=== PATIENT | male | born 1970 | race Caucasian/White ===

== ENCOUNTER 2018-07-25 13:01 | Inpatient (IN) | payer MEDICAID ==
[~2018-07-25] VITALS: Ht 176.5 cm; Wt 93.8 kg
[2018-07-25 15:40] VITALS: BP 120/83
--- NOTE | 2018-07-25 16:20 | Physical Therapy Evaluation ---
PT Evaluation-General Medical Diagnosis Admission Date Jul 25, 2018 at 15:30 Medical Diagnosis: lumbar radiculopathy Onset Date: Jul 18, 2018 Therapy Diagnosis Therapy Diagnosis: impaired mobility, strength, endurance Referral Physician: Diomedes Reason for Referral: Evaluation/Treatment Medical History Additional Medical History chronic back pain Reviewed History: Yes Social History Home: Single Level Current Living Status: Spouse Entry Into Home: Stairs With Railing PT Steps Into Home: 4 Prior/Core FIM Prior Level of Function Functional [place] Measure 0=Not Assessed/NA 4=Minimal Assistance 1=Total Assistance 5=Supervision or Setup 2=Maximal Assistance 6=Modified [place] 3=Moderate Assistance 7=Complete IndependenceIRFPAI Quality Coding Scale 6 Independent with activity with or without an assistive device 5 Patient requires set up or clean up by helper. Patient completes activity by themselves 4 Supervision or touching assist (CGA). [place] provide cues , steadying assist 3 The helper provides less than half the effort to complete the activity 2 The helper provides more than half the effort to complete the activity 1 Dependent. The helper does all the effort to complete an activity 7 Patient refused to complete or attempt activity 9 The patient did not perform the activity before the current illness or injury 88 Not attempted due to Medical conditions or safety concerns Bed Mobility: 7 Transfers (B,C,W/C) (FIM): 7 Gait: 7 PT Evaluation-Current Subjective Patient sitting EOB pre tx, agrees to PT, has 7/10 pain in his low back and right leg. Pt/Family Goals "to be able to use his right leg" Objective Patient Orientation: Person, Place, Situation ROM/Strength ROM Lower Extremities WNL Strenght Lower Extremities right lower extremity (hip flexion 1/5, knee flexion 1/5, knee extension 2/5, dorsiflexion 1/5), left lower extremity (hip flexion 4/5, knee flexion 4/5, knee extension 4/5, dorsiflexion 4/5) Neuromuscular (Tone, Coordination, Reflexes) NT Sensory Vision: Functional Hearing: Functional Sensation Right Lower Extremit: Impaired Sensation Left Lower Extremity: Intact Sensation Lower Extremities Patient has numbness on the medial right calf and foot and bottom of foot. Transfers Functional [place] Measure 0=Not Assessed/NA 4=Minimal Assistance 1=Total Assistance 5=Supervision or Setup 2=Maximal Assistance 6=Modified [place] 3=Moderate Assistance 7=Complete IndependenceIRFPAI Quality Coding Scale 6 Independent with activity with or without an assistive device 5 Patient requires set up or clean up by helper. Patient completes activity by themselves 4 Supervision or touching assist (CGA). [place] provide cues , steadying assist 3 The helper provides less than half the effort to complete the activity 2 The helper provides more than half the effort to complete the activity 1 Dependent. The helper does all the effort to complete an activity 7 Patient refused to complete or attempt activity 9 The patient did not perform the activity before the current illness or injury 88 Not attempted due to Medical conditions or safety concerns Transfers (B, C, W/C) (FIM): 5 Scootin Rollin Roll Left to Right (QC): 4 Supine to/from Sit: 5 Sit to/from Stand: 5 Sit to Lying (QC): 4 Lying to Sitting/Side of Bed(Q: 4 Sit to Stand (QC): 4 Chair/Dqr-cq-Cbfvw Xfer(QC): 4 Car Transfer (QC): 4 Patient performed bed mobility with SBA, supine <-> sit with SBA, sit <-> stand with SBA, transfers with SBA, car transfer with SBA. Patient needs cues for hand placement and positioning. Patient has difficulty moving right leg getting into and out of bed but he can do it with his hands, without assist. Gait Does the Patient Walk?: Yes Mode of Locomotion: Walk Anticipated Mode of Locomotion: Walk Gait (FIM): 2 Walk 10 feet (QC): 4 Walk 50 ft with 2 Turns(QC): 4 Walking 10ft/uneven surface-QC: 4 Distance: 50' Gait Level of Assist: 5 Gait Persons Needed: 1 Gait Assistive Device: FWW Comments/Gait Description Patient can ambulate 50' with a rolling walker with SBA (including 50' with at least 2 turns of 90 degrees and 10' over an uneven surface). Patient ambulates with a stiff right leg, advances it while dorsiflexing his right ankle, which contradicts his strength measurements. He bears a lot of weight through his arms on walker when ambulating. Wheelchair Training Does the Pt Use a Wheelchair?: No Stairs Stairs (FIM): 1 #of Steps: 1 Level of Assist: 4 1 Step (curb) (QC): 4 Assistive Device: Walker Patient can go up and down 1 step using a rolling walker with CGA. Cues for foot placement and safety. Balance Sitting Static: Normal Sitting Dynamic: Normal Standing Static: Good Standing Dynamic: Good Assessment/Needs Patient has impaired mobility, strength, endurance. He states he fell and hurt his back and right leg. From the pain he describes it almost sounds like he may have and SI dysfunction. Rehab Potential: Fair PT Short Term Goals Short Term Goals Time Frame: Aug 01, 2018 Transfers (B,C,W/C) (FIM): 5 Gait (FIM): 5 Gait Distance Comment: 200' Gait Level of Assist: 5 Gait Assistive Device: FWW PT Chcf Goals Choir Director Goals PT Ch[facility] Goals Time Frame: Aug 15, 2018 Transfers (B,C,W/C) (FIM): 6 Sit to Lying (QC): 6 Lying-Sitting on Side/Bed(QC): 6 Sit to Stand (QC): 6 Rollin Roll Left to Right (QC): 6 Chair/Icy-rg-Siyqd Xfer(QC): 6 Car Transfer (QC): 6 Gait (FIM): 6 Distance: 300' Walk 10 feet (QC): 6 Walk 10ft-Uneven Surface(QC): 6 Walk 50ft with 2 Turns (QC): 6 Walk 150 ft (QC): 6 Gait Level of Assist: 6 Gait Assistive Device: FWW Stairs (FIM): 6 # of Steps: 12 1 Step (curb) (QC): 6 4 Steps (QC): 6 12 Steps (QC): 6 Stairs Level Of Assist: 6 PT Plan Problem List Problem List: Activity Tolerance, Functional Strength, Safety, Balance, Gait, Transfer, Bed Mobility Treatment/Plan Treatment Plan: Continue Plan of Care Treatment Plan: Bed Mobility, Education, Functional Activity [place], Functional Strength, Group Therapy, Gait, Safety, Therapeutic Exercise, Transfers Treatment Duration: Aug 15, 2018 Frequency: At least 5 of 7 days/Wk (IRF) Estimated Hrs Per Day: 1.5 hours per day Patient and/or Family Agrees t: Yes Safety Risks/Education Patient Education: Gait Training, Transfer Techniques, Steps, Correct Positioning, Safety Issues Teaching Recipient: Patient Teaching Methods: Demonstration, Discussion Response to Teaching: Reinforcement Needed Discharge Recommendations Plan Patient will perform bed mobility and transfer training, balance and endurance training, functional strengthening, stair training, gait training, and education to improve functional mobility and independence at home. Therapy D/C Recommendations: Home w/ Family Support Time/GCodes Time In: 1530 Time Out: 1550 Total Billed Treatment Time: 20 Total Billed Treatment 1 visit EDY Richey' DIMITRIS CONTRERAS PT Jul 25, 2018 16:20
--- NOTE | 2018-07-25 16:44 | Occupational Therapy Eval ---
OT Evaluation-General/PLF Medical Diagnosis Admission Date Jul 25, 2018 at 15:30 Medical Diagnosis: Radiculopathy Onset Date: Jul 18, 2018 Therapy Diagnosis Therapy Diagnosis: Weakness Height/Weight Height (Feet): 5 Height (Inches): 9.50 Weight (Pounds): 200 Weight (Ounces): 8.0 Precautions Precautions/Isolations: Fall Prevention, Standard Precautions Weight Bear Status Weight Bearing Restriction: Weight Bearing/Tolerated Referral Physician: Diomedes Referral Reason: Activity Tolerance, Self Care, Evaluation/Treatment, Strengthening/ROM Medical History Additional Medical History Pt. states that he has been having pain in his back for 6 months. States that he has numbness in the bottom of his right foot. Reviewed History: Yes Social History Home: Single Level Current Living Status: Spouse Entry Into Home: Stairs With Railing Steps Into Home: 4 ADL-Prior Level of Function Functional [place] Measure 0=Not Assessed/NA 4=Minimal Assistance 1=Total Assistance 5=Supervision or Setup 2=Maximal Assistance 6=Modified [place] 3=Moderate Assistance 7=Complete [place] ADL PLOF Comments Pt. is independent with daily tasks. Self Care Self Care: (Code the patient's need for assistance with bathing, dressing, using the toilet, or eating prior to the current illness, exacerbation, or injury.) Functional Cognition Functional Cognition: (Code the patient's need for assistance with planning regular tasks, such as shopping or remembering to take medicaiton prior to the current illness, exacerbation, or injury.) DME/Equipment: Shower OT Current Status Subjective No pain reported at this time. Appearance Pt. is alert and oriented. Mental Status/Objective Patient Orientation: Person, Place, Time, Situation Current Upper Extremity ROM WFL ADL-Treatment Functional [place] Measure 0=Not Assessed/NA 4=Minimal Assistance 1=Total Assistance 5=Supervision or Setup 2=Maximal Assistance 6=Modified [place] 3=Moderate Assistance 7=Complete IndependenceIRFPAI Quality Coding Scale 6 Independent with activity with or without an assistive device 5 Patient requires set up or clean up by helper. Patient completes activity by themselves 4 Supervision or touching assist (CGA). [place] provide cues , steadying assist 3 The helper provides less than half the effort to complete the activity 2 The helper provides more than half the effort to complete the activity 1 Dependent. The helper does all the effort to complete an activity 7 Patient refused to complete or attempt activity 9 The patient did not perform the activity before the current illness or injury 88 Not attempted due to Medical conditions or safety concerns Transfers (B, C, W/C) (FIM): 5 (SBA sit-stand with walker.) Other Treatments OT eval initiated with pt. Initiated transfer training and discussion regarding home set up and previous level of independence. Education OT Patient Education: Correct positioning, Modified ADL techniques, Progress toward Goal/Update tx plan, Purpose of tx/functional activities, Reviewed precautions, Rehab process, Transfer techniques Teaching Recipient: Patient Teaching Methods: Demonstration, Discussion Response to Teaching: Verbalize Understanding, Return Demonstration OT Short Term Goals Short Term Goals 1=Demonstrate adherence to instructed precautions during ADL tasks. 2=Patient will verbalize/demonstrate understanding of assistive devices/ modifications for ADL. 3=Patient will improve strength/tolerance for activity to enable patient to perform ADL's. OT Mcfp Goals Sales Program Manager Goals Time Frame: Aug 08, 2018 Eating (FIM): 6 Eating (QC): 6 Groomin Oral Hygiene (QC): 6 Bathing(FIM): 6 Shower/Bathe Self (QC): 6 Upper Body Dressing(FIM): 6 Upper Body Dressing (QC): 6 Lower Body Dressing(FIM): 6 Lower Body Dressing (QC): 6 On/Off Footwear (QC): 6 Toileting(FIM): 6 Toileting Hygiene (QC): 6 Transfers (B,C,W/C) (FIM): 6 Toilet/Commode Transfer(FIM): 6 Toilet/Commode Transfer (QC): 6 Shower Transfer(FIM): 6 Additional Goals: 1-Demonstrate ADL Tasks, 2-Verbalize Understanding, 3- ImproveStrength/[place] 1=Demonstrate adherence to instructed precautions during ADL tasks. 2=Patient will verbalize/demonstrate understanding of assistive devices/ modifications for ADL. 3=Patient will improve strength/tolerance for activity to enable patient to perform ADL's. OT Education/Plan Problem List/Assessment Assessment: Decreased Activ Tolerance, Impaired I ADL's, Impaired Self-Care Skills Discharge Recommendations Plan/Recommendations: Continue POC Therapy D/C Recommendations: Home w/ Family Support Comment Equipment needs to be decided at later time. Treatment Plan/Plan of Care Treatment,Training & Education: Yes Patient would benefit from OT for education, treatment and training to promote independence in ADL's, mobility, safety and/or upper extremity function for ADL' s. Plan of Care: ADL Retraining, Functional Mobility, Group Exercise/Act as Ind Treatment Duration: Aug 08, 2018 Frequency: At least 5 of 7 days/Wk (IRF) Estimated Hrs Per Day: 1.5 hours per day Agreement: Yes Rehab Potential: Good Time/GCodes Start Time: 15:55 Stop Time: 16:15 Total Time Billed (hr/min): 20 Billed Treatment Time 1, IMELDA ORANTES OT Jul 25, 2018 16:44
--- OUTSIDE RECORDS SUMMARY | 2018-07-25 16:48 | XMS REPORT ---
Author Author STAN JACKSON [facility] Address [address] [place] [address] Care Team Providers Care Fire Extinguisher Charger Name Role Phone STAN JACKSON Unavailable PROBLEMS Type Condition ICD9-CM Code [id number] Code Onset Dates Condition Status SNOMED Code Problem Positive urine drug screen R82.5 Active 924256370 Problem Acute bilateral low back pain with right-sided sciatica M54.41 Active 625757499 Problem Elevated blood pressure reading R03.0 Active 31738007 ALLERGIES Unknown Allergies SOCIAL HISTORY No smoking Hx information available PLAN OF CARE VITAL SIGNS MEDICATIONS Unknown Medications RESULTS No Results PROCEDURES No Known procedures IMMUNIZATIONS No Known Immunizations
--- OUTSIDE RECORDS SUMMARY | 2018-07-25 16:48 | XMS REPORT ---
Author Author STAN JACKSON Organization [facility] Address [address] [place] [address] Care Team Providers Care Stock Preparation Operator Name Role Phone STAN JACKSON Unavailable PROBLEMS Type Condition ICD9-CM Code [id number] Code Onset Dates Condition Status SNOMED Code Problem Acute bilateral low back pain with right-sided sciatica M54.41 Active 092610920 Problem Positive urine drug screen R82.5 Active 822315662 Problem Elevated blood pressure reading R03.0 Active 57359096 ALLERGIES Substance Reaction Event Type Date Status N.K.D.A. Unknown Non Drug Allergy Aug, Unknown SOCIAL HISTORY No smoking Hx information available PLAN OF CARE Activity Details Follow Up TBD Reason: VITAL SIGNS Height 70.2 in 2016-09-14 Weight 204.3 lbs 2016-09-14 Temperature 98.2 degrees Fahrenheit 2016-09-14 Heart Rate 96 bpm 2016-09-14 Respiratory Rate 18 2016-09-14 BMI 29.14 kg/m2 2016-09-14 Blood pressure systolic 142 mmHg 2016-09-14 Blood pressure diastolic 98 mmHg 2016-09-14 MEDICATIONS Unknown Medications RESULTS Name Result Date Reference Range URINE DRUG SCREEN (IN HOUSE) 2016-09-14 Lot # [id number] Exp date 05/2017 Control positive COCAINE neg AMPH neg MTD neg THC pos OPIATE neg BENZO pos PCP neg BAR neg OXY neg MAMP pos TCA BUP MDMA UA LONG DIP (IN HOUSE) 2016-09-14 Lot # [id number] Exp date 03/2017 Clarity clear Color yellow Odor none GLU negative BIN 1+ KET Trace SG > 1.030 BLO negative pH 6.0 Protein negative URO 1.0 E.U./dL NIT neg AGUSTINA neg Lot # Exp date PROCEDURES Procedure Date Ordered Related Diagnosis Body Site DRUG SCREEN NON TLC DEVICES Sep 14, 2016 Office Visit, New Pt., Level 3 Sep 14, 2016 URINALYSIS, AUTO, W/O SCOPE Sep 14, 2016 IMMUNIZATIONS No Known Immunizations
--- NOTE | 2018-07-25 17:55 | PM&R Post Admission Assessment ---
Post Admission Physician Asses Date seen by provider: Jul 25, 2018 Time seen by provider: 17:25 The preadmission screen agrees with the post admission assessment that the patient is a good candidate for inpatient rehabilitation. The patient will have a comprehensive program of inpatient rehabilitation with a goal of maximizing level of functional independence prior to discharge home with family. The patient will have PT/OT ninety minutes per day, each discipline, five days a week for 2 weeks for gait, strengthening, conditioning, balance, ADLs, any patient/family/caregiver training as necessary. Speech therapy to do cognitive assessment and treat as indicated. Rehabilitation nursing to assist with bowel, bladder, skin, wound care, medication administration, pain management. Legal Administrative Secretary to assist with discharge planning, community reentry. SCD's and lovenox subcut for DVT prophylaxis. He appears to be well motivated to participate in three hours of therapy a day. He should be able to tolerate three hours of therapy a day from a medical standpoint. He should benefit from the three hours of therapy a day. He has a reasonable discharge plan, reasonable discharge rehabilitation goals and a supportive family. He has various comorbidities that need to be closely monitored with medications and treatments adjusted on a daily basis as needed. These include: chronic back and radicular pain rt leg [facility] code 04.130 Etiologic DX Acute lumbar radiculopathy Barriers to discharge for this patient who had been independent prior to this are for him to be modified independent to supervision for ADLs and mobility skills prior to discharge home with family, so as to lessen the burden of the caregivers. Risks for this patient include: 1. Fall 2. Fracture 3. DVT 4. Pulmonary embolism 5. Wound infection 6. Skin breakdown 7. Contractures 8. Poorly controlled pain 9. Urinary retention 10. UTI 11. Respiratory infection 12. Aspiration Estimated Length of Stay: 14 days Prognosis: Rehab prognosis appears good for goal of discharge home with family modified independent to supervision for ADLs and mobility skills. Date Identified: Jul 25, 2018 Time Identified: 17:30 Action Plan to Resolve CSMI: Transfer meds reviewed Lovenox subcut added for dvt prophylaxis General: Alert, Oriented X3, Cooperative, No Acute Distress, Other (c/o rt leg weakness and pain) HEENT: Atraumatic, PERRLA, EOMI, Mucous Memb Moist/[address] [place] Neck: Supple, No JVD Lungs: Clear to Auscultation Heart: Regular Rate Abdomen: Normal Bowel Sounds, Soft, No Tenderness Extremities: No Edema Skin: No Rashes, No Breakdown, No Significant Lesion Neuro: Other (and weakness RLE 1to 2/5 on the left 4/5) Psych/Mental Status: Mental Status NL JEOVANY COUGHLIN MD Jul 25, 2018 17:54
[2018-07-25] MEDS: ACETAMINOPHEN 500 MG TAB (TYLENOL) PO SCH (17:59)
[2018-07-25] MEDS: ENOXAPARIN 40 MG/0.4 ML (LOVENOX) SYR SC SCH (18:31)
--- NOTE | 2018-07-25 19:15 | HISTORY AND PHYSICAL ---
DATE OF SERVICE: 07/25/2018 CHIEF COMPLAINT: Painful right leg with weakness and difficulty to walk. HISTORY OF PRESENT ILLNESS: The patient is a 48-year-old male who is unemployed from a [employer] and lives with his spouse in [place], [place] who has had chronic back pain, but has an exacerbation when he twisted his leg. He was seen at [facility] by neurology and their assessment was lumbar radiculopathy acute associated with gait abnormality and foraminal stenosis due to intervertebral disk disease with associated right leg weakness. There is also history of apparent polysubstance abuse and the patient is currently only on Tylenol, Flexeril, Celebrex and gabapentin. Currently, he is min assist for gait and transfers. He is independent for eating, set up for upper body dressing, min to mod assist for lower body dressing. He is reported to be continent of bowel and bladder. He is complaining of intermittent pain and numbness in the right leg with associated weakness. The patient was seen by neurosurgery as well. He had been independent prior to this. PAST MEDICAL HISTORY: Chronic back pain. He reports having seen a pain doctor in the past for an injection, hypothyroidism, tobaccoism. PAST SURGICAL HISTORY: Knee and shoulder arthroscopies. ALLERGIES: No known medication allergies. FAMILY HISTORY: Noncontributory. SOCIAL HISTORY: Lives in a [place] home with his spouse and children. MRI of the pelvis revealed L4-L5 vertebral body contusion from trauma apparently, disk herniation and foraminal stenosis, significant lumbar spine degenerative disk disease and disk bulging with some neural foraminal stenosis. REVIEW OF SYSTEMS: Pain, weakness, numbness in the right leg. MEDICATIONS: Tylenol Extra Strength 1000 mg p.o. q.8 hours, Celebrex 200 mg p.o. b.i.d., Flexeril 10 mg p.o. q.8 hours p.r.n. muscle spasm, gabapentin 300 mg p.o. t.i.d. PHYSICAL EXAMINATION: GENERAL: Significant for a male appearing stated age, lying in bed, no acute distress. VITAL SIGNS: He is afebrile, pulse is 82, respirations 20, blood pressure 120/83, O2 sat 100% on room air. HEENT: Vision, speech, hearing grossly intact. No oral lesion is noted. NECK: Supple without mass. HEART: Regular rhythm. CHEST: Clear. ABDOMEN: Soft, nontender, bowel sounds present. EXTREMITIES: No lower leg edema, no calf tenderness. MUSCULOSKELETAL: The patient has functional passive range of motion in all 4 extremities. NEUROLOGIC: Sensation is impaired to touch with some numbness reported in the medial right calf and foot and bottom of foot; strength on the left is 4/5, on the right varies between 2-/5 to 2+/5. Cognition is grossly intact. IMPRESSION: 1. Ambulatory dysfunction secondary to foraminal stenosis due to intervertebral disk disease with associated right leg weakness, pain and lumbar radiculopathy. 2. History of polysubstance abuse. 3. Tobaccoism PLAN: The patient will have a comprehensive program of inpatient rehabilitation with goal of maximizing level of functional independence prior to discharge home with spouse. The patient will have PT, OT 90 minutes per day for gait strengthening, conditioning, ADLs, any modalities as needed 5 days a week for 2 weeks, 90 minutes per day each discipline. With the above goals in mind, rehabilitation nursing assist with bowel, bladder, skin care, medication administration, pain management and licensed social worker for discharge planning, community reentry. Avoid controlled substances as much as possible and use Medrol Dosepak and or Lidoderm patch as needed. Social work to assist with discharge planning, community reentry. Speech therapy to do cognitive assessment and treat as indicated. Please see post-admission physician evaluation, which is a separate document for details of bladder care. Routine admission labs.Lovenox for DVT Prophylaxis. ESTIMATED LENGTH OF STAY: 14 days. PROGNOSIS: Rehab prognosis appears good for goal of discharging home with spouse, modified independent to supervision for ADLs and mobility skills with improved strength and endurance and decreased pain. DIET: Regular. CODE STATUS: Full code. Job ID: [id number] DocumentID: [id number] Dictated Date: 07/25/2018 18:39:36 Tower Air Traffic Control Specialist Date: 07/25/2018 19:14:39 Dictated By: JEOVANY COUGHLIN MD [facility]
[2018-07-25] MEDS: GABAPENTIN 300 MG (NEURONTIN) CAP PO SCH (20:24)
[2018-07-25] MEDS: CYCLOBENZAPRINE 10 MG (FLEXERIL) TAB PO PRN (20:24)
[2018-07-25] MEDS ORDERED: CELECOXIB 100 MG (CeleBREX) CAP PO SCH (21:00)
[2018-07-25] MEDS ORDERED: KETOROLAC 30 MG/ML VIAL IVP PRN (21:30)
[2018-07-26] MEDS: ACETAMINOPHEN 500 MG TAB (TYLENOL) PO SCH (01:11)
[2018-07-26 05:27] VITALS: BP 115/74
[2018-07-26 06:57] LABS: BASOPHILS # (AUTO) 0.1 10^3/uL (0.0-0.1); BASOPHILS % (AUTO) 1 % (0-10); EOSINOPHILS # (AUTO) 0.5 10^3/uL (0.0-0.3); EOSINOPHILS % (AUTO) 4 % (0-10); HEMATOCRIT 41 % (40-54); HEMOGLOBIN 13.8 G/DL (13.3-17.7); LYMPHOCYTES # (AUTO) 1.5 X 10^3 (1.0-4.0); LYMPHOCYTES % (AUTO) 14 % (12-44); MEAN CORPUSCULAR HEMOGLOBIN 28 PG (25-34); MEAN CORPUSCULAR HGB CONC 34 G/DL (32-36); MEAN CORPUSCULAR VOLUME 84 FL (80-99); MEAN PLATELET VOLUME 10.4 FL (7.4-10.4); MONOCYTES # (AUTO) 1.1 X 10^3 (0.0-1.0); MONOCYTES % (AUTO) 10 % (0-12); NEUTROPHILS # (AUTO) 7.7 X 10^3 (1.8-7.8); NEUTROPHILS % (AUTO) 71 % (42-75); PLATELET COUNT 269 10^3/uL (130-400); RED BLOOD COUNT 4.91 10^6/uL (4.35-5.85); RED CELL DISTRIBUTION WIDTH 14.2 % (10.0-14.5); WHITE BLOOD COUNT 10.8 10^3/uL (4.3-11.0)
[2018-07-26 07:18] LABS: ALANINE AMINOTRANSFERASE 76 U/L (0-55); ALBUMIN 3.7 GM/DL (3.2-4.5); ALKALINE PHOSPHATASE 124 U/L (40-136); BILIRUBIN,TOTAL 0.4 MG/DL (0.1-1.0); BUN/CREATININE RATIO 18; CALCIUM 9.4 MG/DL (8.5-10.1); CARBON DIOXIDE 27 MMOL/L (21-32); CHLORIDE 105 MMOL/L (98-107); CREATININE SERUM 0.78 MG/DL (0.60-1.30); GFR ESTIMATED > 60; GLUCOSE 88 MG/DL (70-105); POTASSIUM 4.2 MMOL/L (3.6-5.0); SODIUM 140 MMOL/L (135-145); TOTAL PROTEIN 6.8 GM/DL (6.4-8.2)
--- NOTE | 2018-07-26 08:11 | Consultation ---
History of Present Illness History of Present Illness Patient Consulted On(lorin/time) 07/26/18 08:06 Time Seen by Provider: 08:06 History of Present Illness Patient age 48 lives with spouse in [facility]. Patient has chronic back pain. Patient twisted his leg and hurt his back again. Patient has history of smoking. Hypothyroid. Surgeries left knee and left shoulder. Family history bone cancer mother and father. Patient has elevated liver tests and on Tylenol and Celebrex to put on hold Allergies and Home Medications Allergies Coded Allergies: No Known Drug Allergies (Unverified , 07/25/18) Patient Home Medication List Home Medication List Reviewed: Yes Past Nsqnlmw-Gvyblv-Auzbvj Hx Patient Social History Alcohol Use: Occasionally Uses Alcohol Beverage of Choice: Beer Recreational Drug Use: No Smoking Status: Current Everyday Smoker Type Used: Cigarettes Recent Foreign Travel: No Contact w/Someone Who Travel: No Recent Infectious Disease Expo: No Immunizations Up To Date Date of Influenza Vaccine: Jul 25, 2018 Seasonal Allergies Seasonal Allergies: No Past Medical History Respiratory: No Currently Using CPAP: No Currently Using BIPAP: No Neurological: No Genitourinary: No Gastrointestinal: No Musculoskeletal: Yes Degenerate Disk Disease, Arthritis, Back Injury Endocrine: Yes Cancer: No Psychosocial: Yes Depression Integumentary: No Review of Systems-General Constitutional: no symptoms reported EENTM: no symptoms reported Respiratory: no symptoms reported Cardiovascular: no symptoms reported Gastrointestinal: no symptoms reported Genitourinary: no symptoms reported Physical Exam-General Problems Physical Exam Vital Signs Vital Signs - First Documented 07/25/18 15:40 Temp 96.5 Pulse 82 Resp 20 B/P (MAP) 120/83 (95) Pulse Ox 100 O2 Delivery Room Air Capillary Refill : General Appearance: WD/WN, no apparent distress Eyes: Bilateral Eye Normal Inspection HEENT: normal ENT inspection Neck: non-tender, full range of motion Respiratory: chest non-tender, normal breath sounds, no respiratory distress, no accessory muscle use Cardiovascular: regular rate, rhythm, no murmur Gastrointestinal: non tender, soft Assessment/Plan Assessment/Plan Admission Diagnosis/Plan Lumbar radiculopathy. Elevated liver tests. Hypothyroid. Tobaccoism Admission Status: Inpatient Order (span 2 midnights) Reason for Inpatient Admission: Back pain. Clinical Quality Measures DVT/VTE Risk/Contraindication: Risk Factor Score Per Nursin RFS Level Per Nursing on Admit: 2=Moderate CRISTHIAN DEL TORO DO Jul 26, 2018 08:11
[2018-07-26] MEDS: CYCLOBENZAPRINE 10 MG (FLEXERIL) TAB PO PRN ×2 (08:23→20:19)
[2018-07-26] MEDS: GABAPENTIN 300 MG (NEURONTIN) CAP PO SCH ×3 (08:23→20:19)
[2018-07-26 08:28] LABS: BAND NEUTROPHILS 4 %; BASOPHILS % (MANUAL) 0 %; EOSINOPHILS % (MANUAL) 5 %; LYMPHOCYTES % (MANUAL) 16 %; MONOCYTES % (MANUAL) 5 %; MYELOCYTES % 6 %; NEUTROPHILS % (MANUAL) 64 %; RBC MORPH NORMAL
--- NOTE | 2018-07-26 08:56 | Physical Therapy Daily Note ---
PT Daily Note-Current Subjective Patient in bed pre tx, agrees to PT, has pain of 8/10 in back. Nurse got patient pain meds during treatment. Patient dressed upper with independence. Appearance Patient BTB post tx with nurse call, phone, tray, all needs met. Mental Status Patient Orientation: Normal For Age Transfers Functional [place] Measure 0=Not Assessed/NA 4=Minimal Assistance 1=Total Assistance 5=Supervision or Setup 2=Maximal Assistance 6=Modified [place] 3=Moderate Assistance 7=Complete IndependenceIRFPAI Quality Coding Scale 6 Independent with activity with or without an assistive device 5 Patient requires set up or clean up by helper. Patient completes activity by themselves 4 Supervision or touching assist (CGA). [place] provide cues , steadying assist 3 The helper provides less than half the effort to complete the activity 2 The helper provides more than half the effort to complete the activity 1 Dependent. The helper does all the effort to complete an activity 7 Patient refused to complete or attempt activity 9 The patient did not perform the activity before the current illness or injury 88 Not attempted due to Medical conditions or safety concerns Transfers (B, C, W/C) (FIM): 6 Scootin Rollin Supine to/from Sit: 6 Sit to/from Stand: 5 Bed to/from Chair: 5 Occasional cues for hand placement and safety during transfers. Gait Training Gait (FIM): 5 Distance: 150'x2 Gait Level of Assist: 5 Gait Persons Needed: 1 Gait Assistive Device: FWW Antalgic ambulation with stiff right leg but patient dorsiflexes foot and has a heel strike. Exercises Seated Therapy Exercises: Ankle pumps, Long arc quads Seated Reps: 15 Standing: Hip Abduction, Heel/toe raises, Marching, Mini squats Standing Reps: 20 NuStep Minutes: 15 NuStep Workload: 5 Treatments bed mobility and transfers, ambulation, functional strengthening Assessment Current Status: Fair Progress Improve overall mobility. Patient was able to perform a LAQ on the right side. PT Short Term Goals Short Term Goals Time Frame: Aug 01, 2018 Transfers (B,C,W/C) (FIM): 5 Gait (FIM): 5 Gait Distance Comment: 200' Gait Level of Assist: 5 Gait Assistive Device: FWW PT Vascular Radiologist Goals Vascular Radiologist Goals PT Chcf Goals Time Frame: Aug 15, 2018 Transfers (B,C,W/C) (FIM): 6 Sit to Lying (QC): 6 Lying-Sitting on Side/Bed(QC): 6 Sit to Stand (QC): 6 Rollin Roll Left to Right (QC): 6 Chair/Avm-sh-Bkgid Xfer(QC): 6 Car Transfer (QC): 6 Gait (FIM): 6 Distance: 300' Walk 10 feet (QC): 6 Walk 10ft-Uneven Surface(QC): 6 Walk 50ft with 2 Turns (QC): 6 Walk 150 ft (QC): 6 Gait Level of Assist: 6 Gait Assistive Device: FWW Stairs (FIM): 6 # of Steps: 12 1 Step (curb) (QC): 6 4 Steps (QC): 6 12 Steps (QC): 6 Stairs Level Of Assist: 6 PT Plan Problem List Problem List: Activity Tolerance, Functional Strength, Safety, Balance, Gait, Transfer Treatment/Plan Treatment Plan: Continue Plan of Care Treatment Plan: Bed Mobility, Education, Functional Activity Wilfrido, Functional Strength, Group Therapy, Gait, Safety, Therapeutic Exercise, Transfers Treatment Duration: Aug 15, 2018 Frequency: At least 5 of 7 days/Wk (IRF) Estimated Hrs Per Day: 1.5 hours per day Patient and/or Family Agrees t: Yes Safety Risks/Education Patient Education: Gait Training, Transfer Techniques, Correct Positioning, Safety Issues Teaching Recipient: Patient Teaching Methods: Demonstration, Discussion Response to Teaching: Reinforcement Needed Time/GCodes Time In: 0800 Time Out: 0900 Total Billed Treatment Time: 60 Total Billed Treatment 1 visit EX 30' GT 20' FA 10' DIMITRIS CONTRERAS PT Jul 26, 2018 08:56
[2018-07-26] MEDS: DICLOFENAC 1% GEL 100 GM (VOLTAREN) TUBE TOP PRN (09:50)
--- NOTE | 2018-07-26 10:43 | PM & R (SOAP) Progress Note ---
Subjective This was a face to face visit with the patient. Date Seen by Provider: Jul 26, 2018 Time Seen by Provider: 09:30 Subjective/Events-last exam Patient was seen in his room this AM reports a restless sleep .Point to point tenderness over the Rt SI joint area as location of pain Lies on left side.Patient SBA for transfers.RN contacted me last night re request for increased pain med Toradol IM and Tramadol ordered-trying to avoid controlled substances Offered Medrol dosepak bu patient unclear if steroids have helped in past Date Identified: Jul 26, 2018 Time Identified: 09:30 Medication Intervention: Pain management as per above Review of Systems Musculoskeletal: back pain, leg pain Objective Physician Exam Last Set of Vital Signs Vital Signs Date Time Temp Pulse Resp B/P (MAP) Pulse Ox O2 Delivery O2 Flow Rate FiO2 07/26/18 05:27 96.8 75 20 115/74 (88) 96 Room Air Capillary Refill : I&O Intake and Output 07/26/18 00:00 Intake Total 300 ml Output Total 0 ml Balance 300 ml Intake Oral 300 ml Output Urine Total 0 ml Daily Weight Change Yes, 14-23 lbs General: Alert, Oriented X3, Cooperative, No Acute Distress, Other (c/o rt leg weakness and pain) HEENT: Atraumatic, PERRLA, EOMI, Mucous Memb Moist/[place] Neck: Supple, No JVD Lungs: Clear to Auscultation Heart: Regular Rate Abdomen: Normal Bowel Sounds, Soft, No Tenderness Extremities: No Edema Skin: No Rashes, No Breakdown, No Significant Lesion Neuro: Other (and weakness RLE 1to 2/5 on the left 4/5) Psych/Mental Status: Mental Status NL Results Lab Data Laboratory Tests 07/26/18 06:40: White Blood Count 10.8, Red Blood Count 4.91, Hemoglobin 13.8, Hematocrit 41, Mean Corpuscular Volume 84, Mean Corpuscular Hemoglobin 28, Mean Corpuscular Hemoglobin Concent 34, Red Cell Distribution Width 14.2, Platelet Count 269, Mean Platelet Volume 10.4, Neutrophils (%) (Auto) 71, Lymphocytes (%) (Auto) 14 , Monocytes (%) (Auto) 10, Eosinophils (%) (Auto) 4, Basophils (%) (Auto) 1, Neutrophils # (Auto) 7.7, Lymphocytes # (Auto) 1.5, Monocytes # (Auto) 1.1H, Eosinophils # (Auto) 0.5H, Basophils # (Auto) 0.1, Neutrophils % (Manual) 64, Lymphocytes % (Manual) 16, Monocytes % (Manual) 5, Eosinophils % (Manual) 5, Basophils % (Manual) 0, Myelocytes % 6, Band Neutrophils 4, Blood Morphology Comment NORMAL, Sodium Level 140, Potassium Level 4.2, Chloride Level 105, Carbon Dioxide Level 27, Anion Gap 8, Blood Urea Nitrogen 14, Creatinine 0.78, Estimat Glomerular Filtration Rate > 60, BUN/Creatinine Ratio 18, Glucose Level 88, Calcium Level 9.4, Corrected Calcium 9.6, Total Bilirubin 0.4, Aspartate Amino Transf (AST/SGOT) 39H, Alanine Aminotransferase (ALT/SGPT) 76H, Alkaline Phosphatase 124, Total Protein 6.8, Albumin 3.7 Assessment/Plan Assessment and Plan 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
--- NOTE | 2018-07-26 10:50 | Occupational Ther Daily Note ---
OT Current Status-Daily Note Subjective Pt. states that he did not sleep well last night. Appearance Pt. in bed. Agrees to work with therapy. Mental Status/Objective Patient Orientation: Person, Place, Time, Situation Functional Daniel Measure 0=Not Assessed/NA 4=Minimal Assistance 1=Total Assistance 5=Supervision or Setup 2=Maximal Assistance 6=Modified Daniel 3=Moderate Assistance 7=Complete Daniel ADL-Treatment Functional Daniel Measure 0=Not Assessed/NA 4=Minimal Assistance 1=Total Assistance 5=Supervision or Setup 2=Maximal Assistance 6=Modified Daniel 3=Moderate Assistance 7=Complete IndependenceIRFPAI Quality Coding Scale 6 Independent with activity with or without an assistive device 5 Patient requires set up or clean up by helper. Patient completes activity by themselves 4 Supervision or touching assist (CGA). [place] provide cues , steadying assist 3 The helper provides less than half the effort to complete the activity 2 The helper provides more than half the effort to complete the activity 1 Dependent. The helper does all the effort to complete an activity 7 Patient refused to complete or attempt activity 9 The patient did not perform the activity before the current illness or injury 88 Not attempted due to Medical conditions or safety concerns Grooming (FIM): 5 (SBA to stand and brush teeth and hair at sink. Utilized walker.) Oral Hygiene (QC): 4 Bathing (FIM): 5 (Pt. requires SBA in shower. Somewhat impulsive at times. Requires cues for safety.) Shower/Bathe Self (QC): 4 Upper Body (FIM): 5 Upper Body Dressing (QC): 4 Lower Body Dressing (FIM): 4 (Pt. is able to doff pants in stance. Requires cues to sit due to safety concerns. Pt. able to doff socks while sitting. Able to don pants with SBA and left sock with SBA. Required min assistance to don right sock as pt. was educated in back safety.) Lower Body Dressing (QC): 4 On/Off Footwear (QC): 4 Toileting (FIM): 5 (SBA for all kisha care.) Toileting Hygiene (QC): 4 Transfers (B, C, W/C) (FIM): 4 (CGA to ambulate with walker as pt. states that he does not feel steady, and that he does not feel the bottom of his right foot. ) Toilet/Commode Transfer (FIM): 5 Toilet Transfer (QC): 4 Shower Transfer(FIM): 5 Other Treatment Pt. was educated regarding back safety and back precautions due to back pain. Pt. verbalizes understanding. Pt. shown and issued adaptive equipment but unable to practice yet. Pt. verbalizes that it has been difficult to live with this pain. Pt. has three children at home that are under three years old. Pt. states that he would like to be more independent and to be able to take care of his children. Pt. back in bed at end of treatment. Education OT Patient Education: Correct positioning, Modified ADL techniques, Progress toward Goal/Update tx plan, Purpose of tx/functional activities, Reviewed precautions, Rehab process, Transfer techniques, Use of adapted equipment Teaching Recipient: Patient Teaching Methods: Demonstration, Discussion Response to Teaching: Verbalize Understanding, Return Demonstration OT Short Term Goals Short Term Goals Transfers (B,C,W/C) (FIM): 5 1=Demonstrate adherence to instructed precautions during ADL tasks. 2=Patient will verbalize/demonstrate understanding of assistive devices/ modifications for ADL. 3=Patient will improve strength/tolerance for activity to enable patient to perform ADL's. OT Assisted Goals Rn Practitioner Goals Time Frame: Aug 08, 2018 Eating (FIM): 6 Eating (QC): 6 Groomin Oral Hygiene (QC): 6 Bathing(FIM): 6 Shower/Bathe Self (QC): 6 Upper Body Dressing(FIM): 6 Upper Body Dressing (QC): 6 Lower Body Dressing(FIM): 6 Lower Body Dressing (QC): 6 On/Off Footwear (QC): 6 Toileting(FIM): 6 Toileting Hygiene (QC): 6 Transfers (B,C,W/C) (FIM): 6 Toilet/Commode Transfer(FIM): 6 Toilet/Commode Transfer (QC): 6 Shower Transfer(FIM): 6 Additional Goals: 1-Demonstrate ADL Tasks, 2-Verbalize Understanding, 3- ImproveStrength/Wilfrido 1=Demonstrate adherence to instructed precautions during ADL tasks. 2=Patient will verbalize/demonstrate understanding of assistive devices/ modifications for ADL. 3=Patient will improve strength/tolerance for activity to enable patient to perform ADL's. OT Education/Plan Problem List/Assessment Assessment: Decreased Activ Tolerance, Decreased Safety Aware, Decreased UE Strength, Impaired Funct Balance, Impaired I ADL's, Impaired Self-Care Skills Discharge Recommendations Plan/Recommendations: Continue POC Therapy D/C Recommendations: Home w/ Family Support Equpiment Recommendations-D/C: Hip Kit Treatment Plan/Plan of Care Treatment,Training & Education: Yes Patient would benefit from OT for education, treatment and training to promote independence in ADL's, mobility, safety and/or upper extremity function for ADL' s. Plan of Care: ADL Retraining, Functional Mobility, Group Exercise/Act as Ind Treatment Duration: Aug 08, 2018 Frequency: At least 5 of 7 days/Wk (IRF) Estimated Hrs Per Day: 1.5 hours per day Agreement: Yes Rehab Potential: Good Time/GCodes Start Time: 09:30 Stop Time: 10:35 Total Time Billed (hr/min): 65 Billed Treatment Time 1, ADL x 4 IMELDA FLORES OT Jul 26, 2018 10:50
[2018-07-26] MEDS: KETOROLAC 30 MG/ML VIAL IM PRN ×2 (13:06→20:23)
--- NOTE | 2018-07-26 15:38 | ST Cognitive Linguistic Eval ---
Speech Evaluation-General Medical Diagnosis lumbar radiculopathy Onset Date: Jul 18, 2018 Therapy Diagnosis Therapy Diagnosis: Cognition Precautions Precautions/Isolations: Fall Prevention, Standard Precautions Referral Referring Physician: Dr. Hercules Reason for Referral: Evaluation/Treatment Medical History Reviewed History: Yes Social History Current Living Status: Spouse Speech PLF-Current Status Prior Level of Function Independent Subjective Pt in bed. Pleasant and cooperative. Pain Numeric Pain Scale: 8 Location: Right Location Body Site: Cheek Pain Description: Stabbing Language Eval: Auditory Comprehends Simple Yes/No Ques: Functional Follows Complex Directions: Functional Follows General Conversations: Functional Language Eval: Verbal Language Completes Spontaneous Greeting: Functional Produces Auto, Serial Info: Functional Word Finding: Functional Requests Basic Needs: Functional States Basic Personal Info: Functional Expresses Complex Ideas: Functional Language Evaluation: Reading NT Cognitive Patient Orientation oriented x 3 Objective Cognitive Domain Attention: WNL Memory: WNL Problem Solving: Functional Objective Results [facility] Cogntive/Communication Assessment was administered to assess cognitive -linguistic functioning. Results are as follows: Memory - 3 word recall was 3/3 correct for immediate, delayed and remote delay. Sequencing/organization - Pt was 4/4 correct Problem Solving - Simple was 4/4 correct; Abstract was 2/2 correct and Comparisons was 5/5 correct. Speech/language WNL Oral Motor/Speech Production WNL Impression Pt demonstrates functional cognitive-linguistic skills. No skilled ST indicated. Communication/Social Cognition Comprehension: 7 Expression: 7 Social Interaction: 7 Problem Solvin Memory: 7 Speech Patient Assess Expression of Ideas/Wants: Expression (4) Understanding Verbal Content: Understands (4) Brief Interview-Mental Status: Yes Repetition of Three Words: Three (3) Temporal Orientation: Year: Correct (3) Temporal Orientation: Month: Accurate within 5 days(2) Temporal Orientation: Day: Correct (1) Recall : Wear to say "Sock": Yes, no cue required (2) Recall : Color: Yes, no cue required (2) Recall : Bed: Yes, no cue required (2) Speech Short Term Goals Short Term Goals Short Term Goals no goals established as pt does not require skilled ST Speech Long-Term Goals Long-Term Goals No goals established as pt does not require skilled ST Speech-Plan Patient/Family Goals Patient/Family Goals: to return home. Treatment Plan Speech Therapy Treatment Plan: Discontinue ST pt does not require skilled ST Frequency: Modified Program (IRF) (0) Estimated Hrs Per Day: Other (0) Rehab Potential: Good Pt/Family Agrees to Plan: Yes Safety Risks/Education Teaching Recipient: Patient Teaching Methods: Discussion Response to Teaching: Verbalize Understanding Time Speech Therapy Time In: 14:55 Speech Therapy Time Out: 15:15 Total Billed Time: 20 Billed Treatment Time 1, WILDA LAMBERT Jul 26, 2018 15:38
--- NOTE | 2018-07-26 15:40 | Therapy Group Daily Note ---
Therapy Daily Group Note Patient Education Topic Other List Below (Transfer Training) Exercises LE Seated Exercise, UE Exercise Other/Notes Pt ambulated to PT/OT Group using FWW. Group consists of Introduction (Name, Where you are from & [place] Ingredient), Socialize, UE/ LE EX, Education and Demonstration of proper Transfer Techniques. Pt actively participated in group by appropriately listening to peer during discussion, performing Exercises and listening and giving feedback during transfer training. Pt returns to room at end of Group to rest. Start Time: 13:00 Stop Time: 14:15 Total Billed Treatment Time: 75 Total Billed Treatment 1, GRP BERNADETTE FAN PIN TICKET MACHINE OPERATOR Jul 26, 2018 15:40
--- NOTE | 2018-07-26 16:06 | Individualized Plan of Care ---
Individualized Plan of Care Rehab Nursing IPOC Order Admission Date Jul 25, 2018 at 15:30 Current Orders Orders Sequential Compression Device 08,20 (07/25/18 16:38) Dvt/Vte Risk - Notifiy Physici 08 (07/25/18 16:38) Admission Order(Inpt,Obs,Sdc) (07/25/18 17:38) Vital Signs: Routine (Order) 08,16,00 (07/25/18 17:38) Sequential Compression Device 08,20 (07/25/18 17:38) Chef & Owner-Inpt Rehab Con (07/25/18 17:38) Rehab Nursing Orders-Ipoc (07/25/18 17:38) Physical Therapy Rehab Orders (07/25/18 17:38) Occupational Therapy Rehab Ord (07/25/18 17:38) Speech Therapy Rehab Orders (07/25/18 17:38) Turn And Reposition Q2HR (07/25/18 17:38) Intake & Output 06,14,22 (07/25/18 17:38) Precautions (Aru) (07/25/18 17:38) Weekly Weight (Lbs) WEEK (07/25/18 17:38) Code/Resuscitation (07/25/18 17:38) Initiate Admission Nursing Pro .admission (07/25/18 17:38) Cbc With Automated Diff (07/26/18 06:00) Comprehensive Metabolic Panel (07/26/18 06:00) Consult Physician (07/25/18 17:42) General/Regular (07/25/18 Dinner) Acetaminophen Tablet (Tylenol Tablet) (07/25/18 17:45) Celecoxib Capsule (Celebrex Capsule) (07/25/18 21:00) Cyclobenzaprine Tablet (Flexeril Tablet) (07/25/18 17:45) Gabapentin Capsule/Tablet (Neurontin Cap (07/25/18 21:00) Enoxaparin Injection (Lovenox Injection) (07/25/18 18:00) Tramadol Tablet (Ultram Tablet) (07/25/18 21:30) Ketorolac Injection (Toradol Injection) (07/25/18 21:30) Manual Differential (07/26/18 06:40) Ketorolac Injection (Toradol Injection) (07/26/18 09:30) Diclofenac 1% Gel (Voltaren 1% Gel) (07/26/18 08:30) Patient Visit (07/25/18 ) Pt Eval Moderate Complexity (07/25/18 ) Patient Visit (07/26/18 ) Exercise Therap, Ea 15 Min (07/26/18 ) Gait Training, Ea 15 Min (07/26/18 ) Functional Activities, Ea 15 (07/26/18 ) Patient Visit (07/26/18 ) Therapeutic, Group (07/26/18 ) Rehab Nursing Orders: Disease Management & Educaiton, DVT Prophylaxis, Fall Prevention, Fluid/Electrolyte/Nutrition Mgmt, Infection Prevention, Medication Management & Education, Management of Risks & Complications, Management of Skin Intergrity, Nutrition Management, Pain Management, Patient/Family Support PT IPOC Problem List: Activity Tolerance, Functional Strength, Safety, Balance, Gait, Transfer Treatment Plan: Continue Plan of Care Bed Mobility, Education, Functional Activity Wilfrido, Functional Strength, Group Therapy, Gait, Safety, Therapeutic Exercise, Transfers Treatment Duration: Aug 15, 2018 Frequency: At least 5 of 7 days/Wk (IRF) Estimated Hrs Per Day: 1.5 hours per day OT IPOC Problems: Decreased Activ Tolerance, Decreased Safety Aware, Decreased UE Strength, Impaired Funct Balance, Impaired I ADL's, Impaired Self-Care Skills OT Treatment, Training and Edu: Yes Plan of Care: ADL Retraining, Functional Mobility, Group Exercise/Act as Ind Treatment Duration: Aug 08, 2018 Frequency: At least 5 of 7 days/Wk (IRF) Estimated Hrs Per Day: 1.[address] IPOC Speech Therapy Treatment Plan: Discontinue ST Treatment Duration: Jul 26, 2018 Frequency: Modified Program (IRF) Estimated Hrs Per Day: Other Chef & Owner/Case Mgmt Chef & Owner/Case Managemen: Discharge Planning, Patient/Family Counseling Dietitian/Test Engine Evaluator Dietitian/Test Engine Evaluator to monitor nutritional status and make changes and/or recommendations as needed and work with speech pathology on dietary upgrades as the occur. Physician IPOC Medical Issues being managed closely and that require the 24 hour availability of a physician: pain management Hx of polysubstance abuse [facility] code 04.130 etiologic DX acute lumbar radiculopathy Medical Issues: DVT Prophylaxis, Falls Precautions, Pain Management Brief Synthesis of Preadmission Screen, Post-Admission Evaluation, and Therapy Evaluations:48 yo male who is unemployed from [place] who twisted ankle with resulting acute exacerbation of chronic Back pain.Evaluated at OSH by Neuro who recommended conservative care.lives with spouse in [place] Medical Prognosis: good Anticipated Length of Stay: 18 Modified Independent for adls and mobility skills with decreased pain Anticipated d/c Destination: Home with spouse JEOVANY COUGHLIN MD Jul 26, 2018 16:06
[2018-07-26] MEDS: ENOXAPARIN 40 MG/0.4 ML (LOVENOX) SYR SC SCH (17:43)
[2018-07-26 18:35] VITALS: BP 116/71
[2018-07-27 06:32] VITALS: BP 119/81
--- NOTE | 2018-07-27 07:55 | Progress Note (SOAP) ---
Subjective Time Seen by a Provider: 07:54 Subjective/Events-last exam Patient still having low back pain. Patient had the flu shot 3 days ago Objective Exam Vital Signs Date Time Temp Pulse Resp B/P (MAP) Pulse Ox O2 Delivery O2 Flow Rate FiO2 07/27/18 06:32 97.4 73 18 119/81 (94) 98 Room Air 07/26/18 18:35 97.2 78 20 116/71 (86) 99 Room Air 07/26/18 08:22 Room Air I & O 07/27/18 07:00 Intake Total 2644 ml Output Total 3750 ml Balance -1106 ml Capillary Refill : General Appearance: No Apparent Distress, WD/WN HEENT: Normal ENT Inspection Neck: Full Range of Motion Respiratory: Lungs Clear, No Accessory Muscle Use, No Respiratory Distress Assessment/Plan Assessment/Plan Assess & Plan/Chief Complaint Lumbar radiculopathy. Elevated liver tests. Hypothyroid. Tobaccoism. . 07/27/18. Lumbar radiculopathy. Elevated liver tests. Hypothyroid. Tobaccoism. Patient having low back pain today Clinical Quality Measures DVT/VTE Risk/Contraindication: Risk Factor Score Per Nursin RFS Level Per Nursing on Admit: 2=Moderate CRISTHIAN DEL TORO DO Jul 27, 2018 07:55
[2018-07-27] MEDS: GABAPENTIN 300 MG (NEURONTIN) CAP PO SCH ×3 (08:18→20:42)
--- NOTE | 2018-07-27 08:55 | Physical Therapy Daily Note ---
PT Daily Note-Current Subjective Patient in bed pre tx, agrees to PT, has 8/10 pain in low back, nurse notified and he got pain meds. Appearance Patient BTB post tx with nurse call, phone, tray, all needs met. Mental Status Patient Orientation: Normal For Age Transfers Functional [place] Measure 0=Not Assessed/NA 4=Minimal Assistance 1=Total Assistance 5=Supervision or Setup 2=Maximal Assistance 6=Modified [place] 3=Moderate Assistance 7=Complete IndependenceIRFPAI Quality Coding Scale 6 Independent with activity with or without an assistive device 5 Patient requires set up or clean up by helper. Patient completes activity by themselves 4 Supervision or touching assist (CGA). [place] provide cues , steadying assist 3 The helper provides less than half the effort to complete the activity 2 The helper provides more than half the effort to complete the activity 1 Dependent. The helper does all the effort to complete an activity 7 Patient refused to complete or attempt activity 9 The patient did not perform the activity before the current illness or injury 88 Not attempted due to Medical conditions or safety concerns Transfers (B, C, W/C) (FIM): 6 Scootin Rollin Supine to/from Sit: 6 Sit to/from Stand: 6 Bed to/from Chair: 6 Gait Training Gait (FIM): 6 Distance: 150'x2 Gait Level of Assist: 6 Gait Assistive Device: FWW Patient has better knee flexion on the right during ambulation, still antalgic but less. Stair Training Stair Training: Handrails/: 2 handrails Stairs (FIM): 2 #of Steps: 4 Stairs: Pattern: Step to Level of Assist: 5 cues for foot placement Exercises Standing: Heel/toe raises, Marching, Mini squats Standing Reps: 15 LAQ alternating for 5 min NuStep Minutes: 15 NuStep Workload: 5 Treatments bed mobility and transfers, ambulation, functional strengthening Assessment Current Status: Good Progress Patient will now be independent in his room (discussed with nurse), was able to perform a full LAQ on the right side. PT Short Term Goals Short Term Goals Time Frame: Aug 01, 2018 Transfers (B,C,W/C) (FIM): 5 Gait (FIM): 5 Gait Distance Comment: 200' Gait Level of Assist: 5 Gait Assistive Device: FWW PT Shelter Goals Shelter Goals PT Pocketbook Maker Goals Time Frame: Aug 15, 2018 Transfers (B,C,W/C) (FIM): 6 Sit to Lying (QC): 6 Lying-Sitting on Side/Bed(QC): 6 Sit to Stand (QC): 6 Rollin Roll Left to Right (QC): 6 Chair/Xwz-jb-Vgnpd Xfer(QC): 6 Car Transfer (QC): 6 Gait (FIM): 6 Distance: 300' Walk 10 feet (QC): 6 Walk 10ft-Uneven Surface(QC): 6 Walk 50ft with 2 Turns (QC): 6 Walk 150 ft (QC): 6 Gait Level of Assist: 6 Gait Assistive Device: FWW Stairs (FIM): 6 # of Steps: 12 1 Step (curb) (QC): 6 4 Steps (QC): 6 12 Steps (QC): 6 Stairs Level Of Assist: 6 PT Plan Problem List Problem List: Activity Tolerance, Functional Strength, Safety, Balance, Gait, Transfer Treatment/Plan Treatment Plan: Continue Plan of Care Treatment Plan: Bed Mobility, Education, Functional Activity Wilfr[place], Functional Strength, Group Therapy, Gait, Safety, Therapeutic Exercise, Transfers Treatment Duration: Aug 15, 2018 Frequency: At least 5 of 7 days/Wk (IRF) Estimated Hrs Per Day: 1.5 hours per day Patient and/or Family Agrees t: Yes Safety Risks/Education Patient Education: Gait Training, Transfer Techniques, Steps, Correct Positioning, Safety Issues Teaching Recipient: Patient Teaching Methods: Demonstration, Discussion Response to Teaching: Reinforcement Needed Time/GCodes Time In: 0800 Time Out: 0900 Total Billed Treatment Time: 60 Total Billed Treatment 1 visit GT 20' EX 40' DIMITRIS CONTRERAS PT Jul 27, 2018 08:55
[2018-07-27] MEDS: KETOROLAC 30 MG/ML VIAL IM PRN ×2 (09:48→19:17)
--- NOTE | 2018-07-27 11:52 | Occupational Ther Daily Note ---
OT Current Status-Daily Note Subjective Pt stated he was looking forward to a shower to get the hot water on his back. Appearance Pt was supine in bed, alert, and ready to work with OT. Mental Status/Objective Patient Orientation: Person, Place, Time, Situation Functional [place] Measure 0=Not Assessed/NA 4=Minimal Assistance 1=Total Assistance 5=Supervision or Setup 2=Maximal Assistance 6=Modified [place] 3=Moderate Assistance 7=Complete [place] ADL-Treatment PT made Pt up ad kuldip for in room. Pt participated in taking a shower with setup , with safety concerns for transfers. Pt able to doff and don all clothing with setup. Pt able to wash all body parts. Functional [place] Measure 0=Not Assessed/NA 4=Minimal Assistance 1=Total Assistance 5=Supervision or Setup 2=Maximal Assistance 6=Modified [place] 3=Moderate Assistance 7=Complete IndependenceIRFPAI Quality Coding Scale 6 Independent with activity with or without an assistive device 5 Patient requires set up or clean up by helper. Patient completes activity by themselves 4 Supervision or touching assist (CGA). [place] provide cues , steadying assist 3 The helper provides less than half the effort to complete the activity 2 The helper provides more than half the effort to complete the activity 1 Dependent. The helper does all the effort to complete an activity 7 Patient refused to complete or attempt activity 9 The patient did not perform the activity before the current illness or injury 88 Not attempted due to Medical conditions or safety concerns Bathing (FIM): 5 (Pt needs setup for bath. Safety concern for impulsive movements. Pt used shower bench, grab bars and hand held shower. ) Upper Body (FIM): 5 (setup) Lower Body Dressing (FIM): 5 (setup) Transfers (B, C, W/C) (FIM): 6 (Pt able to log roll from supine to sit. Pt is MOD I with sit to stand with safety conerns to walker. Pt able to transfer from walker from stand to sit with MOD I. Pt able to use log roll technique for sit to supine. ) Toilet/Commode Transfer (FIM): 6 (Mod I with walker, with safety concerns due to impulsiveness. ) Shower Transfer(FIM): 5 (SBA, grab bars, shower bench, safety concerns) Other Treatment Pt ambulated to therapy gym with SBA. Pt participated in armbike activity for activity tolerance for 10 minutes at 15 [place]. Pt participated in nuts and bolts activity with one pound weights on wrists for activity tolerance for 8 minutes. Pt ambulated to room with SBA. Pt left in room supine in bed. All needs met. Education OT Patient Education: Correct positioning, Modified ADL techniques, Progress toward Goal/Update tx plan, Purpose of tx/functional activities, Reviewed precautions, Rehab process, Transfer techniques, Use of adapted equipment Teaching Recipient: Patient Teaching Methods: Demonstration, Discussion Response to Teaching: Verbalize Understanding, Return Demonstration OT Short Term Goals Short Term Goals Transfers (B,C,W/C) (FIM): 5 1=Demonstrate adherence to instructed precautions during ADL tasks. 2=Patient will verbalize/demonstrate understanding of assistive devices/ modifications for ADL. 3=Patient will improve strength/tolerance for activity to enable patient to perform ADL's. OT Fbi Profiler Goals Fbi Profiler Goals Time Frame: Aug 08, 2018 Eating (FIM): 6 Eating (QC): 6 Groomin Oral Hygiene (QC): 6 Bathing(FIM): 6 Shower/Bathe Self (QC): 6 Upper Body Dressing(FIM): 6 Upper Body Dressing (QC): 6 Lower Body Dressing(FIM): 6 Lower Body Dressing (QC): 6 On/Off Footwear (QC): 6 Toileting(FIM): 6 Toileting Hygiene (QC): 6 Transfers (B,C,W/C) (FIM): 6 Toilet/Commode Transfer(FIM): 6 Toilet/Commode Transfer (QC): 6 Shower Transfer(FIM): 6 Additional Goals: 1-Demonstrate ADL Tasks, 2-Verbalize Understanding, 3- ImproveStrength/[place] 1=Demonstrate adherence to instructed precautions during ADL tasks. 2=Patient will verbalize/demonstrate understanding of assistive devices/ modifications for ADL. 3=Patient will improve strength/tolerance for activity to enable patient to perform ADL's. OT Education/Plan Problem List/Assessment Assessment: Decreased Activ Tolerance, Decreased Safety Aware, Impaired Self- Care Skills Discharge Recommendations Plan/Recommendations: Continue POC Treatment Plan/Plan of Care Treatment,Training & Education: Yes Patient would benefit from OT for education, treatment and training to promote independence in ADL's, mobility, safety and/or upper extremity function for ADL' s. Plan of Care: ADL Retraining, Functional Mobility, Group Exercise/Act as Ind Treatment Duration: Aug 08, 2018 Frequency: At least 5 of 7 days/Wk (IRF) Estimated Hrs Per Day: 1.5 hours per day Agreement: Yes Rehab Potential: Good Time/GCodes Start Time: 10:00 Stop Time: 11:00 Total Time Billed (hr/min): 60 Billed Treatment Time 1, ADL x 30 min, EX x 30 min CHRISTAL BADILLO OT Jul 27, 2018 11:52
--- NOTE | 2018-07-27 12:06 | PM & R (SOAP) Progress Note ---
Subjective This was a face to face visit with the patient. Date Seen by Provider: Jul 27, 2018 Time Seen by Provider: 09:30 Subjective/Events-last exam Patient was seen in his room earlier today Patient Modified Independent for transfers Pain decreasing Review of Systems Musculoskeletal: back pain Objective Physician Exam Last Set of Vital Signs Vital Signs Date Time Temp Pulse Resp B/P (MAP) Pulse Ox O2 Delivery O2 Flow Rate FiO2 07/27/18 08:00 Room Air 07/27/18 06:32 97.4 73 18 119/81 (94) 98 Capillary Refill : I&O Intake and Output 07/27/18 00:00 Intake Total 2375 ml Output Total 3050 ml Balance -675 ml Intake Oral 2375 ml Output Urine Total 3050 ml # Bowel Movements 1 General: Alert, Oriented X3, Cooperative, No Acute Distress, Other (c/o rt leg weakness and pain) HEENT: Atraumatic, PERRLA, EOMI, Mucous Memb Moist/[place] Neck: Supple, No JVD Lungs: Clear to Auscultation Heart: Regular Rate Abdomen: Normal Bowel Sounds, Soft, No Tenderness Extremities: No Edema Skin: No Rashes, No Breakdown, No Significant Lesion Neuro: Other (and weakness RLE 1to 2/5 on the left 4/5) Psych/Mental Status: Mental Status NL Results Lab Data Laboratory Tests 07/26/18 06:40: White Blood Count 10.8, Red Blood Count 4.91, Hemoglobin 13.8, Hematocrit 41, Mean Corpuscular Volume 84, Mean Corpuscular Hemoglobin 28, Mean Corpuscular Hemoglobin Concent 34, Red Cell Distribution Width 14.2, Platelet Count 269, Mean Platelet Volume 10.4, Neutrophils (%) (Auto) 71, Lymphocytes (%) (Auto) 14 , Monocytes (%) (Auto) 10, Eosinophils (%) (Auto) 4, Basophils (%) (Auto) 1, Neutrophils # (Auto) 7.7, Lymphocytes # (Auto) 1.5, Monocytes # (Auto) 1.1H, Eosinophils # (Auto) 0.5H, Basophils # (Auto) 0.1, Neutrophils % (Manual) 64, Lymphocytes % (Manual) 16, Monocytes % (Manual) 5, Eosinophils % (Manual) 5, Basophils % (Manual) 0, Myelocytes % 6, Band Neutrophils 4, Blood Morphology Comment NORMAL, Sodium Level 140, Potassium Level 4.2, Chloride Level 105, Carbon Dioxide Level 27, Anion Gap 8, Blood Urea Nitrogen 14, Creatinine 0.78, Estimat Glomerular Filtration Rate > 60, BUN/Creatinine Ratio 18, Glucose Level 88, Calcium Level 9.4, Corrected Calcium 9.6, Total Bilirubin 0.4, Aspartate Amino Transf (AST/SGOT) 39H, Alanine Aminotransferase (ALT/SGPT) 76H, Alkaline Phosphatase 124, Total Protein 6.8, Albumin 3.7 Assessment/Plan Assessment and Plan 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
--- NOTE | 2018-07-27 12:52 | Physical Therapy Daily Note ---
PT Daily Note-Current Subjective Pt reports no change from earlier session Pain Comment: Pt reports pain level 8.5/10 in LB. States no change by end of session Appearance Pt supine in bed upon arrival. Mild grimacing with movements Transfers Functional [place] Measure 0=Not Assessed/NA 4=Minimal Assistance 1=Total Assistance 5=Supervision or Setup 2=Maximal Assistance 6=Modified [place] 3=Moderate Assistance 7=Complete IndependenceIRFPAI Quality Coding Scale 6 Independent with activity with or without an assistive device 5 Patient requires set up or clean up by helper. Patient completes activity by themselves 4 Supervision or touching assist (CGA). [place] provide cues , steadying assist 3 The helper provides less than half the effort to complete the activity 2 The helper provides more than half the effort to complete the activity 1 Dependent. The helper does all the effort to complete an activity 7 Patient refused to complete or attempt activity 9 The patient did not perform the activity before the current illness or injury 88 Not attempted due to Medical conditions or safety concerns Transfers (B, C, W/C) (FIM): 6 Scootin Rollin Supine to/from Sit: 6 Sit to/from Stand: 6 Slow and cautious movements during transitions. Min verb inst for hand placement Weight Bearing Right Lower Extremity: Right Full Weight Bearing Left Lower Extremity: Left Full Weight Bearing Gait Training Does the Patient Walk?: Yes Gait (FIM): 6 Distance (FIM): 3=150 ft Distance: 150' x2 Gait Level of Assist: 6 Gait Persons Needed: 1 Gait Assistive Device: FWW Verb inst for posture and decreasing wt through UE's on walker Exercises Standing: Hip Abduction, Heel/toe raises, Marching, Mini squats Standing Reps: 10 encouraging decreased UE support and improving posture with head up during standing exercises in parallel bars NuStep Minutes: 10 NuStep Workload: 5 Assessment Current Status: Good Progress Continues to progress to achieve goals PT Short Term Goals Short Term Goals Time Frame: Aug 01, 2018 Transfers (B,C,W/C) (FIM): 5 Gait (FIM): 5 Gait Distance Comment: 200' Gait Level of Assist: 5 Gait Assistive Device: FWW PT Fdc Goals Fdc Goals PT Fdc Goals Time Frame: Aug 15, 2018 Transfers (B,C,W/C) (FIM): 6 Sit to Lying (QC): 6 Lying-Sitting on Side/Bed(QC): 6 Sit to Stand (QC): 6 Rollin Roll Left to Right (QC): 6 Chair/Kcv-ka-Krpby Xfer(QC): 6 Car Transfer (QC): 6 Gait (FIM): 6 Distance: 300' Walk 10 feet (QC): 6 Walk 10ft-Uneven Surface(QC): 6 Walk 50ft with 2 Turns (QC): 6 Walk 150 ft (QC): 6 Gait Level of Assist: 6 Gait Assistive Device: FWW Stairs (FIM): 6 # of Steps: 12 1 Step (curb) (QC): 6 4 Steps (QC): 6 12 Steps (QC): 6 Stairs Level Of Assist: 6 PT Plan Problem List Problem List: Activity Tolerance, Functional Strength, Safety, Balance, Gait Treatment/Plan Treatment Plan: Continue Plan of Care Treatment Plan: Bed Mobility, Education, Functional Activity [place], Functional Strength, Group Therapy, Gait, Safety, Therapeutic Exercise, Transfers Treatment Duration: Aug 15, 2018 Frequency: At least 5 of 7 days/Wk (IRF) Estimated Hrs Per Day: 1.5 hours per day Patient and/or Family Agrees t: Yes Safety Risks/Education Patient Education: Gait Training, Transfer Techniques, Safety Issues Teaching Recipient: Patient Teaching Methods: Demonstration, Discussion Response to Teaching: Verbalize Understanding, Return Demonstration Included inst to perform turns with walker less quickly and decrease twisting back Discharge Recommendations Plan Cont per POC to achieve goals Time/GCodes Time In: 1200 Time Out: 1225 Total Billed Treatment Time: 25 Total Billed Treatment 1 visit 10 Gait 15 ther ex SOHAIL SALAZAR PT Jul 27, 2018 12:52
[2018-07-27] MEDS ORDERED: NICOTINE 21 MG (NICODERM) PATCH ONE (13:03)
[2018-07-27] MEDS: NICOTINE 21 MG (NICODERM) PATCH TD SCH (13:04)
--- NOTE | 2018-07-27 15:07 | Therapy Group Daily Note ---
Therapy Daily Group Note Patient Education Topic Fall Prevention, Other List Below (Flu prevention and proper handwashing, gait and ADs, ) Exercises LE Seated Exercise, UE Exercise Other/Notes Pt. participated in group PT OT session this date. Pt. ambulated with CGA to min assist with FWW to and from. Pts. introduced themselves and were social and enjoyed the group. Handwashing demonstration as well as each pt. assisted to the sink for opportunity to wash hands. Flu prevention and vaccine etc was discussed. Gait assistive devices were demonstrated and explained. Pt. to room after group with wu at hand, needs met Start Time: 13:00 Stop Time: 14:30 Total Billed Treatment Time: 90 Total Billed Treatment 1,GRP BUDDY FUENTES PHYSICAL CHEMIST Jul 27, 2018 15:07
[2018-07-27 17:18] VITALS: BP 116/74
[2018-07-27] MEDS: ENOXAPARIN 40 MG/0.4 ML (LOVENOX) SYR SC SCH (17:47)
[2018-07-27] MEDS: DICLOFENAC 1% GEL 100 GM (VOLTAREN) TUBE TOP PRN (17:56)
[2018-07-27] MEDS: CYCLOBENZAPRINE 10 MG (FLEXERIL) TAB PO PRN (20:42)
[2018-07-27] MEDS: AUGMENTIN 500 MG TAB (AMOXICILLIN/CLAVULANATE) PO SCH (21:42)
[2018-07-28 06:00] VITALS: BP 149/80
[2018-07-28] MEDS: KETOROLAC 30 MG/ML VIAL IM PRN ×2 (06:10→22:06)
[2018-07-28 06:33] LABS: ALBUMIN 3.8 GM/DL (3.2-4.5); BILIRUBIN,DIRECT 0.2 MG/DL (0.0-0.3); BILIRUBIN,INDIRECT 0.1 MG/DL; BILIRUBIN,TOTAL 0.3 MG/DL (0.1-1.0)
[2018-07-28] MEDS: NICOTINE 21 MG (NICODERM) PATCH TD SCH (07:41)
[2018-07-28] MEDS: GABAPENTIN 300 MG (NEURONTIN) CAP PO SCH ×3 (07:41→20:21)
[2018-07-28] MEDS: AUGMENTIN 500 MG TAB (AMOXICILLIN/CLAVULANATE) PO SCH ×3 (07:41→20:21)
--- NOTE | 2018-07-28 09:13 | Occupational Ther Daily Note ---
OT Current Status-Daily Note Subjective Pt sleeping in bed, difficult to wake, called name multiple times. Pt c/o pain in jaw and stated that it kept him awake most of the night. Pt agrees to therapy. Mental Status/Objective Patient Orientation: Person, Place, Time, Situation Functional [place] Measure 0=Not Assessed/NA 4=Minimal Assistance 1=Total Assistance 5=Supervision or Setup 2=Maximal Assistance 6=Modified [place] 3=Moderate Assistance 7=Complete [place] ADL-Treatment Functional [place] Measure 0=Not Assessed/NA 4=Minimal Assistance 1=Total Assistance 5=Supervision or Setup 2=Maximal Assistance 6=Modified [place] 3=Moderate Assistance 7=Complete IndependenceIRFPAI Quality Coding Scale 6 Independent with activity with or without an assistive device 5 Patient requires set up or clean up by helper. Patient completes activity by themselves 4 Supervision or touching assist (CGA). [place] provide cues , steadying assist 3 The helper provides less than half the effort to complete the activity 2 The helper provides more than half the effort to complete the activity 1 Dependent. The helper does all the effort to complete an activity 7 Patient refused to complete or attempt activity 9 The patient did not perform the activity before the current illness or injury 88 Not attempted due to Medical conditions or safety concerns Other Treatment Pt ambulated to [facility] using FWW with SBA. Resistive clothes pins completed with each hand. [place] gale exercises with 3# wt attached to increase strength of UE's and increase activity tolerance for daily functional tasks. After therapy, pt lying in bed with call light/phone in reach. All needs met in room. OT Short Term Goals Short Term Goals Transfers (B,C,W/C) (FIM): 5 1=Demonstrate adherence to instructed precautions during ADL tasks. 2=Patient will verbalize/demonstrate understanding of assistive devices/ modifications for ADL. 3=Patient will improve strength/tolerance for activity to enable patient to perform ADL's. OT Senior Care Goals Catalog Librarian Goals Time Frame: Aug 08, 2018 Eating (FIM): 6 Eating (QC): 6 Groomin Oral Hygiene (QC): 6 Bathing(FIM): 6 Shower/Bathe Self (QC): 6 Upper Body Dressing(FIM): 6 Upper Body Dressing (QC): 6 Lower Body Dressing(FIM): 6 Lower Body Dressing (QC): 6 On/Off Footwear (QC): 6 Toileting(FIM): 6 Toileting Hygiene (QC): 6 Transfers (B,C,W/C) (FIM): 6 Toilet/Commode Transfer(FIM): 6 Toilet/Commode Transfer (QC): 6 Shower Transfer(FIM): 6 Additional Goals: 1-Demonstrate ADL Tasks, 2-Verbalize Understanding, 3- ImproveStrength/[place] 1=Demonstrate adherence to instructed precautions during ADL tasks. 2=Patient will verbalize/demonstrate understanding of assistive devices/ modifications for ADL. 3=Patient will improve strength/tolerance for activity to enable patient to perform ADL's. OT Education/Plan Discharge Recommendations Plan/Recommendations: Continue POC Treatment Plan/Plan of Care Patient would benefit from OT for education, treatment and training to promote independence in ADL's, mobility, safety and/or upper extremity function for ADL' s. Plan of Care: ADL Retraining, Functional Mobility, Group Exercise/Act as Ind Treatment Duration: Aug 08, 2018 Frequency: At least 5 of 7 days/Wk (IRF) Estimated Hrs Per Day: 1.5 hours per day Agreement: Yes Rehab Potential: Good Time/GCodes Start Time: 08:50 Stop Time: 09:10 Total Time Billed (hr/min): 20 Billed Treatment Time 1 visit-EX 1 (20 min) MARLO SCHULTE Jul 28, 2018 09:13
--- NOTE | 2018-07-28 11:05 | Physical Therapy Daily Note ---
PT Daily Note-Current Subjective Pt. states he really doesnt feel like therapy as he has not slept all night b/c he has an absessed tooth and has started an ABX. Agrees to LE exercise in bed Pain Numeric Pain Scale: 5-Moderate Pain Location: Right Location Body Site: Cheek (mouth/tooth) Pain Description: Ache Mental Status Patient Orientation: Normal For Age Transfers Functional [place] Measure 0=Not Assessed/NA 4=Minimal Assistance 1=Total Assistance 5=Supervision or Setup 2=Maximal Assistance 6=Modified [place] 3=Moderate Assistance 7=Complete IndependenceIRFPAI Quality Coding Scale 6 Independent with activity with or without an assistive device 5 Patient requires set up or clean up by helper. Patient completes activity by themselves 4 Supervision or touching assist (CGA). [place] provide cues , steadying assist 3 The helper provides less than half the effort to complete the activity 2 The helper provides more than half the effort to complete the activity 1 Dependent. The helper does all the effort to complete an activity 7 Patient refused to complete or attempt activity 9 The patient did not perform the activity before the current illness or injury 88 Not attempted due to Medical conditions or safety concerns Rollin Supine to/from Sit: 6 Weight Bearing Right Lower Extremity: Right Full Weight Bearing Left Lower Extremity: Left Full Weight Bearing Exercises Supine Ex: Bridging, Ankle pumps, Quad Set, Rolling, Glut sets, Heel Slides, Short Arc Quads, Scooting, Straight leg raise, Hip abd/add Supine Reps: 25 Assessment Current Status: Fair Progress limited by mouth pain today PT Short Term Goals Short Term Goals Time Frame: Aug 01, 2018 Transfers (B,C,W/C) (FIM): 5 Gait (FIM): 5 Gait Distance Comment: 200' Gait Level of Assist: 5 Gait Assistive Device: FWW PT Half-Way Goals Animator Goals PT Half-Way Goals Time Frame: Aug 15, 2018 Transfers (B,C,W/C) (FIM): 6 Sit to Lying (QC): 6 Lying-Sitting on Side/Bed(QC): 6 Sit to Stand (QC): 6 Rollin Roll Left to Right (QC): 6 Chair/Gzu-fo-Hnobw Xfer(QC): 6 Car Transfer (QC): 6 Gait (FIM): 6 Distance: 300' Walk 10 feet (QC): 6 Walk 10ft-Uneven Surface(QC): 6 Walk 50ft with 2 Turns (QC): 6 Walk 150 ft (QC): 6 Gait Level of Assist: 6 Gait Assistive Device: FWW Stairs (FIM): 6 # of Steps: 12 1 Step (curb) (QC): 6 4 Steps (QC): 6 12 Steps (QC): 6 Stairs Level Of Assist: 6 PT Plan Treatment/Plan Treatment Plan: Continue Plan of Care Treatment Plan: Bed Mobility, Education, Functional Activity [place], Functional Strength, Group Therapy, Gait, Safety, Therapeutic Exercise, Transfers Treatment Duration: Aug 15, 2018 Frequency: At least 5 of 7 days/Wk (IRF) Estimated Hrs Per Day: 1.5 hours per day Patient and/or Family Agrees t: Yes Safety Risks/Education Patient Education: Correct Positioning, Disease Process Teaching Recipient: Patient Teaching Methods: Discussion Response to Teaching: Verbalize Understanding, Return Demonstration, Reinforcement Needed Time/GCodes Time In: 955 Time Out: 1010 Total Billed Treatment Time: 15 Total Billed Treatment 1,EX15m G Codes Necessary: BUDDY Rudd COMPUTER COMPOSITOR Jul 28, 2018 11:05
[2018-07-28] MEDS: CYCLOBENZAPRINE 10 MG (FLEXERIL) TAB PO PRN ×2 (13:35→20:21)
[2018-07-28] MEDS: DICLOFENAC 1% GEL 100 GM (VOLTAREN) TUBE TOP PRN (13:36)
[2018-07-28] MEDS: ENOXAPARIN 40 MG/0.4 ML (LOVENOX) SYR SC SCH (17:03)
[2018-07-28 18:00] VITALS: BP 123/80
[2018-07-29 05:15] VITALS: BP 122/83
[2018-07-29] MEDS: AUGMENTIN 500 MG TAB (AMOXICILLIN/CLAVULANATE) PO SCH ×3 (08:48→20:34)
[2018-07-29] MEDS: NICOTINE 21 MG (NICODERM) PATCH TD SCH (08:49)
[2018-07-29] MEDS: GABAPENTIN 300 MG (NEURONTIN) CAP PO SCH ×3 (08:49→20:34)
[2018-07-29] MEDS: NICOTINE PATCH REMOVAL TP SCH (08:49)
[2018-07-29] MEDS: KETOROLAC 30 MG/ML VIAL IM PRN (12:44)
[2018-07-29] MEDS: CYCLOBENZAPRINE 10 MG (FLEXERIL) TAB PO PRN ×2 (15:31→23:10)
[2018-07-29] MEDS: ENOXAPARIN 40 MG/0.4 ML (LOVENOX) SYR SC SCH (17:32)
[2018-07-29 17:45] VITALS: BP 126/75
--- NOTE | 2018-07-29 21:25 | PM & R (SOAP) Progress Note ---
Subjective This was a face to face visit with the patient. Date Seen by Provider: Jul 29, 2018 Time Seen by Provider: 21:15 Subjective/Events-last exam Patient was seen in his room this evening Patient Modified Independent for transfers Patient c/o dental pain over this weekend and indicates that he was on course of antibiotic for this but didnt complete course Date Identified: Jul 29, 2018 Time Identified: 21:00 Medication Intervention: Augmentin ordered for dental pain Review of Systems HEENT: Other (denatl pain) Musculoskeletal: back pain Objective Physician Exam Last Set of Vital Signs Vital Signs Date Time Temp Pulse Resp B/P (MAP) Pulse Ox O2 Delivery O2 Flow Rate FiO2 07/29/18 17:45 97.1 92 18 126/75 (92) 98 Room Air Capillary Refill : NONE I&O Intake and Output 07/29/18 00:00 Intake Total 1886 ml Balance 1886 ml Intake Oral 1886 ml # Voids 5 # Bowel Movements 1 General: Alert, Oriented X3, Cooperative, No Acute Distress, Other (c/o rt leg weakness and pain) HEENT: Atraumatic, PERRLA, EOMI, Mucous Memb Moist/[place] Neck: Supple, No JVD Lungs: Clear to Auscultation Heart: Regular Rate Abdomen: Normal Bowel Sounds, Soft, No Tenderness Extremities: No Edema Skin: No Rashes, No Breakdown, No Significant Lesion Neuro: Other (and weakness RLE 1to 2/5 on the left 4/5) Psych/Mental Status: Mental Status NL Results Lab Data Laboratory Tests 07/28/18 06:00: Total Bilirubin 0.3, Direct Bilirubin 0.2, Indirect Bilirubin 0.1, Aspartate Amino Transf (AST/SGOT) 37H, Alanine Aminotransferase (ALT/SGPT) 73H, Alkaline Phosphatase 119, Total Protein 7.0, Albumin 3.8 Assessment/Plan Assessment and Plan 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
[2018-07-30 05:10] VITALS: BP 129/88
[2018-07-30] MEDS: DICLOFENAC 1% GEL 100 GM (VOLTAREN) TUBE TOP PRN ×3 (07:32→23:15)
[2018-07-30] MEDS: GABAPENTIN 300 MG (NEURONTIN) CAP PO SCH ×3 (08:02→20:29)
[2018-07-30] MEDS: NICOTINE 21 MG (NICODERM) PATCH TD SCH (08:02)
[2018-07-30] MEDS: AUGMENTIN 500 MG TAB (AMOXICILLIN/CLAVULANATE) PO SCH ×3 (08:02→20:29)
--- NOTE | 2018-07-30 08:27 | Progress Note (SOAP) ---
Subjective Time Seen by a Provider: 08:24 Subjective/Events-last exam Patient complains of pain in the left shoulder. Lumbar radiculopathy. Patient doing the bike this morning stationary Objective Exam Vital Signs Date Time Temp Pulse Resp B/P (MAP) Pulse Ox O2 Delivery O2 Flow Rate FiO2 07/30/18 05:10 98.7 82 18 129/88 (102) 96 Room Air 07/29/18 21:00 Room Air 07/29/18 17:45 97.1 92 18 126/75 (92) 98 Room Air I & O 07/30/18 07:00 Intake Total 2052 ml Output Total 450 ml Balance 1602 ml Capillary Refill : NONE General Appearance: No Apparent Distress, WD/WN HEENT: Normal ENT Inspection Neck: Normal Inspection Respiratory: Lungs Clear, No Accessory Muscle Use, No Respiratory Distress Cardiovascular: Regular Rate, Rhythm, No Murmur Gastrointestinal: non tender, soft Assessment/Plan Assessment/Plan Assess & Plan/Chief Complaint Lumbar radiculopathy. Elevated liver tests. Hypothyroid. Tobaccoism. . 07/27/18. Lumbar radiculopathy. Elevated liver tests. Hypothyroid. Tobaccoism. Patient having low back pain today. . 07/30/18. Lumbar radiculopathy. Elevated liver tests. Hypothyroid. Tobaccoism. Patient had pain in the left shoulder in a certain point Clinical Quality Measures DVT/VTE Risk/Contraindication: Risk Factor Score Per Nursin RFS Level Per Nursing on Admit: 2=Moderate CRISTHIAN DEL TORO DO Jul 30, 2018 08:27
--- NOTE | 2018-07-30 08:52 | Physical Therapy Daily Note ---
PT Daily Note-Current Subjective Patient in bed pre tx, reluctantly agrees to PT, has pain of 10/10 in left shoulder. Apparently he almost fell in the bathroom and hurt his shoulder and is no longer independent in his room. Appearance Patient in bed post tx with nurse call, phone, tray, bed alarm on. Mental Status Patient Orientation: Person, Place, Situation Transfers Functional [place] Measure 0=Not Assessed/NA 4=Minimal Assistance 1=Total Assistance 5=Supervision or Setup 2=Maximal Assistance 6=Modified [place] 3=Moderate Assistance 7=Complete IndependenceIRFPAI Quality Coding Scale 6 Independent with activity with or without an assistive device 5 Patient requires set up or clean up by helper. Patient completes activity by themselves 4 Supervision or touching assist (CGA). [place] provide cues , steadying assist 3 The helper provides less than half the effort to complete the activity 2 The helper provides more than half the effort to complete the activity 1 Dependent. The helper does all the effort to complete an activity 7 Patient refused to complete or attempt activity 9 The patient did not perform the activity before the current illness or injury 88 Not attempted due to Medical conditions or safety concerns Transfers (B, C, W/C) (FIM): 6 Scootin Rollin Supine to/from Sit: 6 Sit to/from Stand: 6 Bed to/from Chair: 6 Weight Bearing Right Lower Extremity: Right Full Weight Bearing Left Lower Extremity: Left Full Weight Bearing Gait Training Gait (FIM): 6 Distance: 150'x2 Gait Level of Assist: 6 Gait Assistive Device: FWW Patient would not use his left arm on the walker, only used the right arm but he was able to push the walker without issue. Patient has much better steps with his left leg, did not ambulate with a stiff leg. Exercises Standing: Hip Abduction, Hamstring curls, Heel/toe raises, Marching, Mini squats Standing Reps: 15 NuStep Minutes: 15 NuStep Workload: 5 (did not use left arm) Treatments bed mobility and transfers, ambulation, functional strengthening Assessment Current Status: Fair Progress better stepping with left leg, patient self-limits exercises with the left leg, patient needed extra rest time due to pain PT Short Term Goals Short Term Goals Time Frame: Aug 01, 2018 Transfers (B,C,W/C) (FIM): 5 Gait (FIM): 5 Gait Distance Comment: 200' Gait Level of Assist: 5 Gait Assistive Device: FWW PT Snf Goals Revising Clerk Goals PT Revising Clerk Goals Time Frame: Aug 15, 2018 Transfers (B,C,W/C) (FIM): 6 Sit to Lying (QC): 6 Lying-Sitting on Side/Bed(QC): 6 Sit to Stand (QC): 6 Rollin Roll Left to Right (QC): 6 Chair/Jia-jy-Ilhgr Xfer(QC): 6 Car Transfer (QC): 6 Gait (FIM): 6 Distance: 300' Walk 10 feet (QC): 6 Walk 10ft-Uneven Surface(QC): 6 Walk 50ft with 2 Turns (QC): 6 Walk 150 ft (QC): 6 Gait Level of Assist: 6 Gait Assistive Device: FWW Stairs (FIM): 6 # of Steps: 12 1 Step (curb) (QC): 6 4 Steps (QC): 6 12 Steps (QC): 6 Stairs Level Of Assist: 6 PT Plan Problem List Problem List: Activity Tolerance, Functional Strength, Safety, Balance, Gait, Transfer, Bed Mobility, ROM Treatment/Plan Treatment Plan: Continue Plan of Care Treatment Plan: Bed Mobility, Education, Functional Activity Wilfrido, Functional Strength, Group Therapy, Gait, Safety, Therapeutic Exercise, Transfers Treatment Duration: Aug 15, 2018 Frequency: At least 5 of 7 days/Wk (IRF) Estimated Hrs Per Day: 1.5 hours per day Patient and/or Family Agrees t: Yes Safety Risks/Education Patient Education: Gait Training, Transfer Techniques, Correct Positioning, Safety Issues Teaching Recipient: Patient Teaching Methods: Demonstration, Discussion Response to Teaching: Reinforcement Needed Time/GCodes Time In: 0800 Time Out: 0900 Total Billed Treatment Time: 60 Total Billed Treatment 1 visit GT 15' EX 30' FA 15' DIMITRIS CONTRERAS PT Jul 30, 2018 08:52
[2018-07-30] MEDS: NICOTINE PATCH REMOVAL TP SCH (09:53)
--- NOTE | 2018-07-30 12:30 | PM & R (SOAP) Progress Note ---
Subjective This was a face to face visit with the patient. Date Seen by Provider: Jul 30, 2018 Time Seen by Provider: 08:30 Subjective/Events-last exam Patient was seen in his room this AM Patient c/o left shoulder pain after catching himself in bathroom Patient has been Modified Independent in room for transfers over the weekend.Patient with tender left shoulder with pain reported He reports remote hx of prior left shoulder surgery Will check XRAY see orders Review of Systems Musculoskeletal: shoulder pain Objective Physician Exam Last Set of Vital Signs Vital Signs Date Time Temp Pulse Resp B/P (MAP) Pulse Ox O2 Delivery O2 Flow Rate FiO2 07/30/18 08:34 Room Air 07/30/18 05:10 98.7 82 18 129/88 (102) 96 Capillary Refill : NONE I&O Intake and Output 07/30/18 00:00 Intake Total 1712 ml Output Total 1050 ml Balance 662 ml Intake Oral 1712 ml Output Urine Total 1050 ml # Voids 4 # Bowel Movements 2 General: Alert, Oriented X3, Cooperative, No Acute Distress, Other (c/o rt leg weakness and pain) HEENT: Atraumatic, PERRLA, EOMI, Mucous Memb Moist/[place] Neck: Supple, No JVD Lungs: Clear to Auscultation Heart: Regular Rate Abdomen: Normal Bowel Sounds, Soft, No Tenderness Extremities: No Edema, Other (Left shoulder with diffuse tenderness with increased pain and guarding with movement) Skin: No Rashes, No Breakdown, No Significant Lesion Neuro: Other (and weakness RLE 1to 2/5 on the left 4/5) Psych/Mental Status: Mental Status NL Results Lab Data Laboratory Tests 07/28/18 06:00: Total Bilirubin 0.3, Direct Bilirubin 0.2, Indirect Bilirubin 0.1, Aspartate Amino Transf (AST/SGOT) 37H, Alanine Aminotransferase (ALT/SGPT) 73H, Alkaline Phosphatase 119, Total Protein 7.0, Albumin 3.8 Assessment/Plan Assessment and Plan 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
--- NOTE | 2018-07-30 13:25 | Physical Therapy Daily Note ---
PT Daily Note-Current Subjective Agrees to PT. Reports his left shoulder is bothering him, just returned from [place]. Transfers Functional [place] Measure 0=Not Assessed/NA 4=Minimal Assistance 1=Total Assistance 5=Supervision or Setup 2=Maximal Assistance 6=Modified [place] 3=Moderate Assistance 7=Complete IndependenceIRFPAI Quality Coding Scale 6 Independent with activity with or without an assistive device 5 Patient requires set up or clean up by helper. Patient completes activity by themselves 4 Supervision or touching assist (CGA). [place] provide cues , steadying assist 3 The helper provides less than half the effort to complete the activity 2 The helper provides more than half the effort to complete the activity 1 Dependent. The helper does all the effort to complete an activity 7 Patient refused to complete or attempt activity 9 The patient did not perform the activity before the current illness or injury 88 Not attempted due to Medical conditions or safety concerns Transfers (B, C, W/C) (FIM): 7 Performed all transfers indep with a safely. Weight Bearing Right Lower Extremity: Right Full Weight Bearing Left Lower Extremity: Left Full Weight Bearing Gait Training Does the Patient Walk?: Yes Gait (FIM): 5 Distance (FIM): 3=150 ft Gait Assistive Device: FWW Pt walked 250 ft x 4 reps with FWW, but does not hold onto the walker with his left UE. Safe and steady gait. Stair Training Stair Training: Handrails/: 1 handrail Stairs (FIM): 5 #of Steps: 12 Stairs: Pattern: Step to up/down 12 steps with SBA and cues for sequencing and safety. Assessment Current Status: Good Progress No safety concerns during this treatment session. Safe with gait and transfers ; SBA on stairs. PT Short Term Goals Short Term Goals Time Frame: Aug 01, 2018 Transfers (B,C,W/C) (FIM): 5 (met) Gait (FIM): 5 (met) Gait Distance Comment: 200' Gait Level of Assist: 5 Gait Assistive Device: FWW PT Transfer Station Attendant Goals Jail Goals PT Jail Goals Time Frame: Aug 15, 2018 Transfers (B,C,W/C) (FIM): 6 Sit to Lying (QC): 6 Lying-Sitting on Side/Bed(QC): 6 Sit to Stand (QC): 6 Rollin Roll Left to Right (QC): 6 Chair/Gsi-zd-Gmdkz Xfer(QC): 6 Car Transfer (QC): 6 Gait (FIM): 6 Distance: 300' Walk 10 feet (QC): 6 Walk 10ft-Uneven Surface(QC): 6 Walk 50ft with 2 Turns (QC): 6 Walk 150 ft (QC): 6 Gait Level of Assist: 6 Gait Assistive Device: FWW Stairs (FIM): 6 # of Steps: 12 1 Step (curb) (QC): 6 4 Steps (QC): 6 12 Steps (QC): 6 Stairs Level Of Assist: 6 PT Plan Problem List Problem List: Activity Tolerance, Functional Strength, Safety, Balance, Gait, Transfer Treatment/Plan Treatment Plan: Continue Plan of Care Treatment Plan: Bed Mobility, Education, Functional Activity [place], Functional Strength, Group Therapy, Gait, Safety, Therapeutic Exercise, Transfers Treatment Duration: Aug 15, 2018 Frequency: At least 5 of 7 days/Wk (IRF) Estimated Hrs Per Day: 1.5 hours per day Patient and/or Family Agrees t: Yes Safety Risks/Education Patient Education: Steps, Safety Issues Teaching Recipient: Patient Teaching Methods: Demonstration, Discussion Response to Teaching: Return Demonstration Time/GCodes Time In: 1250 Time Out: 1320 Total Billed Treatment Time: 30 Total Billed Treatment visit FA 30 MARLO BAKER PT Jul 30, 2018 13:25
--- NOTE | 2018-07-30 14:15 | Occupational Ther Daily Note ---
OT Current Status-Daily Note Subjective Pt states that he hurt his L shoulder by reaching quickly for the grab bar in bathroom. States that he is having difficulty using it. Pt states that he thinks he may have "torn something." Reports pain in shoulder at about a "9 or 10". Pt reports pain in back at about a "7". Nursing notified. Appearance Pt laying sideline in bed with ice pack on shoulder. Pt willing to work with OT to take a shower even though he is hurting. Mental Status/Objective Patient Orientation: Person, Place, Time, Situation Functional [place] Measure 0=Not Assessed/NA 4=Minimal Assistance 1=Total Assistance 5=Supervision or Setup 2=Maximal Assistance 6=Modified [place] 3=Moderate Assistance 7=Complete [place] ADL-Treatment Functional [place] Measure 0=Not Assessed/NA 4=Minimal Assistance 1=Total Assistance 5=Supervision or Setup 2=Maximal Assistance 6=Modified [place] 3=Moderate Assistance 7=Complete IndependenceIRFPAI Quality Coding Scale 6 Independent with activity with or without an assistive device 5 Patient requires set up or clean up by helper. Patient completes activity by themselves 4 Supervision or touching assist (CGA). [place] provide cues , steadying assist 3 The helper provides less than half the effort to complete the activity 2 The helper provides more than half the effort to complete the activity 1 Dependent. The helper does all the effort to complete an activity 7 Patient refused to complete or attempt activity 9 The patient did not perform the activity before the current illness or injury 88 Not attempted due to Medical conditions or safety concerns Bathing (FIM): 5 (Pt able to shower all body parts with setup. ) Shower/Bathe Self (QC): 5 Upper Body (FIM): 5 (Pt able to don and doff shirt with setup. Education given to don and doff L shoulder first due to pain. ) Upper Body Dressing (QC): 5 Lower Body Dressing (FIM): 5 (Pt able to don and doff pants and slipper socks while sitting with setup. ) Lower Body Dressing (QC): 5 On/Off Footwear (QC): 5 Transfers (B, C, W/C) (FIM): 4 (OT provided CGA during transfer from sit in bed to stand at walker due to Pt having stated he felt his back "seized up" and caused him to injure his shoulder. ) Other Treatment Pt ambulated to therapy gym with CGA. Pt participated in arm arc activity with right UE only to increase overall endurance and to focus on not bending or twisting during activity. Tolerated this treatment well. Education OT Patient Education: Correct positioning, Energy conservation, Modified ADL techniques, Progress toward Goal/Update tx plan, Purpose of tx/functional activities, Reviewed precautions, Rehab process, Transfer techniques Teaching Recipient: Patient Teaching Methods: Demonstration, Discussion Response to Teaching: Verbalize Understanding, Return Demonstration OT Short Term Goals Short Term Goals Transfers (B,C,W/C) (FIM): 5 (met) 1=Demonstrate adherence to instructed precautions during ADL tasks. 2=Patient will verbalize/demonstrate understanding of assistive devices/ modifications for ADL. 3=Patient will improve strength/tolerance for activity to enable patient to perform ADL's. OT Shelter Goals Foam Tank Laminator Goals Time Frame: Aug 08, 2018 Eating (FIM): 6 Eating (QC): 6 Groomin Oral Hygiene (QC): 6 Bathing(FIM): 6 Shower/Bathe Self (QC): 6 Upper Body Dressing(FIM): 6 Upper Body Dressing (QC): 6 Lower Body Dressing(FIM): 6 Lower Body Dressing (QC): 6 On/Off Footwear (QC): 6 Toileting(FIM): 6 Toileting Hygiene (QC): 6 Transfers (B,C,W/C) (FIM): 6 Toilet/Commode Transfer(FIM): 6 Toilet/Commode Transfer (QC): 6 Shower Transfer(FIM): 6 Additional Goals: 1-Demonstrate ADL Tasks, 2-Verbalize Understanding, 3- ImproveStrength/[place] 1=Demonstrate adherence to instructed precautions during ADL tasks. 2=Patient will verbalize/demonstrate understanding of assistive devices/ modifications for ADL. 3=Patient will improve strength/tolerance for activity to enable patient to perform ADL's. OT Education/Plan Problem List/Assessment Assessment: Decreased Activ Tolerance, Decreased UE Strength, Impaired I ADL's , Impaired Self-Care Skills, Restricted Funct UE ROM Discharge Recommendations Plan/Recommendations: Continue POC Therapy D/C Recommendations: Home w/ Family Support Treatment Plan/Plan of Care Treatment,Training & Education: Yes Patient would benefit from OT for education, treatment and training to promote independence in ADL's, mobility, safety and/or upper extremity function for ADL' s. Plan of Care: ADL Retraining, Functional Mobility, Group Exercise/Act as Ind Treatment Duration: Aug 08, 2018 Frequency: At least 5 of 7 days/Wk (IRF) Estimated Hrs Per Day: 1.5 hours per day Agreement: Yes Rehab Potential: Good Time/GCodes Start Time: 11:00 Stop Time: 12:00 Total Time Billed (hr/min): 60 Billed Treatment Time 1, ADL x 45 minutes, FA x 15 minutes. IMELDA FLORES OT Jul 30, 2018 14:14
--- NOTE | 2018-07-30 14:56 | Occupational Ther Daily Note ---
OT Current Status-Daily Note Subjective Pt. states that he is having 9/10 pain in left shoulder. Agrees to therapy. Nursing aware. Appearance Pt. in bed but alert and oriented. Agrees to work with OT. Mental Status/Objective Patient Orientation: Person, Place, Time, Situation Functional [place] Measure 0=Not Assessed/NA 4=Minimal Assistance 1=Total Assistance 5=Supervision or Setup 2=Maximal Assistance 6=Modified [place] 3=Moderate Assistance 7=Complete [place] ADL-Treatment Functional [place] Measure 0=Not Assessed/NA 4=Minimal Assistance 1=Total Assistance 5=Supervision or Setup 2=Maximal Assistance 6=Modified [place] 3=Moderate Assistance 7=Complete IndependenceIRFPAI Quality Coding Scale 6 Independent with activity with or without an assistive device 5 Patient requires set up or clean up by helper. Patient completes activity by themselves 4 Supervision or touching assist (CGA). [place] provide cues , steadying assist 3 The helper provides less than half the effort to complete the activity 2 The helper provides more than half the effort to complete the activity 1 Dependent. The helper does all the effort to complete an activity 7 Patient refused to complete or attempt activity 9 The patient did not perform the activity before the current illness or injury 88 Not attempted due to Medical conditions or safety concerns Transfers (B, C, W/C) (FIM): 4 (CGA for stability and balance with walker due to pt's report of pain in left shoulder.) Pt. transfers supine-sit with SBA and ambulates with walker to therapy dining area with CGA using walker. OT educates pt. on back safety, back precautions, and kitchen safety with utilizing back precautions. Pt. verbalizes understanding. Pt. able to practice retrieving items from high and low cabinets by "squatting" using knees and keeping back straight. Pt. is also educated briefly about energy conservation, as well as having family organize his kitchen for easier access to things he needs. Pt. educated on walker basket as well as walker tray. Pt. ambulated to laundry area and was able to complete simple laundry task using assessment expert for retrieval of items from washer and dryer. Pt. able to complete these tasks while maintaining back precautions. Will continue to educate pt. on back safety, and will provide literature to him for guide to safer living. Pt. ambulated back to room with CGA and transferred to bed with SBA. All needs met in room. Education OT Patient Education: Correct positioning, Energy conservation, Modified ADL techniques, Progress toward Goal/Update tx plan, Purpose of tx/functional activities, Reviewed precautions, Rehab process, Transfer techniques, Use of adapted equipment Teaching Recipient: Patient Teaching Methods: Demonstration, Discussion Response to Teaching: Verbalize Understanding, Return Demonstration OT Short Term Goals Short Term Goals Transfers (B,C,W/C) (FIM): 5 (met) 1=Demonstrate adherence to instructed precautions during ADL tasks. 2=Patient will verbalize/demonstrate understanding of assistive devices/ modifications for ADL. 3=Patient will improve strength/tolerance for activity to enable patient to perform ADL's. OT Alf Goals Alf Goals Time Frame: Aug 08, 2018 Eating (FIM): 6 Eating (QC): 6 Groomin Oral Hygiene (QC): 6 Bathing(FIM): 6 Shower/Bathe Self (QC): 6 Upper Body Dressing(FIM): 6 Upper Body Dressing (QC): 6 Lower Body Dressing(FIM): 6 Lower Body Dressing (QC): 6 On/Off Footwear (QC): 6 Toileting(FIM): 6 Toileting Hygiene (QC): 6 Transfers (B,C,W/C) (FIM): 6 Toilet/Commode Transfer(FIM): 6 Toilet/Commode Transfer (QC): 6 Shower Transfer(FIM): 6 Additional Goals: 1-Demonstrate ADL Tasks, 2-Verbalize Understanding, 3- ImproveStrength/[place] 1=Demonstrate adherence to instructed precautions during ADL tasks. 2=Patient will verbalize/demonstrate understanding of assistive devices/ modifications for ADL. 3=Patient will improve strength/tolerance for activity to enable patient to perform ADL's. OT Education/Plan Problem List/Assessment Assessment: Decreased Activ Tolerance, Impaired I ADL's, Impaired Self-Care Skills, Restricted Funct UE ROM Discharge Recommendations Plan/Recommendations: Continue POC Therapy D/C Recommendations: Home w/ Family Support Equpiment Recommendations-D/C: String Studies Director Treatment Plan/Plan of Care Treatment,Training & Education: Yes Patient would benefit from OT for education, treatment and training to promote independence in ADL's, mobility, safety and/or upper extremity function for ADL' s. Plan of Care: ADL Retraining, Functional Mobility, Group Exercise/Act as Ind Treatment Duration: Aug 08, 2018 Frequency: At least 5 of 7 days/Wk (IRF) Estimated Hrs Per Day: 1.5 hours per day Agreement: Yes Rehab Potential: Good Time/GCodes Start Time: 13:30 Stop Time: 14:00 Total Time Billed (hr/min): 30 Billed Treatment Time 1, ADL x 2 IMELDA FLORES OT Jul 30, 2018 14:56
[2018-07-30 16:11] VITALS: BP 110/72
[2018-07-30] MEDS: ENOXAPARIN 40 MG/0.4 ML (LOVENOX) SYR SC SCH (17:20)
[2018-07-30] MEDS: CYCLOBENZAPRINE 10 MG (FLEXERIL) TAB PO PRN (20:29)
--- NOTE | 2018-07-30 20:34 | Diagnostic Imaging Report ---
INDICATION: Post fall with jarring of the shoulder, pain. Cannot lift arm. TECHNIQUE: Three views of the left shoulder. CORRELATION STUDY: None. FINDINGS: There is no evidence of acute fracture or dislocation. Mild hypertrophic spurring about the acromioclavicular joint. Suggestion of some soft tissue edema around the shoulder. Visualized left lung apex and ribs demonstrate no acute findings. IMPRESSION: 1. Negative for acute fracture or dislocation of left shoulder. Dictated by: Dictated on workstation # [id number]
[2018-07-30] MEDS: QUEtiapine 25 MG (SEROquel) TAB IMMEDIATE RELEASE PO PRN (23:50)
[2018-07-31 05:15] VITALS: BP 131/88
[2018-07-31] MEDS: GABAPENTIN 300 MG (NEURONTIN) CAP PO SCH ×3 (08:11→20:06)
[2018-07-31] MEDS: AUGMENTIN 500 MG TAB (AMOXICILLIN/CLAVULANATE) PO SCH ×3 (08:11→20:06)
[2018-07-31] MEDS: NICOTINE 21 MG (NICODERM) PATCH TD SCH (08:11)
[2018-07-31] MEDS: NICOTINE PATCH REMOVAL TP SCH (08:21)
--- NOTE | 2018-07-31 08:33 | Progress Note (SOAP) ---
Subjective Time Seen by a Provider: 08:31 Subjective/Events-last exam Patient complaining of left shoulder pain. MRI Today. Did Not Sleep List Night and Given Several Kwell. Patient Did Sleep Then Objective Exam Vital Signs Date Time Temp Pulse Resp B/P (MAP) Pulse Ox O2 Delivery O2 Flow Rate FiO2 07/31/18 05:15 98.0 82 18 131/88 (102) 96 Room Air 07/30/18 16:11 96.9 97 16 110/72 (85) 96 Room Air 07/30/18 08:34 Room Air I & O 07/31/18 07:00 Intake Total 2150 ml Output Total 4250 ml Balance -2100 ml Capillary Refill : NONE General Appearance: No Apparent Distress, WD/WN HEENT: Normal ENT Inspection Neck: Full Range of Motion Respiratory: Lungs Clear, No Accessory Muscle Use, No Respiratory Distress Cardiovascular: Regular Rate, Rhythm, No Murmur Assessment/Plan Assessment/Plan Assess & Plan/Chief Complaint Lumbar radiculopathy. Elevated liver tests. Hypothyroid. Tobaccoism. . 07/27/18. Lumbar radiculopathy. Elevated liver tests. Hypothyroid. Tobaccoism. Patient having low back pain today. . 07/30/18. Lumbar radiculopathy. Elevated liver tests. Hypothyroid. Tobaccoism. Patient had pain in the left shoulder in a certain point. . 07/31/18. Lumbar radiculopathy. Elevated liver tests. Hypothyroid. Left shoulder pain. To have an MRI. Insomnia Patient received Seroquel Clinical Quality Measures DVT/VTE Risk/Contraindication: Risk Factor Score Per Nursin RFS Level Per Nursing on Admit: 2=Moderate CRISTHIAN DEL TORO DO Jul 31, 2018 08:33
--- NOTE | 2018-07-31 10:59 | Physical Therapy Daily Note ---
PT Daily Note-Current Subjective Pt was laying in bed upon arrival. Pt agrees to PT but reports 10/10 pain in L shoulder which pt will get MRI for later today. Pain Numeric Pain Scale: 10-Worst Possible Pain Location: Left Location Body Site: Shoulder Pain Description: Stabbing, Tightness Mental Status Patient Orientation: Person, Place, Time, Situation Transfers Functional [place] Measure 0=Not Assessed/NA 4=Minimal Assistance 1=Total Assistance 5=Supervision or Setup 2=Maximal Assistance 6=Modified [place] 3=Moderate Assistance 7=Complete IndependenceIRFPAI Quality Coding Scale 6 Independent with activity with or without an assistive device 5 Patient requires set up or clean up by helper. Patient completes activity by themselves 4 Supervision or touching assist (CGA). [facility] provide cues , steadying assist 3 The helper provides less than half the effort to complete the activity 2 The helper provides more than half the effort to complete the activity 1 Dependent. The helper does all the effort to complete an activity 7 Patient refused to complete or attempt activity 9 The patient did not perform the activity before the current illness or injury 88 Not attempted due to Medical conditions or safety concerns Scootin Supine to/from Sit: 6 Sit to/from Stand: 6 Sit to Stand (QC): 6 Weight Bearing Right Lower Extremity: Right Full Weight Bearing Left Lower Extremity: Left Full Weight Bearing Gait Training Does the Patient Walk?: Yes Distance (FIM): 3=150 ft Distance: 150' Walk 10 feet (QC): 6 Walk 50 ft with 2 Turns(QC): 6 Walk 150 ft (QC): 6 Gait Level of Assist: 6 Gait Persons Needed: 1 Gait Assistive Device: FWW Pt doesn't use LUE during transfers and ambulation due to pain. Pt walks with slightly stiff posture especially with R side. Wheelchair Training Does the Pt Use a Wheelchair?: No Stair Training Stair Training: Handrails/: 1 handrail #of Steps: 12 1 Step (curb) (QC): 6 4 Steps (QC): 6 12 Steps (QC): 6 Stairs: Pattern: Step to Level of Assist: 6 Exercises Standing: Hip Abduction, Hamstring curls, Heel/toe raises, Marching Standing Reps: 15 NuStep Minutes: 15 (Didn't use LUE) NuStep Workload: 5 Treatments Pt transfers from bed to standing [place] [facility] [place] Pt ambulates in hallway using FWW at Mod I. Pt uses NuStep for 15m at [facility] 5, followed by ambulating 12 steps. Pt rests then completes Standing Ex in //bars. Pt returns to room at end of tx to rest at EOB. Pt has all needs met. Assessment Pt reports pain and didn't sleep well last night due to pain so pt took increased rest breaks. Pt completes tasks well though. PT Short Term Goals Short Term Goals Time Frame: Aug 01, 2018 Transfers (B,C,W/C) (FIM): 5 (met) Gait (FIM): 5 (met) Gait Distance Comment: 200' Gait Level of Assist: 5 Gait Assistive Device: FWW PT Oracle Identity Management Consultant Goals Assisted Goals PT [employer] Identity Management Consultant Goals Time Frame: Aug 15, 2018 Transfers (B,C,W/C) (FIM): 6 Sit to Lying (QC): 6 Lying-Sitting on Side/Bed(QC): 6 Sit to Stand (QC): 6 Rollin Roll Left to Right (QC): 6 Chair/Nah-lj-[place]ms[place] Xfer(QC): 6 Car Transfer (QC): 6 Gait (FIM): 6 Distance: 300' Walk 10 feet (QC): 6 Walk 10ft-Uneven Surface(QC): 6 Walk 50ft with 2 Turns (QC): 6 Walk 150 ft (QC): 6 Gait Level of Assist: 6 Gait Assistive Device: FWW Stairs (FIM): 6 # of Steps: 12 1 Step (curb) (QC): 6 4 Steps (QC): 6 12 Steps (QC): 6 Stairs Level Of Assist: 6 PT Plan Problem List Problem List: Activity Tolerance, Functional Strength, Safety Treatment/Plan Treatment Plan: Continue Plan of Care Treatment Plan: Bed Mobility, Education, Functional Activity Wilfr[place], Functional Strength, Group Therapy, Gait, Safety, Therapeutic Exercise, Transfers Treatment Duration: Aug 15, 2018 Frequency: At least 5 of 7 days/Wk (IRF) Estimated Hrs Per Day: 1.5 hours per day Patient and/or Family Agrees t: Yes Safety Risks/Education Patient Education: Transfer Techniques, Correct Positioning, Safety Issues Teaching Recipient: Patient Teaching Methods: Discussion Response to Teaching: Verbalize Understanding Time/GCodes Time In: 800 Time Out: 900 Total Billed Treatment Time: 60 Total Billed Treatment 1, GT (15m), EX x2 (30m) & FA (15m) G Codes Necessary: BERNADETTE Amin SENIOR TECHNICAL EDITOR Jul 31, 2018 10:59
--- NOTE | 2018-07-31 11:55 | Occupational Ther Daily Note ---
OT Current Status-Daily Note Subjective Pt stated that he didn't sleep well the night before due to pain in his left shoulder. Pt stated that his pain level in his shoulder was 9+. Pain in back was a 7. Nursing notified. Appearance Pt in bed eating breakfast but willing to take a shower. Mental Status/Objective Patient Orientation: Person, Place, Time, Situation Functional [place] Measure 0=Not Assessed/NA 4=Minimal Assistance 1=Total Assistance 5=Supervision or Setup 2=Maximal Assistance 6=Modified [place] 3=Moderate Assistance 7=Complete [place] ADL-Treatment Functional [place] Measure 0=Not Assessed/NA 4=Minimal Assistance 1=Total Assistance 5=Supervision or Setup 2=Maximal Assistance 6=Modified [place] 3=Moderate Assistance 7=Complete IndependenceIRFPAI Quality Coding Scale 6 Independent with activity with or without an assistive device 5 Patient requires set up or clean up by helper. Patient completes activity by themselves 4 Supervision or touching assist (CGA). [place] provide cues , steadying assist 3 The helper provides less than half the effort to complete the activity 2 The helper provides more than half the effort to complete the activity 1 Dependent. The helper does all the effort to complete an activity 7 Patient refused to complete or attempt activity 9 The patient did not perform the activity before the current illness or injury 88 Not attempted due to Medical conditions or safety concerns Eating (FIM): 7 Eating (QC): 6 Grooming (FIM): 6 (Pt able to comb hair and brush teeth at sink with walker. Safety concerns due to recent injury to shoulder. ) Oral Hygiene (QC): 6 Bathing (FIM): 5 (Pt able to shower all body parts with setup. ) Shower/Bathe Self (QC): 5 Upper Body (FIM): 5 (Pt able to doff and don upper body clothing with setup. ) Upper Body Dressing (QC): 5 Lower Body Dressing (FIM): 5 (Pt able to doff and don shorts and slipper socks with setup. ) Lower Body Dressing (QC): 5 On/Off Footwear (QC): 5 Transfers (B, C, W/C) (FIM): 4 (Pt able to transfer supine to sit with SBA. Pt able to transfer sit to stand at walker with CGA due to recent injury to shoulder. ) Shower Transfer(FIM): 4 (Pt able to transfer from walker to shower bench with CGA due to recent injury to shoulder. ) OT provided CGA with Pt due to recent injury from yesterday. Pt injured shoulder due to reported back "seizing" up. Other Treatment Pt loaded clothing into walker basket and ambulated with CGA to laundry room to wash his clothing. Pt able to complete task of putting clothing in washing machine while keeping back precautions. Pt ambulates with CGA to therapy gym. Pt participated in 12 minutes of R UE activity tolerance using armbike. Pt averaged around 15 larose during activity. Pt participated in 2, Right UE exercises x 4# dumbbell x 20 reps in multiple planes for increased strength. Ambulated back to room with CGA at walker. Transferred stand-sit and sit- supine with SBA. All needs met. Education OT Patient Education: Correct positioning, Exercise program, Modified ADL techniques, Progress toward Goal/Update tx plan, Purpose of tx/functional activities, Reviewed precautions, Rehab process Teaching Recipient: Patient Teaching Methods: Demonstration, Discussion Response to Teaching: Verbalize Understanding, Return Demonstration OT Short Term Goals Short Term Goals Transfers (B,C,W/C) (FIM): 5 (met) 1=Demonstrate adherence to instructed precautions during ADL tasks. 2=Patient will verbalize/demonstrate understanding of assistive devices/ modifications for ADL. 3=Patient will improve strength/tolerance for activity to enable patient to perform ADL's. OT Gaming Surveillance Observer Goals [facility] Goals Time Frame: Aug 08, 2018 Eating (FIM): 6 Eating (QC): 6 Groomin Oral Hygiene (QC): 6 Bathing(FIM): 6 Shower/Bathe Self (QC): 6 Upper Body Dressing(FIM): 6 Upper Body Dressing (QC): 6 Lower Body Dressing(FIM): 6 Lower Body Dressing (QC): 6 On/Off Footwear (QC): 6 Toileting(FIM): 6 Toileting Hygiene (QC): 6 Transfers (B,C,W/C) (FIM): 6 Toilet/Commode Transfer(FIM): 6 Toilet/Commode Transfer (QC): 6 Shower Transfer(FIM): 6 Additional Goals: 1-Demonstrate ADL Tasks, 2-Verbalize Understanding, 3- ImproveStrength/Wilfr[place] 1=Demonstrate adherence to instructed precautions during ADL tasks. 2=Patient will verbalize/demonstrate understanding of assistive devices/ modifications for ADL. 3=Patient will improve strength/tolerance for activity to enable patient to perform ADL's. OT Education/Plan Problem List/Assessment Assessment: Decreased Activ Tolerance, Decreased UE Strength, Impaired I ADL's , Impaired Self-Care Skills, Restricted Funct UE ROM Discharge Recommendations Plan/Recommendations: Continue POC Therapy D/C Recommendations: Home w/ Family Support Treatment Plan/Plan of Care Treatment,Training & Education: Yes Patient would benefit from OT for education, treatment and training to promote independence in ADL's, mobility, safety and/or upper extremity function for ADL' s. Plan of Care: ADL Retraining, Functional Mobility, Group Exercise/Act as Ind Treatment Duration: Aug 08, 2018 Frequency: At least 5 of 7 days/Wk (IRF) Estimated Hrs Per Day: 1.5 hours per day Agreement: Yes Rehab Potential: Good Time/GCodes Start Time: 09:15 Stop Time: 10:15 Total Time Billed (hr/min): 60 Billed Treatment Time 1, ADL x 45 minutes, EX x 15 minutes. IMELDA FLORES OT Jul 31, 2018 11:55
--- NOTE | 2018-07-31 13:19 | PM & R (SOAP) Progress Note ---
Subjective This was a face to face visit with the patient. Date Seen by Provider: Jul 31, 2018 Time Seen by Provider: 07:45 Subjective/Events-last exam Patient was seen in his room this AM Patient c/o Left shoulder pain XRAY shows soft tissue swelling but no apparent fracture/dislocation MRI pending Review of Systems Musculoskeletal: shoulder pain Objective Physician Exam Last Set of Vital Signs Vital Signs Date Time Temp Pulse Resp B/P (MAP) Pulse Ox O2 Delivery O2 Flow Rate FiO2 07/31/18 09:00 Room Air 07/31/18 05:15 98.0 82 18 131/88 (102) 96 Capillary Refill : NONE I&O Intake and Output 07/31/18 00:00 Intake Total 1712 ml Output Total 2100 ml Balance -388 ml Intake Oral 1712 ml Output Urine Total 2100 ml # Voids 4 General: Alert, Oriented X3, Cooperative, No Acute Distress, Other (c/o rt leg weakness and pain) HEENT: Atraumatic, PERRLA, EOMI, Mucous Memb Moist/[place] Neck: Supple, No JVD Lungs: Clear to Auscultation Heart: Regular Rate Abdomen: Normal Bowel Sounds, Soft, No Tenderness Extremities: No Edema, Other (Left shoulder with diffuse tenderness with increased pain and guarding with movement) Skin: No Rashes, No Breakdown, No Significant Lesion Neuro: Other (and weakness RLE 1to 2/5 on the left 4/5) Psych/Mental Status: Mental Status NL Assessment/Plan Assessment and Plan 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
--- NOTE | 2018-07-31 13:32 | Physical Therapy Daily Note ---
PT Daily Note-Current Subjective Pt laying Supine asleep in bed upon arrival. Pt agrees to PT. Pain Numeric Pain Scale: 7 Location: Lower Location Body Site: Back Pain Description: Ache, Tightness Mental Status Patient Orientation: Person, Place, Time, Situation Transfers Functional [place] Measure 0=Not Assessed/NA 4=Minimal Assistance 1=Total Assistance 5=Supervision or Setup 2=Maximal Assistance 6=Modified [place] 3=Moderate Assistance 7=Complete IndependenceIRFPAI Quality Coding Scale 6 Independent with activity with or without an assistive device 5 Patient requires set up or clean up by helper. Patient completes activity by themselves 4 Supervision or touching assist (CGA). [place] provide cues , steadying assist 3 The helper provides less than half the effort to complete the activity 2 The helper provides more than half the effort to complete the activity 1 Dependent. The helper does all the effort to complete an activity 7 Patient refused to complete or attempt activity 9 The patient did not perform the activity before the current illness or injury 88 Not attempted due to Medical conditions or safety concerns Scootin Rollin Supine to/from Sit: 6 Sit to/from Stand: 6 Sit to Stand (QC): 6 Weight Bearing Right Lower Extremity: Right Full Weight Bearing Left Lower Extremity: Left Full Weight Bearing Gait Training Does the Patient Walk?: Yes Distance (FIM): 3=150 ft Distance: 150' Walk 10 feet (QC): 6 Walk 50 ft with 2 Turns(QC): 6 Walk 150 ft (QC): 6 Gait Level of Assist: 6 Gait Persons Needed: 1 Gait Assistive Device: FWW Pt walks with smaller KOBY, bowlegged. Pt given VC for wider KOBY and pt able to correct. Wheelchair Training Does the Pt Use a Wheelchair?: No Exercises Supine Ex: Ankle pumps, Quad Set, Glut sets, Heel Slides, Short Arc Quads, Straight leg raise, Hip abd/add Supine Reps: 15 Treatments Pt transfers from bed to standing using FWW at Mod I then ambulates in hallway at Mod I. Pt completes Supine EX on mat before returning to room to rest at end of tx. Pt uses restroom before laying in bed with all needs met. Assessment Current Status: Good Progress Pt reports fatigue and pain but able to complete tasks given. PT Short Term Goals Short Term Goals Time Frame: Aug 01, 2018 Transfers (B,C,W/C) (FIM): 5 (met) Gait (FIM): 5 (met) Gait Distance Comment: 200' Gait Level of Assist: 5 Gait Assistive Device: FWW PT Graining Operator Goals Graining Operator Goals PT [facility] Goals Time Frame: Aug 15, 2018 Transfers (B,C,W/C) (FIM): 6 Sit to Lying (QC): 6 Lying-Sitting on Side/Bed(QC): 6 Sit to Stand (QC): 6 Rollin Roll Left to Right (QC): 6 Chair/Gpq-xx-Hbwdj Xfer(QC): 6 Car Transfer (QC): 6 Gait (FIM): 6 Distance: 300' Walk 10 feet (QC): 6 Walk 10ft-Uneven Surface(QC): 6 Walk 50ft with 2 Turns (QC): 6 Walk 150 ft (QC): 6 Gait Level of Assist: 6 Gait Assistive Device: FWW Stairs (FIM): 6 # of Steps: 12 1 Step (curb) (QC): 6 4 Steps (QC): 6 12 Steps (QC): 6 Stairs Level Of Assist: 6 PT Plan Problem List Problem List: Activity Tolerance, Functional Strength Treatment/Plan Treatment Plan: Continue Plan of Care Treatment Plan: Bed Mobility, Education, Functional Activity Wilfrido, Functional Strength, Group Therapy, Gait, Safety, Therapeutic Exercise, Transfers Treatment Duration: Aug 15, 2018 Frequency: At least 5 of 7 days/Wk (IRF) Estimated Hrs Per Day: 1.5 hours per day Patient and/or Family Agrees t: Yes Safety Risks/Education Patient Education: Gait Training, Transfer Techniques, Correct Positioning, Safety Issues Teaching Recipient: Patient Teaching Methods: Discussion Response to Teaching: Verbalize Understanding Time/GCodes Time In: 1300 Time Out: 1330 Total Billed Treatment Time: 35 Total Billed Treatment 1, GT (15m) & EX (20m) G Codes Necessary: BERNADETTE Amin DIRECTOR PAYER Jul 31, 2018 13:32
--- NOTE | 2018-07-31 14:23 | Occupational Ther Daily Note ---
OT Current Status-Daily Note Subjective Pt states that he realizes that he doesn't always do things in the best way to protect his back. Appearance Pt in bathroom upon entry of room. Pt moves to bed with SBA with walker. Pt willing to work with OT. Mental Status/Objective Patient Orientation: Person, Place, Time, Situation Functional [place] Measure 0=Not Assessed/NA 4=Minimal Assistance 1=Total Assistance 5=Supervision or Setup 2=Maximal Assistance 6=Modified [place] 3=Moderate Assistance 7=Complete [place] ADL-Treatment Functional [place] Measure 0=Not Assessed/NA 4=Minimal Assistance 1=Total Assistance 5=Supervision or Setup 2=Maximal Assistance 6=Modified [place] 3=Moderate Assistance 7=Complete IndependenceIRFPAI Quality Coding Scale 6 Independent with activity with or without an assistive device 5 Patient requires set up or clean up by helper. Patient completes activity by themselves 4 Supervision or touching assist (CGA). [place] provide cues , steadying assist 3 The helper provides less than half the effort to complete the activity 2 The helper provides more than half the effort to complete the activity 1 Dependent. The helper does all the effort to complete an activity 7 Patient refused to complete or attempt activity 9 The patient did not perform the activity before the current illness or injury 88 Not attempted due to Medical conditions or safety concerns Transfers (B, C, W/C) (FIM): 5 (Pt transfers from standing to sitting on bed with SBA. Sit to supine with SBA. ) OT educated Pt with energy conservation techniques, as well as back safety to help prevent further back injury. OT educated Pt on how to perform functional activities while keeping back precautions. OT discussed home activities that can be done in a simpler way to help prevent further reinjury of back. Discussion included areas of cooking, laundry, child care aide, transferring, and taking rest breaks as needed. Pt. supine in bed during this education process. Pt. verbalizes understanding. Pt. is encouraged to come up with any things that he might want to address or work on while in rehab to increase overall independence and safety in his home upon discharge. All needs met in room. Education OT Patient Education: Correct positioning, Energy conservation, Modified ADL techniques, Progress toward Goal/Update tx plan, Purpose of tx/functional activities, Reviewed precautions, Rehab process, Safety issues, Transfer techniques Teaching Recipient: Patient Teaching Methods: Demonstration, Discussion Response to Teaching: Verbalize Understanding OT Short Term Goals Short Term Goals Transfers (B,C,W/C) (FIM): 5 (met) 1=Demonstrate adherence to instructed precautions during ADL tasks. 2=Patient will verbalize/demonstrate understanding of assistive devices/ modifications for ADL. 3=Patient will improve strength/tolerance for activity to enable patient to perform ADL's. OT Tiltrotor Crew Chief Goals Tiltrotor Crew Chief Goals Time Frame: Aug 08, 2018 Eating (FIM): 6 Eating (QC): 6 Groomin Oral Hygiene (QC): 6 Bathing(FIM): 6 Shower/Bathe Self (QC): 6 Upper Body Dressing(FIM): 6 Upper Body Dressing (QC): 6 Lower Body Dressing(FIM): 6 Lower Body Dressing (QC): 6 On/Off Footwear (QC): 6 Toileting(FIM): 6 Toileting Hygiene (QC): 6 Transfers (B,C,W/C) (FIM): 6 Toilet/Commode Transfer(FIM): 6 Toilet/Commode Transfer (QC): 6 Shower Transfer(FIM): 6 Additional Goals: 1-Demonstrate ADL Tasks, 2-Verbalize Understanding, 3- ImproveStrength/[place] 1=Demonstrate adherence to instructed precautions during ADL tasks. 2=Patient will verbalize/demonstrate understanding of assistive devices/ modifications for ADL. 3=Patient will improve strength/tolerance for activity to enable patient to perform ADL's. OT Education/Plan Problem List/Assessment Assessment: Decreased Activ Tolerance, Decreased UE Strength, Impaired I ADL's , Impaired Self-Care Skills Discharge Recommendations Plan/Recommendations: Continue POC Therapy D/C Recommendations: Home w/ Family Support Treatment Plan/Plan of Care Treatment,Training & Education: Yes Patient would benefit from OT for education, treatment and training to promote independence in ADL's, mobility, safety and/or upper extremity function for ADL' s. Plan of Care: ADL Retraining, Functional Mobility, Group Exercise/Act as Ind Treatment Duration: Aug 08, 2018 Frequency: At least 5 of 7 days/Wk (IRF) Estimated Hrs Per Day: 1.5 hours per day Agreement: Yes Rehab Potential: Good Time/GCodes Start Time: 13:30 Stop Time: 14:00 Total Time Billed (hr/min): 30 Billed Treatment Time 1, ADL x 30 minutes IMELDA FLORES OT Jul 31, 2018 14:23
[2018-07-31 16:08] VITALS: BP 140/96
--- NOTE | 2018-07-31 16:27 | Diagnostic Imaging Report ---
EXAMINATION: Magnetic resonance imaging of the left shoulder without contrast. DATE: July 31, 2018. COMPARISON: Left shoulder radiographs July 30, 2018. HISTORY: 48-year-old male, left shoulder pain and limited range of motion. TECHNIQUE: Magnetic Resonance Imaging sequences were performed of the shoulder without contrast. FINDINGS: ROTATOR CUFF, LIGAMENTS, TENDONS, AND MUSCLES: There is a 15 mm wide tear involving the anterior aspect of the supraspinatus tendon which is a full-thickness tear with the tear measuring 5 mm in medial to lateral dimension. There is tendinopathy of the remaining portions of supraspinatus. Infraspinatus and teres minor tendons are intact. There is severe subscapularis tendinopathy. There is normal rotator cuff muscle bulk and signal. LONG HEAD OF BICEPS: The biceps labral attachment and long head of the biceps tendon is intact. The long head of the biceps tendon is normally positioned within the bicipital groove. GLENOHUMERAL JOINT: The humeral head is well positioned relative to the glenoid. The labrum is grossly intact. There is no identified paralabral cyst. The articular cartilage is grossly intact. There is a small to moderate glenohumeral joint effusion without prominent synovitis or intra-articular body. ACROMIOCLAVICULAR JOINT: The acromioclavicular joint is normally aligned. The coracoclavicular and coracoacromial ligaments are intact. There are mild acromioclavicular degenerative changes without large undersurface osteophyte. There is a very large acromial keel spur. BONE: There is no os acromiale. There is no acute fracture, bone contusion, or evidence of osteonecrosis. BURSAE AND SOFT TISSUES: There is fluid within the subacromial subdeltoid bursa compatible with the full-thickness rotator cuff tendon tear, bursitis, and/or recent injection. IMPRESSION: 1. A 15 mm wide full-thickness tear involving the anterior aspect of the supraspinatus tendon with the tear measuring 5 mm in medial to lateral dimension. Tendinopathy of the remaining portions of supraspinatus. Severe subscapularis tendinopathy. No fatty muscle atrophy. 2. Mild acromioclavicular degenerative changes without large undersurface osteophyte. A very large acromial keel spur. No os acromiale. 3. Small to moderate glenohumeral joint effusion with grossly intact labrum. 4. No acute fracture. 5. Fluid within the subacromial subdeltoid bursa compatible with the full-thickness rotator cuff tendon tear, bursitis, and/or recent injection. Dictated by: Dictated on workstation # [id number]
[2018-07-31] MEDS: ENOXAPARIN 40 MG/0.4 ML (LOVENOX) SYR SC SCH (17:10)
[2018-07-31] MEDS: oxyCODONE/APAP 10/325MG (PERCOCET 10) TABLET PO PRN (18:13)
[2018-07-31] MEDS: fentaNYL INJECTION 100 MCG/2 ML AMP IVP PRN (20:18)
[2018-07-31] MEDS: QUEtiapine 25 MG (SEROquel) TAB IMMEDIATE RELEASE PO PRN (21:13)
[2018-07-31] MEDS ORDERED: methylPREDNISolone 40 MG/ML (DEPO MEDROL) VIAL IA ONE (22:00)
[2018-07-31] MEDS ORDERED: BUPIVACAINE 0.25% 30 ML (SENSORCAINE) VIAL INJ ONE (22:00)
[2018-08-01] MEDS: oxyCODONE/APAP 10/325MG (PERCOCET 10) TABLET PO PRN ×3 (01:06→14:44)
[2018-08-01] MEDS: fentaNYL INJECTION 100 MCG/2 ML AMP IVP PRN ×4 (04:47→20:03)
[2018-08-01 05:13] VITALS: BP_SYST 136; BP_DIAS 87; BP_DIAS 97
[2018-08-01] MEDS: NICOTINE 21 MG (NICODERM) PATCH TD SCH (07:52)
[2018-08-01] MEDS: GABAPENTIN 300 MG (NEURONTIN) CAP PO SCH ×3 (07:52→20:47)
[2018-08-01] MEDS: NICOTINE PATCH REMOVAL TP SCH (07:52)
[2018-08-01] MEDS: AUGMENTIN 500 MG TAB (AMOXICILLIN/CLAVULANATE) PO SCH ×2 (07:52→14:44)
--- NOTE | 2018-08-01 08:19 | Progress Note (SOAP) ---
Subjective Time Seen by a Provider: 08:13 Subjective/Events-last exam Patient had an MRI showing he had a tear. Patient seen orthopedic yesterday and had a cortisone shot. Objective Exam Vital Signs Date Time Temp Pulse Resp B/P (MAP) Pulse Ox O2 Delivery O2 Flow Rate FiO2 08/01/18 05:13 98.4 99 18 136/87 (103) 98 Room Air 07/31/18 21:00 Room Air 07/31/18 16:08 97.7 106 16 140/96 (111) 99 Room Air 07/31/18 09:00 Room Air I & O 08/01/18 07:00 Intake Total 2070 ml Output Total 4300 ml Balance -2230 ml Capillary Refill : NONE General Appearance: No Apparent Distress, WD/WN Assessment/Plan Assessment/Plan Assess & Plan/Chief Complaint Lumbar radiculopathy. Elevated liver tests. Hypothyroid. Tobaccoism. . 07/27/18. Lumbar radiculopathy. Elevated liver tests. Hypothyroid. Tobaccoism. Patient having low back pain today. . 07/30/18. Lumbar radiculopathy. Elevated liver tests. Hypothyroid. Tobaccoism. Patient had pain in the left shoulder in a certain point. . 07/31/18. Lumbar radiculopathy. Elevated liver tests. Hypothyroid. Left shoulder pain. To have an MRI. Insomnia Patient received Seroquel. . 08/01/18. Lumbar radiculopathy. Elevated liver tests. Hypothyroid. Left shoulder pain due to care. Insomnia Clinical Quality Measures DVT/VTE Risk/Contraindication: Risk Factor Score Per Nursin RFS Level Per Nursing on Admit: 2=Moderate CRISTHIAN DEL TORO DO Aug 01, 2018 08:19
[2018-08-01 09:00] LABS: ALBUMIN 4.1 GM/DL (3.2-4.5); BILIRUBIN,DIRECT 0.2 MG/DL (0.0-0.3); BILIRUBIN,INDIRECT 0.2 MG/DL; BILIRUBIN,TOTAL 0.4 MG/DL (0.1-1.0); TOTAL PROTEIN 8.1 GM/DL (6.4-8.2)
--- NOTE | 2018-08-01 09:08 | PM & R (SOAP) Progress Note ---
Subjective This was a face to face visit with the patient. Date Seen by Provider: Aug 01, 2018 Time Seen by Provider: 07:50 Subjective/Events-last exam Patient was seen in his room this AM Case discussed with wirer has provide a steroid injection to left shoulder this AM Patient Modified Independent for transfers Date Identified: Aug 01, 2018 Time Identified: 07:30 Medication Intervention: Steroid injection left shoulder for acute Left rotator cuff tear IV fentanyl temp for enhanced pain control in the acute phase Review of Systems Musculoskeletal: shoulder pain Objective Physician Exam Last Set of Vital Signs Vital Signs Date Time Temp Pulse Resp B/P (MAP) Pulse Ox O2 Delivery O2 Flow Rate FiO2 08/01/18 05:13 98.4 99 18 136/87 (103) 98 Room Air Capillary Refill : NONE I&O Intake and Output 08/01/18 00:00 Intake Total 2000 ml Output Total 4050 ml Balance -2050 ml Intake Oral 2000 ml Output Urine Total 4050 ml # Bowel Movements 1 General: Alert, Oriented X3, Cooperative, No Acute Distress, Other (c/o rt leg weakness and pain) HEENT: Atraumatic, PERRLA, EOMI, Mucous Memb Moist/[place] Neck: Supple, No JVD Lungs: Clear to Auscultation Heart: Regular Rate Abdomen: Normal Bowel Sounds, Soft, No Tenderness Extremities: No Edema, Other (Left shoulder with diffuse tenderness with increased pain and guarding with movement) Skin: No Rashes, No Breakdown, No Significant Lesion Neuro: Other (and weakness RLE 1to 2/5 on the left 4/5) Psych/Mental Status: Mental Status NL Results Lab Data Laboratory Tests 08/01/18 08:30: Total Bilirubin 0.4, Direct Bilirubin 0.2, Indirect Bilirubin 0.2, Aspartate Amino Transf (AST/SGOT) 17, Alanine Aminotransferase (ALT/SGPT) 44, Alkaline Phosphatase 145H, Total Protein 8.1, Albumin 4.1 Assessment/Plan Assessment and Plan DDD Lumbar spine with RT Foraminal stenosis and radicular pain rt leg improving Acute Left shoulder Rotator cuff tear HX of polysubstance abuse Tobaccoism smoking cessation Dental pain improved with course of antibiotic DVT Prophylaxis on Lovenox subcut Plan Continue PT/OT/Pain management Team Conference later today-see report for full functional update and POC and ELOS F/U with ortho on an outpatient basis re acute Left shoulder rotator cuff tear Co-Morbidities that are continuing to impact the rehab process: (include details ) JEOVANY COUGHLIN MD Aug 01, 2018 09:08
--- NOTE | 2018-08-01 10:59 | Occupational Ther Daily Note ---
OT Current Status-Daily Note Subjective Pt stated that he didn't sleep well last night due to pain in his shoulder. Pt reported that he was told that his new injury was a rotator cuff injury. Reported that pain was a "8 1/2" in shoulder and "7" in back. Nurse notified. Appearance Pt supine in bed, alert, and wanting to take a shower. Mental Status/Objective Patient Orientation: Person, Place, Time, Situation Functional [place] Measure 0=Not Assessed/NA 4=Minimal Assistance 1=Total Assistance 5=Supervision or Setup 2=Maximal Assistance 6=Modified [place] 3=Moderate Assistance 7=Complete [place] Attachments: IV ADL-Treatment Functional [place] Measure 0=Not Assessed/NA 4=Minimal Assistance 1=Total Assistance 5=Supervision or Setup 2=Maximal Assistance 6=Modified [place] 3=Moderate Assistance 7=Complete IndependenceIRFPAI Quality Coding Scale 6 Independent with activity with or without an assistive device 5 Patient requires set up or clean up by helper. Patient completes activity by themselves 4 Supervision or touching assist (CGA). [place] provide cues , steadying assist 3 The helper provides less than half the effort to complete the activity 2 The helper provides more than half the effort to complete the activity 1 Dependent. The helper does all the effort to complete an activity 7 Patient refused to complete or attempt activity 9 The patient did not perform the activity before the current illness or injury 88 Not attempted due to Medical conditions or safety concerns Grooming (FIM): 5 (Pt able to comb hair and brush teeth at sink with walker with SBA and safety concerns. ) Oral Hygiene (QC): 4 Bathing (FIM): 5 (Pt able to bathe all body parts with setup. ) Shower/Bathe Self (QC): 5 Upper Body (FIM): 5 (Pt able to doff and don shirt with setup. ) Upper Body Dressing (QC): 5 Lower Body Dressing (FIM): 5 (Pt able to doff and don shorts using grab bars to stand to pull up pants with SBA. Pt able to don slipper socks sitting down on shower bench and bringing foot up to knee. ) Lower Body Dressing (QC): 4 On/Off Footwear (QC): 4 Transfers (B, C, W/C) (FIM): 5 (Pt able to transfer to sit from supine to EOB. Able to transfer sit-stand with walker with SBA.) Shower Transfer(FIM): 5 (Pt able to transfer from stand to sit on shower bench with SBA with safety concerns and use of grab bars. ) Pt able to ambulate to shower with SBA. Pt able to doff clothing while sitting on shower bench with SBA. Pt able to pull down pants using grab bars to stand to pull down pants with SBA. Pt able to wash all body parts. Pt able to don shorts using grab bars to stand while pulling shorts up with SBA. Pt sits and is able to don shirt and slipper socks with SBA. Pt ambulates to sink to brush teeth and comb hair with SBA. Pt ambulates with SBA to laundry room to put laundry into washing machine and start washer while keeping back precautions. Pt ambulates to therapy gym with SBA. Other Treatment Pt discussed with OT the timeline of events that occurred to get him to this point. Message was left with to obtain more information about recent shoulder injury by PT. Waiting for call back to determined next step in treatment of shoulder. Pt participated in activity tolerance exercise on armbike for 10 minutes at mod resistance with right UE. Pt ambulated to room with CGA due to Pt stating that his leg didn't feel that it was "working right. " Pt transferred from stand to sit with SBA. Pt transferred from sit to supine with SBA. All needs met. Education OT Patient Education: Correct positioning, Energy conservation, Exercise program, Modified ADL techniques, Progress toward Goal/Update tx plan, Purpose of tx/functional activities, Reviewed precautions, Rehab process, Safety issues , Transfer techniques Teaching Recipient: Patient Teaching Methods: Demonstration, Discussion Response to Teaching: Verbalize Understanding, Return Demonstration OT Short Term Goals Short Term Goals Transfers (B,C,W/C) (FIM): 5 (met) 1=Demonstrate adherence to instructed precautions during ADL tasks. 2=Patient will verbalize/demonstrate understanding of assistive devices/ modifications for ADL. 3=Patient will improve strength/tolerance for activity to enable patient to perform ADL's. OT Chcf Goals Chcf Goals Time Frame: Aug 08, 2018 Eating (FIM): 6 Eating (QC): 6 Groomin Oral Hygiene (QC): 6 Bathing(FIM): 6 Shower/Bathe Self (QC): 6 Upper Body Dressing(FIM): 6 Upper Body Dressing (QC): 6 Lower Body Dressing(FIM): 6 Lower Body Dressing (QC): 6 On/Off Footwear (QC): 6 Toileting(FIM): 6 Toileting Hygiene (QC): 6 Transfers (B,C,W/C) (FIM): 6 Toilet/Commode Transfer(FIM): 6 Toilet/Commode Transfer (QC): 6 Shower Transfer(FIM): 6 Additional Goals: 1-Demonstrate ADL Tasks, 2-Verbalize Understanding, 3- ImproveStrength/[place] 1=Demonstrate adherence to instructed precautions during ADL tasks. 2=Patient will verbalize/demonstrate understanding of assistive devices/ modifications for ADL. 3=Patient will improve strength/tolerance for activity to enable patient to perform ADL's. OT Education/Plan Problem List/Assessment Assessment: Decreased Safety Aware, Decreased UE Strength, Impaired I ADL's, Impaired Self-Care Skills, Restricted Funct UE ROM Discharge Recommendations Plan/Recommendations: Continue POC Therapy D/C Recommendations: Home w/ Family Support Treatment Plan/Plan of Care Treatment,Training & Education: Yes Patient would benefit from OT for education, treatment and training to promote independence in ADL's, mobility, safety and/or upper extremity function for ADL' s. Plan of Care: ADL Retraining, Functional Mobility, Group Exercise/Act as Ind Treatment Duration: Aug 08, 2018 Frequency: At least 5 of 7 days/Wk (IRF) Estimated Hrs Per Day: 1.5 hours per day Agreement: Yes Rehab Potential: Good Time/GCodes Start Time: 09:15 Stop Time: 10:45 Total Time Billed (hr/min): 90 Billed Treatment Time 1, ADL x 60 minutes, FA x 15 minutes, EX x 15 minutes. IMELDA FLORES OT Aug 01, 2018 10:59
--- NOTE | 2018-08-01 12:13 | Physical Therapy Daily Note ---
PT Daily Note-Current Subjective Pt. explains that he had a near fall in his bathroom here and in catching himself he injured his left shoulder and this is now the greater source of his pain. Pt. reports the MRI showed a rotator cuff tear. Pain Numeric Pain Scale: 9 Location: Left Location Body Site: Shoulder Pain Description: Stabbing Mental Status Patient Orientation: Normal For Age Attachments: Other-See Comments (sling left shoulder was donned) Transfers Functional [place] Measure 0=Not Assessed/NA 4=Minimal Assistance 1=Total Assistance 5=Supervision or Setup 2=Maximal Assistance 6=Modified [place] 3=Moderate Assistance 7=Complete IndependenceIRFPAI Quality Coding Scale 6 Independent with activity with or without an assistive device 5 Patient requires set up or clean up by helper. Patient completes activity by themselves 4 Supervision or touching assist (CGA). [place] provide cues , steadying assist 3 The helper provides less than half the effort to complete the activity 2 The helper provides more than half the effort to complete the activity 1 Dependent. The helper does all the effort to complete an activity 7 Patient refused to complete or attempt activity 9 The patient did not perform the activity before the current illness or injury 88 Not attempted due to Medical conditions or safety concerns Transfers (B, C, W/C) (FIM): 6 Scootin Rollin Supine to/from Sit: 6 Sit to/from Stand: 6 Weight Bearing Right Lower Extremity: Right Full Weight Bearing Left Lower Extremity: Left Full Weight Bearing Gait Training Does the Patient Walk?: Yes Gait (FIM): 4 Distance (FIM): 3=150 ft (170x2) Gait Level of Assist: 4 Gait Persons Needed: 1 Gait Assistive Device: Walker Davidson pt. initiated with davidson walker as his left arm is unable to weight bear on FWW Exercises bilateral hamstring stretches x 20sec x 3 each as well as yan psoas stretches 3 x 20 sec in supine hanging limb off high low table with assistance. Exercise for stretching back . well as initiation of left shoulder pendulum exercise and APROM flexion x 6 Assessment Current Status: Fair Progress pain in right LE and Left shoulder limit activity, pain level high this date PT Short Term Goals Short Term Goals Time Frame: Aug 01, 2018 Transfers (B,C,W/C) (FIM): 5 (met) Gait (FIM): 5 (met) Gait Distance Comment: 200' Gait Level of Assist: 5 Gait Assistive Device: FWW PT [employer] Goals Senior Living Goals PT Senior Living Goals Time Frame: Aug 15, 2018 Transfers (B,C,W/C) (FIM): 6 Sit to Lying (QC): 6 Lying-Sitting on Side/Bed(QC): 6 Sit to Stand (QC): 6 Rollin Roll Left to Right (QC): 6 Chair/Oww-dx-Wpfob Xfer(QC): 6 Car Transfer (QC): 6 Gait (FIM): 6 Distance: 300' Walk 10 feet (QC): 6 Walk 10ft-Uneven Surface(QC): 6 Walk 50ft with 2 Turns (QC): 6 Walk 150 ft (QC): 6 Gait Level of Assist: 6 Gait Assistive Device: FWW Stairs (FIM): 6 # of Steps: 12 1 Step (curb) (QC): 6 4 Steps (QC): 6 12 Steps (QC): 6 Stairs Level Of Assist: 6 PT Plan Treatment/Plan Treatment Plan: Continue Plan of Care Treatment Plan: Bed Mobility, Education, Functional Activity [place], Functional Strength, Group Therapy, Gait, Safety, Therapeutic Exercise, Transfers Treatment Duration: Aug 15, 2018 Frequency: At least 5 of 7 days/Wk (IRF) Estimated Hrs Per Day: 1.5 hours per day Patient and/or Family Agrees t: Yes Safety Risks/Education Patient Education: Gait Training, Transfer Techniques, Correct Positioning, Disease Process, Safety Issues Teaching Recipient: Patient Teaching Methods: Demonstration, Discussion Response to Teaching: Verbalize Understanding, Return Demonstration, Reinforcement Needed discussed pts shoulder MRI results and Dr was called by PT Bonita Olivarez with orders recieved for sling as well as pendulum ex Time/GCodes Time In: 1100 Time Out: 1205 Total Billed Treatment Time: 65 Total Billed Treatment 1,EX40m,GT20m G Codes Necessary: BUDDY Rudd HIV PREVENTION SPECIALIST Aug 01, 2018 12:13
--- NOTE | 2018-08-01 15:11 | Physical Therapy Daily Note ---
PT Daily Note-Current Subjective Pt. agreed to Rx but warns that he is in pain at 8/10 pain in his left shoulder and not sure now much he can tolerate. Requested pain meds of nurse, which were given Pain Numeric Pain Scale: 8 Location: Left Location Body Site: Shoulder Pain Description: Stabbing Mental Status Patient Orientation: Normal For Age Transfers Functional [place] Measure 0=Not Assessed/NA 4=Minimal Assistance 1=Total Assistance 5=Supervision or Setup 2=Maximal Assistance 6=Modified [place] 3=Moderate Assistance 7=Complete IndependenceIRFPAI Quality Coding Scale 6 Independent with activity with or without an assistive device 5 Patient requires set up or clean up by helper. Patient completes activity by themselves 4 Supervision or touching assist (CGA). [place] provide cues , steadying assist 3 The helper provides less than half the effort to complete the activity 2 The helper provides more than half the effort to complete the activity 1 Dependent. The helper does all the effort to complete an activity 7 Patient refused to complete or attempt activity 9 The patient did not perform the activity before the current illness or injury 88 Not attempted due to Medical conditions or safety concerns all TRFs mod I to SBA Weight Bearing Right Lower Extremity: Right Full Weight Bearing Left Lower Extremity: Left Full Weight Bearing Gait Training Gait Assistive Device: Walker [place] (slow gait CGA, good safe sequence used with davidson walker 150 ft x 2 no LOB) Treatments attempted PROM left shoulder for abduction and flexion with poor tolerance, approx 45 degrees of abd and 40 degrees of flexion with pt resisting, becoming diaphoretic and grimacing. Ice pack applied to shoulder after Rx in supine with pt. instantly noting some relief. Assessment Current Status: Fair Progress pain in left shoulder greatly limits participation PT Short Term Goals Short Term Goals Time Frame: Aug 01, 2018 Transfers (B,C,W/C) (FIM): 5 (met) Gait (FIM): 5 (met) Gait Distance Comment: 200' Gait Level of Assist: 5 Gait Assistive Device: FWW PT Orientor Goals Orientor Goals PT Alf Goals Time Frame: Aug 15, 2018 Transfers (B,C,W/C) (FIM): 6 Sit to Lying (QC): 6 Lying-Sitting on Side/Bed(QC): 6 Sit to Stand (QC): 6 Rollin Roll Left to Right (QC): 6 Chair/Mkj-kc-Advek Xfer(QC): 6 Car Transfer (QC): 6 Gait (FIM): 6 Distance: 300' Walk 10 feet (QC): 6 Walk 10ft-Uneven Surface(QC): 6 Walk 50ft with 2 Turns (QC): 6 Walk 150 ft (QC): 6 Gait Level of Assist: 6 Gait Assistive Device: FWW Stairs (FIM): 6 # of Steps: 12 1 Step (curb) (QC): 6 4 Steps (QC): 6 12 Steps (QC): 6 Stairs Level Of Assist: 6 PT Plan Treatment/Plan Treatment Plan: Continue Plan of Care (as tolerated) Treatment Plan: Bed Mobility, Education, Functional Activity [place], Functional Strength, Group Therapy, Gait, Safety, Therapeutic Exercise, Transfers Treatment Duration: Aug 15, 2018 Frequency: At least 5 of 7 days/Wk (IRF) Estimated Hrs Per Day: 1.5 hours per day Patient and/or Family Agrees t: Yes Safety Risks/Education Patient Education: Gait Training, Correct Positioning, Disease Process, Safety Issues Teaching Recipient: Patient Teaching Methods: Demonstration, Discussion Response to Teaching: Verbalize Understanding, Return Demonstration Time/GCodes Time In: 1430 Time Out: 1500 Total Billed Treatment Time: 30 Total Billed Treatment 1,EX20m,GT10m G Codes Necessary: BUDDY Rudd CURVE SAW OPERATOR Aug 01, 2018 15:11
[2018-08-01] MEDS: ENOXAPARIN 40 MG/0.4 ML (LOVENOX) SYR SC SCH (17:07)
[2018-08-01 18:00] VITALS: BP 115/75
[2018-08-01] MEDS: QUEtiapine 25 MG (SEROquel) TAB IMMEDIATE RELEASE PO PRN (20:47)
[2018-08-02 06:00] VITALS: BP 114/78
[2018-08-02] MEDS: NICOTINE PATCH REMOVAL TP SCH (07:50)
[2018-08-02] MEDS: NICOTINE 21 MG (NICODERM) PATCH TD SCH (07:50)
[2018-08-02] MEDS: oxyCODONE/APAP 10/325MG (PERCOCET 10) TABLET PO PRN ×3 (07:50→20:13)
[2018-08-02] MEDS: GABAPENTIN 300 MG (NEURONTIN) CAP PO SCH ×3 (07:50→20:13)
--- NOTE | 2018-08-02 08:03 | Progress Note (SOAP) ---
Subjective Time Seen by a Provider: 07:59 Subjective/Events-last exam Patient feels he is improving. Low back less pain. Left shoulder less discomfort. Patient still has limitation of movement of left upper arm. Objective Exam Vital Signs Date Time Temp Pulse Resp B/P (MAP) Pulse Ox O2 Delivery O2 Flow Rate FiO2 08/02/18 06:00 96.5 88 16 114/78 (90) 98 Room Air 08/01/18 21:00 Room Air 08/01/18 18:00 98.0 86 18 115/75 (88) 98 Room Air 08/01/18 09:00 Room Air I & O 08/02/18 07:00 Intake Total 2000 ml Output Total 3075 ml Balance -1075 ml Capillary Refill : NONE General Appearance: No Apparent Distress, WD/WN HEENT: Normal ENT Inspection Neck: Full Range of Motion, Normal Inspection Respiratory: Lungs Clear, No Accessory Muscle Use, No Respiratory Distress Cardiovascular: Regular Rate, Rhythm, No Murmur Gastrointestinal: non tender, soft Results Lab Laboratory Tests 08/01/18 08:30: Total Bilirubin 0.4, Direct Bilirubin 0.2, Indirect Bilirubin 0.2, Aspartate Amino Transf (AST/SGOT) 17, Alanine Aminotransferase (ALT/SGPT) 44, Alkaline Phosphatase 145H, Total Protein 8.1, Albumin 4.1 Assessment/Plan Assessment/Plan Assess & Plan/Chief Complaint Lumbar radiculopathy. Elevated liver tests. Hypothyroid. Tobaccoism. . 07/27/18. Lumbar radiculopathy. Elevated liver tests. Hypothyroid. Tobaccoism. Patient having low back pain today. . 07/30/18. Lumbar radiculopathy. Elevated liver tests. Hypothyroid. Tobaccoism. Patient had pain in the left shoulder in a certain point. . 07/31/18. Lumbar radiculopathy. Elevated liver tests. Hypothyroid. Left shoulder pain. To have an MRI. Insomnia Patient received Seroquel. . 08/01/18. Lumbar radiculopathy. Elevated liver tests. Hypothyroid. Left shoulder pain due to care. Insomnia. . 08/02/18. Liver tests normal now. Lumbar radiculopathy. Hypothyroid. Left shoulder pain better. Patient still has limitation in movement. Insomnia Clinical Quality Measures DVT/VTE Risk/Contraindication: Risk Factor Score Per Nursin RFS Level Per Nursing on Admit: 2=Moderate CRISTHIAN DEL TORO DO Aug 02, 2018 08:03
--- NOTE | 2018-08-02 08:19 | PM & R (SOAP) Progress Note ---
Subjective This was a face to face visit with the patient. Date Seen by Provider: Aug 02, 2018 Time Seen by Provider: 08:00 Subjective/Events-last exam Patient was seen in his room this AM Pain control better ROM and tenderness left shoulder slowly improving.Patient Min assist for gait with hemiwalker Review of Systems Musculoskeletal: shoulder pain Objective Physician Exam Last Set of Vital Signs Vital Signs Date Time Temp Pulse Resp B/P (MAP) Pulse Ox O2 Delivery O2 Flow Rate FiO2 08/02/18 06:00 96.5 88 16 114/78 (90) 98 Room Air Capillary Refill : NONE I&O Intake and Output 08/02/18 00:00 Intake Total 2570 ml Output Total 3600 ml Balance -1030 ml Intake Oral 2570 ml Output Urine Total 3600 ml # Bowel Movements 1 General: Alert, Oriented X3, Cooperative, No Acute Distress, Other (c/o rt leg weakness and pain) HEENT: Atraumatic, PERRLA, EOMI, Mucous Memb Moist/[place] Neck: Supple, No JVD Lungs: Clear to Auscultation Heart: Regular Rate Abdomen: Normal Bowel Sounds, Soft, No Tenderness Extremities: No Edema, Other (Left shoulder with diffuse tenderness with increased pain and guarding with movement) Skin: No Rashes, No Breakdown, No Significant Lesion Neuro: Other (and weakness RLE 1to 2/5 on the left 4/5) Psych/Mental Status: Mental Status NL Results Lab Data Laboratory Tests 08/01/18 08:30: Total Bilirubin 0.4, Direct Bilirubin 0.2, Indirect Bilirubin 0.2, Aspartate Amino Transf (AST/SGOT) 17, Alanine Aminotransferase (ALT/SGPT) 44, Alkaline Phosphatase 145H, Total Protein 8.1, Albumin 4.1 Assessment/Plan Assessment and Plan 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
--- NOTE | 2018-08-02 12:06 | Physical Therapy Daily Note ---
PT Daily Note-Current Subjective Pt laying supine in bed upon arrival. Pt agrees to PT. Pain Numeric Pain Scale: 5-Moderate Pain Location: Left Location Body Site: Shoulder Pain Description: Ache Mental Status Patient Orientation: Person, Place, Time, Situation Attachments: Other-See Comments (Sling for LUE) Transfers Functional [place] Measure 0=Not Assessed/NA 4=Minimal Assistance 1=Total Assistance 5=Supervision or Setup 2=Maximal Assistance 6=Modified [place] 3=Moderate Assistance 7=Complete IndependenceIRFPAI Quality Coding Scale 6 Independent with activity with or without an assistive device 5 Patient requires set up or clean up by helper. Patient completes activity by themselves 4 Supervision or touching assist (CGA). [place] provide cues , steadying assist 3 The helper provides less than half the effort to complete the activity 2 The helper provides more than half the effort to complete the activity 1 Dependent. The helper does all the effort to complete an activity 7 Patient refused to complete or attempt activity 9 The patient did not perform the activity before the current illness or injury 88 Not attempted due to Medical conditions or safety concerns Scootin Rollin Supine to/from Sit: 6 Sit to/from Stand: 6 Weight Bearing Right Lower Extremity: Right Full Weight Bearing Left Lower Extremity: Left Full Weight Bearing Gait Training Does the Patient Walk?: Yes Distance (FIM): 3=150 ft Distance: 150 Gait Level of Assist: 6 Gait Persons Needed: 1 Gait Assistive Device: Walker Davidson Exercises Supine Ex: Ankle pumps, Quad Set, Glut sets, Heel Slides, Short Arc Quads, Straight leg raise, Hip abd/add Supine Reps: 20 Standing: Hip Abduction, Hamstring curls, Heel/toe raises, Marching, Mini squats Standing Reps: 20 NuStep Minutes: 10 NuStep Workload: 5 Treatments Pt completed supine Ex in bed before ambulating to Therapy Gym using a davidson walker. Pt preformed Nustep for 10m with a WF of 5. Pt completed standing EX at // bars before ambulating back to room. Pt was in bed and all needs were met. Assessment Pt c/o Pn in left shoulder and low back at a rate of 5/10. Pt completes exercises without using L UE. PT Short Term Goals Short Term Goals Time Frame: Aug 01, 2018 Transfers (B,C,W/C) (FIM): 5 (met) Gait (FIM): 5 (met) Gait Distance Comment: 200' Gait Level of Assist: 5 Gait Assistive Device: FWW PT Production Mechanic Tin Cans Goals Production Mechanic Tin Cans Goals PT Detention Goals Time Frame: Aug 15, 2018 Transfers (B,C,W/C) (FIM): 6 Sit to Lying (QC): 6 Lying-Sitting on Side/Bed(QC): 6 Sit to Stand (QC): 6 Rollin Roll Left to Right (QC): 6 Chair/Awp-fv-Piofc Xfer(QC): 6 Car Transfer (QC): 6 Gait (FIM): 6 Distance: 300' Walk 10 feet (QC): 6 Walk 10ft-Uneven Surface(QC): 6 Walk 50ft with 2 Turns (QC): 6 Walk 150 ft (QC): 6 Gait Level of Assist: 6 Gait Assistive Device: FWW Stairs (FIM): 6 # of Steps: 12 1 Step (curb) (QC): 6 4 Steps (QC): 6 12 Steps (QC): 6 Stairs Level Of Assist: 6 PT Plan Problem List Problem List: Activity Tolerance, Functional Strength Treatment/Plan Treatment Plan: Continue Plan of Care Treatment Plan: Bed Mobility, Education, Functional Activity Wilfrido, Functional Strength, Group Therapy, Gait, Safety, Therapeutic Exercise, Transfers Treatment Duration: Aug 15, 2018 Frequency: At least 5 of 7 days/Wk (IRF) Estimated Hrs Per Day: 1.5 hours per day Patient and/or Family Agrees t: Yes Safety Risks/Education Patient Education: Safety Issues Teaching Recipient: Patient Teaching Methods: Discussion Response to Teaching: Verbalize Understanding Time/GCodes Time In: 1100 Time Out: 1200 Total Billed Treatment Time: 60 Total Billed Treatment 1, GT (15m) EX x3 (45m) BERNADETTE FAN TRACK REPAIRER Aug 02, 2018 12:06
--- NOTE | 2018-08-02 12:52 | Occupational Ther Daily Note ---
OT Current Status-Daily Note Subjective Pt. reports pain of 7/10 in his back, and 8/10 in left shoulder. Nursing has notified pt. that he is not due anymore pain medication yet. Pt. states that this "upsets" him. Appearance Pt in bed, alert, and ready to work with OT. Mental Status/Objective Patient Orientation: Person, Place, Time, Situation Functional [place] Measure 0=Not Assessed/NA 4=Minimal Assistance 1=Total Assistance 5=Supervision or Setup 2=Maximal Assistance 6=Modified [place] 3=Moderate Assistance 7=Complete [place] Attachments: IV ADL-Treatment Functional [place] Measure 0=Not Assessed/NA 4=Minimal Assistance 1=Total Assistance 5=Supervision or Setup 2=Maximal Assistance 6=Modified [place] 3=Moderate Assistance 7=Complete IndependenceIRFPAI Quality Coding Scale 6 Independent with activity with or without an assistive device 5 Patient requires set up or clean up by helper. Patient completes activity by themselves 4 Supervision or touching assist (CGA). [place] provide cues , steadying assist 3 The helper provides less than half the effort to complete the activity 2 The helper provides more than half the effort to complete the activity 1 Dependent. The helper does all the effort to complete an activity 7 Patient refused to complete or attempt activity 9 The patient did not perform the activity before the current illness or injury 88 Not attempted due to Medical conditions or safety concerns Grooming (FIM): 6 (Pt able to shave face and brush teeth with SBA for safety concerns while standing at the sink.) Bathing (FIM): 6 (Pt able to wash all body parts with setup and SBA in shower.) Upper Body (FIM): 5 (Pt able to don and doff shirt with SBA/set up. OT provides verbal reminders about back precautions. ) Lower Body Dressing (FIM): 5 (Pt able to doff and don shorts and slipper socks with setup and SBA. Pt. uses grab bars for standing to pull up shorts. OT provided verbal reminder of back precautions. Pt requires setup. Safety concerns. ) Transfers (B, C, W/C) (FIM): 5 (Pt able to transfer supine to sit with SBA. Pt able to transfer from sit to stand with boyd cane with SBA for safety concerns. ) Shower Transfer(FIM): 6 (Pt able to transfer from stand to sit on shower bench and grab bars with SBA for safety concerns. Pt able to transfer from shower bench to stand to boyd cane with SBA.) Pt able to ambulate to bathroom for shower with SBA for safety concerns using boyd cane. Pt able to shower with setup. Pt requested to shave, which he completed at sink standing with SBA. Pt ambulated to laundry room to washing machine to wash his clothing with SBA. Pt able to complete task of putting clothing into washer and starting washer. Pt ambulated to therapy gym with boyd cane with SBA for safety concerns. Pt. is educated about nature of injured shoulder. Pt. allows OT to provide very gentle PROM to left shoulder in flexion and slight extension. Pt. able to tolerate approximately 45 degrees of flexion. However, pt. very guarded with this movement and verbalizes pain. OT allows shoulder to rest and move as he can tolerate. Pt. is able to don sling with min assist and ambulate back to room with CGA. All needs met and pt. awaiting PT. Education OT Patient Education: Correct positioning, Exercise program, Modified ADL techniques, Progress toward Goal/Update tx plan, Purpose of tx/functional activities, Reviewed precautions, Rehab process, Safety issues, Transfer techniques Teaching Recipient: Patient Teaching Methods: Demonstration, Discussion Response to Teaching: Verbalize Understanding, Return Demonstration OT Short Term Goals Short Term Goals Transfers (B,C,W/C) (FIM): 5 (met) 1=Demonstrate adherence to instructed precautions during ADL tasks. 2=Patient will verbalize/demonstrate understanding of assistive devices/ modifications for ADL. 3=Patient will improve strength/tolerance for activity to enable patient to perform ADL's. OT Assisted Goals Assisted Goals Time Frame: Aug 08, 2018 Eating (FIM): 6 Eating (QC): 6 Groomin Oral Hygiene (QC): 6 Bathing(FIM): 6 Shower/Bathe Self (QC): 6 Upper Body Dressing(FIM): 6 Upper Body Dressing (QC): 6 Lower Body Dressing(FIM): 6 Lower Body Dressing (QC): 6 On/Off Footwear (QC): 6 Toileting(FIM): 6 Toileting Hygiene (QC): 6 Transfers (B,C,W/C) (FIM): 6 Toilet/Commode Transfer(FIM): 6 Toilet/Commode Transfer (QC): 6 Shower Transfer(FIM): 6 Additional Goals: 1-Demonstrate ADL Tasks, 2-Verbalize Understanding, 3- ImproveStrength/[place] 1=Demonstrate adherence to instructed precautions during ADL tasks. 2=Patient will verbalize/demonstrate understanding of assistive devices/ modifications for ADL. 3=Patient will improve strength/tolerance for activity to enable patient to perform ADL's. OT Education/Plan Problem List/Assessment Assessment: Decreased Activ Tolerance, Decreased Safety Aware, Decreased UE Strength, Impaired I ADL's, Impaired Self-Care Skills, Restricted Funct UE ROM Discharge Recommendations Plan/Recommendations: Continue POC Therapy D/C Recommendations: Home w/ Family Support Treatment Plan/Plan of Care Treatment,Training & Education: Yes Patient would benefit from OT for education, treatment and training to promote independence in ADL's, mobility, safety and/or upper extremity function for ADL' s. Plan of Care: ADL Retraining, Functional Mobility, Group Exercise/Act as Ind Treatment Duration: Aug 08, 2018 Frequency: At least 5 of 7 days/Wk (IRF) Estimated Hrs Per Day: 1.5 hours per day Agreement: Yes Rehab Potential: Good Time/GCodes Start Time: 09:20 Stop Time: 10:50 Total Time Billed (hr/min): 90 Billed Treatment Time 1, ADL x 75 minutes, EX x 15 minutes. IMELDA FLORES OT Aug 02, 2018 12:52
--- NOTE | 2018-08-02 15:01 | Physical Therapy Daily Note ---
PT Daily Note-Current Subjective Pt laying Supine in bed upon arrival. Pt agrees to PT. Mental Status Patient Orientation: Person, Place, Time Transfers Functional [place] Measure 0=Not Assessed/NA 4=Minimal Assistance 1=Total Assistance 5=Supervision or Setup 2=Maximal Assistance 6=Modified [place] 3=Moderate Assistance 7=Complete IndependenceIRFPAI Quality Coding Scale 6 Independent with activity with or without an assistive device 5 Patient requires set up or clean up by helper. Patient completes activity by themselves 4 Supervision or touching assist (CGA). [place] provide cues , steadying assist 3 The helper provides less than half the effort to complete the activity 2 The helper provides more than half the effort to complete the activity 1 Dependent. The helper does all the effort to complete an activity 7 Patient refused to complete or attempt activity 9 The patient did not perform the activity before the current illness or injury 88 Not attempted due to Medical conditions or safety concerns Weight Bearing Right Lower Extremity: Right Full Weight Bearing Left Lower Extremity: Left Full Weight Bearing Exercises Supine Ex: Ankle pumps, Quad Set (2 sets), Glut sets, Heel Slides (2 sets), Short Arc Quads, Straight leg raise, Hip abd/add Supine Reps: 20 Treatments Pt completed supine exercises with rest breaks between. Pt remained in bed after Tx with all needs met. Assessment Pt completed Ex without increased Pn. PT Short Term Goals Short Term Goals Time Frame: Aug 01, 2018 Transfers (B,C,W/C) (FIM): 5 (met) Gait (FIM): 5 (met) Gait Distance Comment: 200' Gait Level of Assist: 5 Gait Assistive Device: FWW PT Correction Goals Servicenow Administrator Developer Goals PT Correction Goals Time Frame: Aug 15, 2018 Transfers (B,C,W/C) (FIM): 6 Sit to Lying (QC): 6 Lying-Sitting on Side/Bed(QC): 6 Sit to Stand (QC): 6 Rollin Roll Left to Right (QC): 6 Chair/Ufo-zz-Imlqg Xfer(QC): 6 Car Transfer (QC): 6 Gait (FIM): 6 Distance: 300' Walk 10 feet (QC): 6 Walk 10ft-Uneven Surface(QC): 6 Walk 50ft with 2 Turns (QC): 6 Walk 150 ft (QC): 6 Gait Level of Assist: 6 Gait Assistive Device: FWW Stairs (FIM): 6 # of Steps: 12 1 Step (curb) (QC): 6 4 Steps (QC): 6 12 Steps (QC): 6 Stairs Level Of Assist: 6 PT Plan Problem List Problem List: Activity Tolerance, Functional Strength Treatment/Plan Treatment Plan: Continue Plan of Care Treatment Plan: Bed Mobility, Education, Functional Activity [place]fr[place], Functional Strength, Group Therapy, Gait, Safety, Therapeutic Exercise, Transfers Treatment Duration: Aug 15, 2018 Frequency: At least 5 of 7 days/Wk (IRF) Estimated Hrs Per Day: 1.5 hours per day Patient and/or Family Agrees t: Yes Safety Risks/Education Patient Education: Correct Positioning, Safety Issues Teaching Recipient: Patient Teaching Methods: Discussion Response to Teaching: Verbalize Understanding Time/GCodes Time In: 1430 Time Out: 1500 Total Billed Treatment Time: 30 Total Billed Treatment 1, Ex x2 (30m) G Codes Necessary: BERNADETTE Amin MAYONNAISE MIXER Aug 02, 2018 15:01
[2018-08-02] MEDS: ENOXAPARIN 40 MG/0.4 ML (LOVENOX) SYR SC SCH (17:09)
[2018-08-02] MEDS: CYCLOBENZAPRINE 10 MG (FLEXERIL) TAB PO PRN (17:10)
[2018-08-02 17:48] VITALS: BP 130/84
[2018-08-02] MEDS: QUEtiapine 25 MG (SEROquel) TAB IMMEDIATE RELEASE PO PRN (22:55)
[2018-08-03 05:01] VITALS: BP 127/73
--- NOTE | 2018-08-03 08:00 | Progress Note (SOAP) ---
Subjective Time Seen by a Provider: 07:58 Subjective/Events-last exam Patient doing better. Patient moving legs better. Left shoulder less pain. Patient still having difficulty in moving left arm. Patient positive today Objective Exam Vital Signs Date Time Temp Pulse Resp B/P (MAP) Pulse Ox O2 Delivery O2 Flow Rate FiO2 08/03/18 05:01 97.4 73 16 127/73 (91) 97 Room Air 08/02/18 21:53 Room Air 08/02/18 17:48 97.7 97 14 130/84 (99) 97 Room Air 08/02/18 08:33 Room Air I & O 08/03/18 07:00 Intake Total 2055 ml Output Total 4550 ml Balance -2495 ml Capillary Refill : NONE General Appearance: No Apparent Distress, WD/WN Assessment/Plan Assessment/Plan Assess & Plan/Chief Complaint Lumbar radiculopathy. Elevated liver tests. Hypothyroid. Tobaccoism. . 07/27/18. Lumbar radiculopathy. Elevated liver tests. Hypothyroid. Tobaccoism. Patient having low back pain today. . 07/30/18. Lumbar radiculopathy. Elevated liver tests. Hypothyroid. Tobaccoism. Patient had pain in the left shoulder in a certain point. . 07/31/18. Lumbar radiculopathy. Elevated liver tests. Hypothyroid. Left shoulder pain. To have an MRI. Insomnia Patient received Seroquel. . 08/01/18. Lumbar radiculopathy. Elevated liver tests. Hypothyroid. Left shoulder pain due to care. Insomnia. . 08/02/18. Liver tests normal now. Lumbar radiculopathy. Hypothyroid. Left shoulder pain better. Patient still has limitation in movement. Insomnia. . 08/03/18. Patient doing better. Lumbar radiculopathy better. Hypothyroid. Left shoulder doing better. Liver tests better. Insomnia better Clinical Quality Measures DVT/VTE Risk/Contraindication: Risk Factor Score Per Nursin RFS Level Per Nursing on Admit: 2=Moderate CRISTHIAN DEL TORO DO Aug 03, 2018 08:00
--- NOTE | 2018-08-03 08:28 | PM & R (SOAP) Progress Note ---
Subjective This was a face to face visit with the patient. Date Seen by Provider: Aug 03, 2018 Time Seen by Provider: 07:50 Subjective/Events-last exam Patient was seen in his room this AM Patient Modified Independent for transfers Pain and tenderness/swelling left shoulder improving. Review of Systems Musculoskeletal: shoulder pain Objective Physician Exam Last Set of Vital Signs Vital Signs Date Time Temp Pulse Resp B/P (MAP) Pulse Ox O2 Delivery O2 Flow Rate FiO2 08/03/18 05:01 97.4 73 16 127/73 (91) 97 Room Air Capillary Refill : NONE I&O Intake and Output 08/03/18 00:00 Intake Total 1675 ml Output Total 3325 ml Balance -1650 ml Intake Oral 1675 ml Output Urine Total 3325 ml # Bowel Movements 1 General: Alert, Oriented X3, Cooperative, No Acute Distress, Other (c/o rt leg weakness and pain) HEENT: Atraumatic, PERRLA, EOMI, Mucous Memb Moist/[place] Neck: Supple, No JVD Lungs: Clear to Auscultation Heart: Regular Rate Abdomen: Normal Bowel Sounds, Soft, No Tenderness Extremities: No Edema, Other (Left shoulder with diffuse tenderness with increased pain and guarding with movement) Skin: No Rashes, No Breakdown, No Significant Lesion Neuro: Other (and weakness RLE 1to 2/5 on the left 4/5) Psych/Mental Status: Mental Status NL Results Lab Data Laboratory Tests 08/01/18 08:30: Total Bilirubin 0.4, Direct Bilirubin 0.2, Indirect Bilirubin 0.2, Aspartate Amino Transf (AST/SGOT) 17, Alanine Aminotransferase (ALT/SGPT) 44, Alkaline Phosphatase 145H, Total Protein 8.1, Albumin 4.1 Assessment/Plan Assessment and Plan DDD Lumbar spine with rt foraminal stenosis and radicular pain rt leg improving Acute left rotator cuff tear improving gradually-Continue PT/OT PROME and sling prn as well as pain Management HX of polysubstance abuse Tobaccoism smoking cessation Dental pain resolved DVT prophylaxis on Lovenox subcut Plan Continue Pt/OT/pain management F/U with SW re tentative discharge date F/U with ortho on an Outpatient basis Co-Morbidities that are continuing to impact the rehab process: (include details ) JEOVANY COUGHLIN MD Aug 03, 2018 08:27
[2018-08-03] MEDS: NICOTINE 21 MG (NICODERM) PATCH TD SCH (08:42)
[2018-08-03] MEDS: GABAPENTIN 300 MG (NEURONTIN) CAP PO SCH ×3 (08:42→19:50)
[2018-08-03] MEDS: NICOTINE PATCH REMOVAL TP SCH ×2 (08:42→19:50)
[2018-08-03] MEDS: oxyCODONE/APAP 10/325MG (PERCOCET 10) TABLET PO PRN ×3 (08:43→20:43)
--- NOTE | 2018-08-03 11:10 | Physical Therapy Daily Note ---
PT Daily Note-Current Subjective Pt. agrees to Rx. States the stretching exercises do help his back and right leg , states he isnt having any left shoulder pain today. States he would like to go home if he had out patient therapy services and a Dr. Pt. states he has some "mental issues" repeatedly during rx. Pain Numeric Pain Scale: 3 Location: Left Location Body Site: Shoulder Pain Description: Ache Mental Status Patient Orientation: Normal For Age difficult to follow /make sense of pts. varied complaints . Transfers Functional [place] Measure 0=Not Assessed/NA 4=Minimal Assistance 1=Total Assistance 5=Supervision or Setup 2=Maximal Assistance 6=Modified [place] 3=Moderate Assistance 7=Complete IndependenceIRFPAI Quality Coding Scale 6 Independent with activity with or without an assistive device 5 Patient requires set up or clean up by helper. Patient completes activity by themselves 4 Supervision or touching assist (CGA). [place] provide cues , steadying assist 3 The helper provides less than half the effort to complete the activity 2 The helper provides more than half the effort to complete the activity 1 Dependent. The helper does all the effort to complete an activity 7 Patient refused to complete or attempt activity 9 The patient did not perform the activity before the current illness or injury 88 Not attempted due to Medical conditions or safety concerns Transfers (B, C, W/C) (FIM): 6 Scootin Rollin Supine to/from Sit: 6 Sit to/from Stand: 6 Weight Bearing Right Lower Extremity: Right Full Weight Bearing Left Lower Extremity: Left Full Weight Bearing Gait Training Does the Patient Walk?: Yes Gait (FIM): 5 Distance (FIM): 3=150 ft (200x2) Gait Level of Assist: 5 Gait Persons Needed: 1 Gait Assistive Device: Walker Davidson needs cues and instruction for gait pattern and sequence with davidson walker, as well as for back protection and not twisting etc, prudent back care etc Exercises Supine Ex: Ankle pumps, Quad Set, Rolling, Glut sets, Heel Slides, Hip abd/add Supine Reps: 15 NuStep Minutes: 12 NuStep Workload: 5 Treatments instructed in seated hamstring stretches, and back care as well as gait without AD per pt. request at rail in hallway. Pt. then understood he is safer with the device. Pts gait pattern changes several times during a Rx Assessment Current Status: Good Progress much less c/o pain in RLE and back, gait with no LOB or threat of this this Rx PT Short Term Goals Short Term Goals Time Frame: Aug 01, 2018 Transfers (B,C,W/C) (FIM): 5 (met) Gait (FIM): 5 (met) Gait Distance Comment: 200' Gait Level of Assist: 5 Gait Assistive Device: FWW PT Reinforcing Bar Setter Goals Reinforcing Bar Setter Goals PT Intermediate Goals Time Frame: Aug 15, 2018 Transfers (B,C,W/C) (FIM): 6 Sit to Lying (QC): 6 Lying-Sitting on Side/Bed(QC): 6 Sit to Stand (QC): 6 Rollin Roll Left to Right (QC): 6 Chair/Xid-yc-Cyett Xfer(QC): 6 Car Transfer (QC): 6 Gait (FIM): 6 Distance: 300' Walk 10 feet (QC): 6 Walk 10ft-Uneven Surface(QC): 6 Walk 50ft with 2 Turns (QC): 6 Walk 150 ft (QC): 6 Gait Level of Assist: 6 Gait Assistive Device: FWW Stairs (FIM): 6 # of Steps: 12 1 Step (curb) (QC): 6 4 Steps (QC): 6 12 Steps (QC): 6 Stairs Level Of Assist: 6 PT Plan Treatment/Plan Treatment Plan: Continue Plan of Care Treatment Plan: Bed Mobility, Education, Functional Activity Wilfr[place], Functional Strength, Group Therapy, Gait, Safety, Therapeutic Exercise, Transfers Treatment Duration: Aug 15, 2018 Frequency: At least 5 of 7 days/Wk (IRF) Estimated Hrs Per Day: 1.5 hours per day Patient and/or Family Agrees t: Yes Safety Risks/Education Patient Education: Gait Training, Transfer Techniques, Correct Positioning, Disease Process, Safety Issues Teaching Recipient: Patient Teaching Methods: Demonstration, Discussion Response to Teaching: Verbalize Understanding, Return Demonstration, Reinforcement Needed stretching instruction, back safety instruction for no rotation etc Time/GCodes Time In: 1000 Time Out: 1100 Total Billed Treatment Time: 60 Total Billed Treatment 1,EX30m,FA15m,GT15m G Codes Necessary: BUDDY Rudd FINANCIAL ADVISOR TRAINEE Aug 03, 2018 11:09
[2018-08-03] MEDS: DICLOFENAC 1% GEL 100 GM (VOLTAREN) TUBE TOP PRN ×2 (12:40→18:23)
--- NOTE | 2018-08-03 14:26 | Therapy Group Daily Note ---
Therapy Daily Group Note Patient Education Topic Other List Below Exercises LE Seated Exercise Other/Notes Pt was an active participant in OT/PT group. He introduced himself appropriately and contributed to education/discussion on transfers (bed, chair, floor), with return demonstration of safe chair transfer. He also did seated LE exercises that he could do this weekend while up in a chair. He walked back to his room with boyd walker, SBA with all needs met. Start Time: 13:00 Stop Time: 14:10 Total Billed Treatment Time: 70 Total Billed Treatment visit, 70 minutes group CHRISTAL BADILLO OT Aug 03, 2018 14:26
--- NOTE | 2018-08-03 14:44 | Occupational Ther Daily Note ---
OT Current Status-Daily Note Subjective Pt seen in room, up in recliner, agreeable to OT. No pain mentioned Appearance Alert, cooperative Mental Status/Objective Functional [place] Measure 0=Not Assessed/NA 4=Minimal Assistance 1=Total Assistance 5=Supervision or Setup 2=Maximal Assistance 6=Modified [place] 3=Moderate Assistance 7=Complete [place] ADL-Treatment Pt voiced that he is interested in going home early next week. He will have L rotator cuff repair surgery as an outpatient. He mentioned that the injection he got in his shoulder worked really well. He demonstrated that he had active shoulder flex and hyperextension but no abduction. He did not want to shower since he had a shower yesterday but did want to wash up at the sink and change clothes. He got up from the chair, walked to the bathroom (SBA, boyd walker), washed face and hands, groomed, returned to bed and dressed himself ( transporting clothes on walker). All mod I with mild safety concerns. He was able to use L UE for balance at countertop and turned water on/off with it. He also took his laundry to be washed and demonstrated good body mechanics for loading/transferring clothing. All ADLs took longer than usual. Functional [place] Measure 0=Not Assessed/NA 4=Minimal Assistance 1=Total Assistance 5=Supervision or Setup 2=Maximal Assistance 6=Modified [place] 3=Moderate Assistance 7=Complete IndependenceIRFPAI Quality Coding Scale 6 Independent with activity with or without an assistive device 5 Patient requires set up or clean up by helper. Patient completes activity by themselves 4 Supervision or touching assist (CGA). [place] provide cues , steadying assist 3 The helper provides less than half the effort to complete the activity 2 The helper provides more than half the effort to complete the activity 1 Dependent. The helper does all the effort to complete an activity 7 Patient refused to complete or attempt activity 9 The patient did not perform the activity before the current illness or injury 88 Not attempted due to Medical conditions or safety concerns Grooming (FIM): 6 Upper Body (FIM): 6 Lower Body Dressing (FIM): 6 Other Treatment He walked to the gym with SBA, boyd walker and completed 11 minutes R UE exercise on arm bike set at 20W resistance (increased time and resistance). To strengthen arm to help with safe walking and ADLs. He returned to his room and was left up in his recliner to order lunch, all needs met. Education OT Patient Education: Exercise program, Progress toward Goal/Update tx plan, Purpose of tx/functional activities, Safety issues Teaching Recipient: Patient Teaching Methods: Demonstration, Discussion Response to Teaching: Verbalize Understanding, Return Demonstration OT Short Term Goals Short Term Goals Transfers (B,C,W/C) (FIM): 5 (met) 1=Demonstrate adherence to instructed precautions during ADL tasks. 2=Patient will verbalize/demonstrate understanding of assistive devices/ modifications for ADL. 3=Patient will improve strength/tolerance for activity to enable patient to perform ADL's. OT [facility] Goals [facility] Goals Time Frame: Aug 08, 2018 Eating (FIM): 6 Eating (QC): 6 Groomin Oral Hygiene (QC): 6 Bathing(FIM): 6 Shower/Bathe Self (QC): 6 Upper Body Dressing(FIM): 6 Upper Body Dressing (QC): 6 Lower Body Dressing(FIM): 6 Lower Body Dressing (QC): 6 On/Off Footwear (QC): 6 Toileting(FIM): 6 Toileting Hygiene (QC): 6 Transfers (B,C,W/C) (FIM): 6 Toilet/Commode Transfer(FIM): 6 Toilet/Commode Transfer (QC): 6 Shower Transfer(FIM): 6 Additional Goals: 1-Demonstrate ADL Tasks, 2-Verbalize Understanding, 3- ImproveStrength/[place] 1=Demonstrate adherence to instructed precautions during ADL tasks. 2=Patient will verbalize/demonstrate understanding of assistive devices/ modifications for ADL. 3=Patient will improve strength/tolerance for activity to enable patient to perform ADL's. OT Education/Plan Discharge Recommendations Plan/Recommendations: Continue POC Treatment Plan/Plan of Care Patient would benefit from OT for education, treatment and training to promote independence in ADL's, mobility, safety and/or upper extremity function for ADL' s. Plan of Care: ADL Retraining, Functional Mobility, Group Exercise/Act as Ind Treatment Duration: Aug 08, 2018 Frequency: At least 5 of 7 days/Wk (IRF) Estimated Hrs Per Day: 1.5 hours per day Agreement: Yes Rehab Potential: Good Time/GCodes Start Time: 11:00 Stop Time: 12:00 Total Time Billed (hr/min): 60 Billed Treatment Time visit, 40 minuted ADL, 20 minutes exercise. CHRISTAL BADILLO OT Aug 03, 2018 14:44
[2018-08-03] MEDS: ENOXAPARIN 40 MG/0.4 ML (LOVENOX) SYR SC SCH (18:14)
[2018-08-03 18:15] VITALS: BP 128/83
[2018-08-03] MEDS: CYCLOBENZAPRINE 10 MG (FLEXERIL) TAB PO PRN (19:49)
[2018-08-03] MEDS: QUEtiapine 25 MG (SEROquel) TAB IMMEDIATE RELEASE PO PRN (19:50)
[2018-08-04 05:07] VITALS: BP 117/71
[2018-08-04] MEDS: GABAPENTIN 300 MG (NEURONTIN) CAP PO SCH ×3 (08:33→20:31)
[2018-08-04] MEDS: oxyCODONE/APAP 10/325MG (PERCOCET 10) TABLET PO PRN ×3 (08:34→21:57)
[2018-08-04] MEDS: NICOTINE 21 MG (NICODERM) PATCH TD SCH (08:34)
--- NOTE | 2018-08-04 11:22 | Physical Therapy Daily Note ---
PT Daily Note-Current Subjective Pt agreeable. Pain rated 7/10 back pain, 8/10 (L) shoulder pain. Reports he has numbness in (R) LE "but it is getting better". Transfers Functional [place] Measure 0=Not Assessed/NA 4=Minimal Assistance 1=Total Assistance 5=Supervision or Setup 2=Maximal Assistance 6=Modified [place] 3=Moderate Assistance 7=Complete IndependenceIRFPAI Quality Coding Scale 6 Independent with activity with or without an assistive device 5 Patient requires set up or clean up by helper. Patient completes activity by themselves 4 Supervision or touching assist (CGA). [place] provide cues , steadying assist 3 The helper provides less than half the effort to complete the activity 2 The helper provides more than half the effort to complete the activity 1 Dependent. The helper does all the effort to complete an activity 7 Patient refused to complete or attempt activity 9 The patient did not perform the activity before the current illness or injury 88 Not attempted due to Medical conditions or safety concerns Weight Bearing Right Lower Extremity: Right Full Weight Bearing Left Lower Extremity: Left Full Weight Bearing Treatments Pt amb with HW and CGA 150ft, 75ft. Pt supine for PROM (B) LE all directions. Manual lumbar traction 5 x 10sec. PROM (L) UE all planes in tolerable ranges, near full range. ROM limited by guarding end ranges. Assessment Current Status: Good Progress Pt lia well. Pt back to bed with call light and all needs met. PT Short Term Goals Short Term Goals Time Frame: Aug 01, 2018 Transfers (B,C,W/C) (FIM): 5 (met) Gait (FIM): 5 (met) Gait Distance Comment: 200' Gait Level of Assist: 5 Gait Assistive Device: FWW PT Shelter Goals Lab Analyst Goals PT Lab Analyst Goals Time Frame: Aug 15, 2018 Transfers (B,C,W/C) (FIM): 6 Sit to Lying (QC): 6 Lying-Sitting on Side/Bed(QC): 6 Sit to Stand (QC): 6 Rollin Roll Left to Right (QC): 6 Chair/[id number] Xfer(QC): 6 Car Transfer (QC): 6 Gait (FIM): 6 Distance: 300' Walk 10 feet (QC): 6 Walk 10ft-Uneven Surface(QC): 6 Walk 50ft with 2 Turns (QC): 6 Walk 150 ft (QC): 6 Gait Level of Assist: 6 Gait Assistive Device: FWW Stairs (FIM): 6 # of Steps: 12 1 Step (curb) (QC): 6 4 Steps (QC): 6 12 Steps (QC): 6 Stairs Level Of Assist: 6 PT Plan Treatment/Plan Treatment Plan: Continue Plan of Care Treatment Plan: Bed Mobility, Education, Functional Activity [place], Functional Strength, Group Therapy, Gait, Safety, Therapeutic Exercise, Transfers Treatment Duration: Aug 15, 2018 Frequency: At least 5 of 7 days/Wk (IRF) Estimated Hrs Per Day: 1.5 hours per day Patient and/or Family Agrees t: Yes Time/GCodes Time In: 800 Time Out: 825 Total Billed Treatment Time: 25 Total Billed Treatment 1, Ex 15min, Gait 10min HASEEB TILLMAN CPTA Aug 04, 2018 11:22
--- NOTE | 2018-08-04 12:08 | Progress Note-Hospitalist ---
Subjective HPI/CC On Admission Date Seen by Provider: Aug 04, 2018 Time Seen by Provider: 11:15 Subjective/Events-last exam Patient doing well Left shoulder causes pain Overall progressing Discharge plan for Monday Bowels are moving eating and drinking well Review of Systems Musculoskeletal: shoulder pain, back pain Objective Exam Vital Signs Vital Signs Date Time Temp Pulse Resp B/P (MAP) Pulse Ox O2 Delivery O2 Flow Rate FiO2 08/04/18 08:20 Room Air 08/04/18 05:07 98.6 84 20 117/71 (86) 99 Capillary Refill : NONE General Appearance: No Apparent Distress, WD/WN, Chronically ill Respiratory: Chest Non Tender, Lungs Clear, Normal Breath Sounds, No Accessory Muscle Use, No Respiratory Distress Cardiovascular: Regular Rate, Rhythm, No Edema, No Gallop, No JVD, No Murmur, Normal Peripheral Pulses Neurologic/Psychiatric: Alert, Oriented x3, No Motor/Sensory Deficits, Normal Mood/Affect Results/Procedures Lab Patient resulted labs reviewed. Assessment/Plan Assessment and Plan Assess & Plan/Chief Complaint Assessment: Severe debilitating back pain in need of rehabilitation prior to returning home History of polysubstance abuse Chronic pain Plan: Continue current regimen Talks about pain in detail Clinical Quality Measures DVT/VTE Risk/Contraindication: Risk Factor Score Per Nursin RFS Level Per Nursing on Admit: 2=Moderate NOHEMI REDMOND DO Aug 04, 2018 12:08
[2018-08-04] MEDS: DICLOFENAC 1% GEL 100 GM (VOLTAREN) TUBE TOP PRN (12:14)
[2018-08-04] MEDS: fentaNYL INJECTION 100 MCG/2 ML AMP IVP PRN (12:26)
[2018-08-04 15:54] VITALS: BP 127/86
[2018-08-04] MEDS: ENOXAPARIN 40 MG/0.4 ML (LOVENOX) SYR SC SCH (17:29)
[2018-08-04] MEDS: CYCLOBENZAPRINE 10 MG (FLEXERIL) TAB PO PRN (20:31)
[2018-08-04] MEDS: QUEtiapine 25 MG (SEROquel) TAB IMMEDIATE RELEASE PO PRN (20:32)
[2018-08-05 05:53] VITALS: BP 128/81
[2018-08-05] MEDS: oxyCODONE/APAP 10/325MG (PERCOCET 10) TABLET PO PRN ×3 (06:06→17:44)
[2018-08-05] MEDS: GABAPENTIN 300 MG (NEURONTIN) CAP PO SCH ×3 (08:43→20:24)
[2018-08-05] MEDS: NICOTINE PATCH REMOVAL TP SCH (08:44)
[2018-08-05] MEDS: NICOTINE 21 MG (NICODERM) PATCH TD SCH (08:44)
[2018-08-05 16:48] VITALS: BP 120/83
[2018-08-05] MEDS: ENOXAPARIN 40 MG/0.4 ML (LOVENOX) SYR SC SCH (17:43)
--- NOTE | 2018-08-05 19:44 | PM & R (SOAP) Progress Note ---
Subjective This was a face to face visit with the patient. Date Seen by Provider: Aug 05, 2018 Time Seen by Provider: 19:10 Subjective/Events-last exam Patient was seen in his room this evening Patient Modified Independent for transfers with hemicane Patient with improved active flexion left shoulder with decreased pain and tenderness left shoulder Review of Systems Musculoskeletal: shoulder pain Objective Physician Exam Last Set of Vital Signs Vital Signs Date Time Temp Pulse Resp B/P (MAP) Pulse Ox O2 Delivery O2 Flow Rate FiO2 08/05/18 16:48 98.7 84 16 120/83 (95) 99 Room Air Capillary Refill : NONE I&O Intake and Output 08/05/18 00:00 Intake Total 1620 ml Output Total 2200 ml Balance -580 ml Intake Oral 1620 ml Output Urine Total 2200 ml # Bowel Movements 1 General: Alert, Oriented X3, Cooperative, No Acute Distress, Other (c/o rt leg weakness and pain) HEENT: Atraumatic, PERRLA, EOMI, Mucous Memb Moist/[place] Neck: Supple, No JVD Lungs: Clear to Auscultation Heart: Regular Rate Abdomen: Normal Bowel Sounds, Soft, No Tenderness Extremities: No Edema, Other (Left shoulder with diffuse tenderness with increased pain and guarding with movement) Skin: No Rashes, No Breakdown, No Significant Lesion Neuro: Other (and weakness RLE 1to 2/5 on the left 4/5) Psych/Mental Status: Mental Status NL Assessment/Plan Assessment and Plan 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
[2018-08-05] MEDS: QUEtiapine 25 MG (SEROquel) TAB IMMEDIATE RELEASE PO PRN (20:24)
[2018-08-05] MEDS: CYCLOBENZAPRINE 10 MG (FLEXERIL) TAB PO PRN (20:24)
[2018-08-06 06:00] VITALS: BP 131/92
[2018-08-06] MEDS: oxyCODONE/APAP 10/325MG (PERCOCET 10) TABLET PO PRN ×3 (06:30→18:38)
--- NOTE | 2018-08-06 07:37 | Progress Note (SOAP) ---
Subjective Time Seen by a Provider: 07:34 Subjective/Events-last exam Isotopes his left shoulder foot pain. Moving the legs better. Does have some muscle spasm in back. Objective Exam Vital Signs Date Time Temp Pulse Resp B/P (MAP) Pulse Ox O2 Delivery O2 Flow Rate FiO2 08/06/18 06:00 96.1 70 16 131/92 (105) 99 Room Air 08/05/18 21:00 Room Air 08/05/18 16:48 98.7 84 16 120/83 (95) 99 Room Air 08/05/18 08:33 Room Air I & O 08/06/18 07:00 Intake Total 1370 ml Output Total 1500 ml Balance -130 ml Capillary Refill : NONE General Appearance: No Apparent Distress, WD/WN HEENT: Normal ENT Inspection Neck: Full Range of Motion Respiratory: Normal Breath Sounds, No Accessory Muscle Use, No Respiratory Distress Cardiovascular: Regular Rate, Rhythm, No Murmur Gastrointestinal: non tender, soft Assessment/Plan Assessment/Plan Assess & Plan/Chief Complaint Lumbar radiculopathy. Elevated liver tests. Hypothyroid. Tobaccoism. . 07/27/18. Lumbar radiculopathy. Elevated liver tests. Hypothyroid. Tobaccoism. Patient having low back pain today. . 07/30/18. Lumbar radiculopathy. Elevated liver tests. Hypothyroid. Tobaccoism. Patient had pain in the left shoulder in a certain point. . 07/31/18. Lumbar radiculopathy. Elevated liver tests. Hypothyroid. Left shoulder pain. To have an MRI. Insomnia Patient received Seroquel. . 08/01/18. Lumbar radiculopathy. Elevated liver tests. Hypothyroid. Left shoulder pain due to care. Insomnia. . 08/02/18. Liver tests normal now. Lumbar radiculopathy. Hypothyroid. Left shoulder pain better. Patient still has limitation in movement. Insomnia. . 08/03/18. Patient doing better. Lumbar radiculopathy better. Hypothyroid. Left shoulder doing better. Liver tests better. Insomnia better 08/06/18. Lumbar radiculopathy. Hypothyroid. Left shoulder care. Patient seems more positive Clinical Quality Measures DVT/VTE Risk/Contraindication: Risk Factor Score Per Nursin RFS Level Per Nursing on Admit: 2=Moderate CRISTHIAN DEL TORO DO Aug 06, 2018 07:37
[2018-08-06] MEDS: NICOTINE PATCH REMOVAL TP SCH (09:11)
[2018-08-06] MEDS: GABAPENTIN 300 MG (NEURONTIN) CAP PO SCH ×3 (09:11→20:38)
[2018-08-06] MEDS: NICOTINE 21 MG (NICODERM) PATCH TD SCH (09:11)
--- NOTE | 2018-08-06 09:42 | PM & R (SOAP) Progress Note ---
Subjective This was a face to face visit with the patient. Date Seen by Provider: Aug 06, 2018 Time Seen by Provider: 11:50 Subjective/Events-last exam Patient was seen in his room this AM Pain in left shoulder gradually improving Patient Modified Independent for transfers with boyd-cane Review of Systems Musculoskeletal: shoulder pain, back pain Objective Physician Exam Last Set of Vital Signs Vital Signs Date Time Temp Pulse Resp B/P (MAP) Pulse Ox O2 Delivery O2 Flow Rate FiO2 08/06/18 06:00 96.1 70 16 131/92 (105) 99 Room Air Capillary Refill : NONE I&O Intake and Output 08/06/18 00:00 Intake Total 1950 ml Output Total 2300 ml Balance -350 ml Intake Oral 1950 ml Output Urine Total 2300 ml # Bowel Movements 2 General: Alert, Oriented X3, Cooperative, No Acute Distress, Other (c/o rt leg weakness and pain) HEENT: Atraumatic, PERRLA, EOMI, Mucous Memb Moist/[place] Neck: Supple, No JVD Lungs: Clear to Auscultation Heart: Regular Rate Abdomen: Normal Bowel Sounds, Soft, No Tenderness Extremities: No Edema, Other (Left shoulder with diffuse tenderness with increased pain and guarding with movement) Skin: No Rashes, No Breakdown, No Significant Lesion Neuro: Other (and weakness RLE 1to 2/5 on the left 4/5) Psych/Mental Status: Mental Status NL Assessment/Plan Assessment and Plan 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
--- NOTE | 2018-08-06 11:59 | Occupational Ther Daily Note ---
OT Current Status-Daily Note Subjective Pt was upset about the possibility of going home tomorrow without having a doctor who would take his Medicare. Pt reported pain level in L shoulder as an 8 , lower back as a 7. Said his back wasn't hurting him as bad. Nursing notified. Appearance Pt supine, alert, willing to work with OT. Mental Status/Objective Patient Orientation: Person, Place, Time, Situation Functional [place] Measure 0=Not Assessed/NA 4=Minimal Assistance 1=Total Assistance 5=Supervision or Setup 2=Maximal Assistance 6=Modified [place] 3=Moderate Assistance 7=Complete [place] ADL-Treatment Functional [place] Measure 0=Not Assessed/NA 4=Minimal Assistance 1=Total Assistance 5=Supervision or Setup 2=Maximal Assistance 6=Modified [place] 3=Moderate Assistance 7=Complete IndependenceIRFPAI Quality Coding Scale 6 Independent with activity with or without an assistive device 5 Patient requires set up or clean up by helper. Patient completes activity by themselves 4 Supervision or touching assist (CGA). [place] provide cues , steadying assist 3 The helper provides less than half the effort to complete the activity 2 The helper provides more than half the effort to complete the activity 1 Dependent. The helper does all the effort to complete an activity 7 Patient refused to complete or attempt activity 9 The patient did not perform the activity before the current illness or injury 88 Not attempted due to Medical conditions or safety concerns Grooming (FIM): 4 (Pt able to brush teeth and shave with boyd cane in stance at sink with CGA and concern for safety. ) Oral Hygiene (QC): 4 Bathing (FIM): 6 (Pt able to bathe self with Mod I with safety concerns for back precautions in shower. Pt utilizes grab bars and shower bench in shower. ) Shower/Bathe Self (QC): 6 Upper Body (FIM): 6 (Pt able to doff and don shirt while sitting on shower bench. Pt retrieved clothing. ) Upper Body Dressing (QC): 6 Lower Body Dressing (FIM): 6 (Pt able to doff and don shorts and slipper sock while using shower grab bars and shower bench. Pt. retrieved clothing from shelf using boyd cane. ) Lower Body Dressing (QC): 6 On/Off Footwear (QC): 6 Transfers (B, C, W/C) (FIM): 4 (Pt able to transfer from supine to sit independently. Pt able to transfer from sit to stand independently and ambulate with boyd cane with CGA due to reporting "back giving out." Pt able to transfer from stand to sit independently. Pt able to transfer from sit to supine independently. ) Shower Transfer(FIM): 6 (Pt able to transfer from stand with boyd cane to shower bench with use of shower grab bars. ) Pt was able to ambulate to shower with CGA due to recent back "giving out". While Pt. at sink to perform grooming ADL's, back "gave out" and OT steadied him with use of gait belt. Other Treatment Pt ambulated to therapy gym with boyd cane and CGA. Pt participated in PROM on L shoulder. OT provided 3 gentle stretches of flexion on L shoulder to approximately 110 degrees with rest breaks in between each stretch. Pt. able to tolerate each stretch being held approximately 20 seconds. Pt. ambulated back to room with CGA and boyd cane. Pt. transferred to sit on bed to supine independently. All needs met. Education OT Patient Education: Energy conservation, Exercise program, Modified ADL techniques, Progress toward Goal/Update tx plan, Purpose of tx/functional activities, Reviewed precautions, Rehab process, Transfer techniques Teaching Recipient: Patient Teaching Methods: Demonstration, Discussion Response to Teaching: Verbalize Understanding OT Short Term Goals Short Term Goals Transfers (B,C,W/C) (FIM): 5 (met) 1=Demonstrate adherence to instructed precautions during ADL tasks. 2=Patient will verbalize/demonstrate understanding of assistive devices/ modifications for ADL. 3=Patient will improve strength/tolerance for activity to enable patient to perform ADL's. OT [employer] Goals Intermediate Goals Time Frame: Aug 08, 2018 Eating (FIM): 6 Eating (QC): 6 Groomin Oral Hygiene (QC): 6 Bathing(FIM): 6 Shower/Bathe Self (QC): 6 Upper Body Dressing(FIM): 6 Upper Body Dressing (QC): 6 Lower Body Dressing(FIM): 6 Lower Body Dressing (QC): 6 On/Off Footwear (QC): 6 Toileting(FIM): 6 Toileting Hygiene (QC): 6 Transfers (B,C,W/C) (FIM): 6 Toilet/Commode Transfer(FIM): 6 Toilet/Commode Transfer (QC): 6 Shower Transfer(FIM): 6 Additional Goals: 1-Demonstrate ADL Tasks, 2-Verbalize Understanding, 3- ImproveStrength/[place] 1=Demonstrate adherence to instructed precautions during ADL tasks. 2=Patient will verbalize/demonstrate understanding of assistive devices/ modifications for ADL. 3=Patient will improve strength/tolerance for activity to enable patient to perform ADL's. OT Education/Plan Problem List/Assessment Assessment: Decreased Activ Tolerance, Decreased UE Strength, Impaired I ADL's , Impaired Self-Care Skills, Restricted Funct UE ROM Discharge Recommendations Plan/Recommendations: Continue POC Therapy D/C Recommendations: Home w/ Family Support Treatment Plan/Plan of Care Treatment,Training & Education: Yes Patient would benefit from OT for education, treatment and training to promote independence in ADL's, mobility, safety and/or upper extremity function for ADL' s. Plan of Care: ADL Retraining, Functional Mobility, Group Exercise/Act as Ind Treatment Duration: Aug 08, 2018 Frequency: At least 5 of 7 days/Wk (IRF) Estimated Hrs Per Day: 1.5 hours per day Agreement: Yes Rehab Potential: Good Time/GCodes Start Time: 09:15 Stop Time: 10:15 Total Time Billed (hr/min): 60 Billed Treatment Time 1, ADL x 45 minutes, EX x 15 minutes IMELDA FLORES OT Aug 06, 2018 11:59
--- NOTE | 2018-08-06 12:03 | Physical Therapy Daily Note ---
PT Daily Note-Current Subjective Pt. agrees to Rx. During gait pt. c/o near cramp in left hamstring. Was instructed/reviewed on seated hamstring stretch which relaxed this. pt. anxious to DC tomorrow Pain Numeric Pain Scale: 0-No Pain Mental Status Patient Orientation: Normal For Age Transfers Functional [place] Measure 0=Not Assessed/NA 4=Minimal Assistance 1=Total Assistance 5=Supervision or Setup 2=Maximal Assistance 6=Modified [place] 3=Moderate Assistance 7=Complete IndependenceIRFPAI Quality Coding Scale 6 Independent with activity with or without an assistive device 5 Patient requires set up or clean up by helper. Patient completes activity by themselves 4 Supervision or touching assist (CGA). [place] provide cues , steadying assist 3 The helper provides less than half the effort to complete the activity 2 The helper provides more than half the effort to complete the activity 1 Dependent. The helper does all the effort to complete an activity 7 Patient refused to complete or attempt activity 9 The patient did not perform the activity before the current illness or injury 88 Not attempted due to Medical conditions or safety concerns Transfers (B, C, W/C) (FIM): 6 Scootin Rollin Roll Left to Right (QC): 5 Supine to/from Sit: 6 Sit to/from Stand: 6 Sit to Lying (QC): 5 Sit to Stand (QC): 5 Chair/Sap-em-Yetei Xfer(QC): 5 Bed to/from Chair: 6 Car Transfer (QC): 5 Weight Bearing Right Lower Extremity: Right Full Weight Bearing Left Lower Extremity: Left Full Weight Bearing Gait Training Does the Patient Walk?: Yes Gait (FIM): 6 Distance (FIM): 3=150 ft (200x2) Walk 10 feet (QC): 5 Walk 50 ft with 2 Turns(QC): 5 Walk 150 ft (QC): 5 Walking 10ft/uneven surface-QC: 5 Gait Level of Assist: 6 Gait Persons Needed: 0 Gait Assistive Device: Walker Davidson pt. inquired about single point cane and was trained/instructed in its use . Will practice more in PM to determine which device pt. should DC with. Pt. needed cuing this date for equal step length and sequence with cane, but did well after practice Stair Training Stair Training: Handrails/: 1 handrail Stairs (FIM): 6 #of Steps: 12 1 Step (curb) (QC): 5 4 Steps (QC): 5 12 Steps (QC): 5 Stairs: Pattern: Step to Level of Assist: 6 Exercises NuStep Minutes: 23 NuStep Workload: 5 Treatments adjusted fco [place]car[place] and trialed this this morning , will determine which pt. needs in PM Rx Assessment Current Status: Good Progress pt. meets goals, no LOB or incident during rx PT Short Term Goals Short Term Goals Time Frame: Aug 01, 2018 Transfers (B,C,W/C) (FIM): 5 (met) Gait (FIM): 5 (met) Gait Distance Comment: 200' Gait Level of Assist: 5 Gait Assistive Device: FWW PT Traditional [facility] Health Practitioner Goals [facility] Goals PT Traditional [place] Health Practitioner Goals Time Frame: Aug 15, 2018 Transfers (B,C,W/C) (FIM): 6 Sit to Lying (QC): 6 Lying-Sitting on Side/Bed(QC): 6 Sit to Stand (QC): 6 Rollin Roll Left to Right (QC): 6 Chair/Nki-fp-Tdcur Xfer(QC): 6 Car Transfer (QC): 6 Gait (FIM): 6 Distance: 300' Walk 10 feet (QC): 6 Walk 10ft-Uneven Surface(QC): 6 Walk 50ft with 2 Turns (QC): 6 Walk 150 ft (QC): 6 Gait Level of Assist: 6 Gait Assistive Device: FWW Stairs (FIM): 6 # of Steps: 12 1 Step (curb) (QC): 6 4 Steps (QC): 6 12 Steps (QC): 6 Stairs Level Of Assist: 6 PT Plan Treatment/Plan Treatment Plan: Continue Plan of Care Treatment Plan: Bed Mobility, Education, Functional Activity Wilfrido, Functional Strength, Group Therapy, Gait, Safety, Therapeutic Exercise, Transfers Treatment Duration: Aug 15, 2018 Frequency: At least 5 of 7 days/Wk (IRF) Estimated Hrs Per Day: 1.5 hours per day Patient and/or Family Agrees t: Yes Safety Risks/Education Patient Education: Gait Training, Transfer Techniques, Steps, Correct Positioning, Safety Issues Teaching Recipient: Patient Teaching Methods: Demonstration, Discussion Response to Teaching: Verbalize Understanding, Return Demonstration, Reinforcement Needed Time/GCodes Time In: 1100 Time Out: 1200 Total Billed Treatment Time: 60 Total Billed Treatment 1,GT20m,FA15m,EX25m G Codes Necessary: No UBDDY FUENTES PROJECTION CAMERA OPERATOR Aug 06, 2018 12:03
[2018-08-06] MEDS: DICLOFENAC 1% GEL 100 GM (VOLTAREN) TUBE TOP PRN (12:05)
--- NOTE | 2018-08-06 14:54 | Occupational Ther Daily Note ---
OT Current Status-Daily Note Subjective Pt stated he needed to go to the bathroom as soon as OT entered room. Appearance Pt supine in bed, alert and ready to work with OT. Mental Status/Objective Patient Orientation: Person, Place, Time, Situation Functional [place] Measure 0=Not Assessed/NA 4=Minimal Assistance 1=Total Assistance 5=Supervision or Setup 2=Maximal Assistance 6=Modified [place] 3=Moderate Assistance 7=Complete [place] ADL-Treatment Functional [place] Measure 0=Not Assessed/NA 4=Minimal Assistance 1=Total Assistance 5=Supervision or Setup 2=Maximal Assistance 6=Modified [place] 3=Moderate Assistance 7=Complete IndependenceIRFPAI Quality Coding Scale 6 Independent with activity with or without an assistive device 5 Patient requires set up or clean up by helper. Patient completes activity by themselves 4 Supervision or touching assist (CGA). [place] provide cues , steadying assist 3 The helper provides less than half the effort to complete the activity 2 The helper provides more than half the effort to complete the activity 1 Dependent. The helper does all the effort to complete an activity 7 Patient refused to complete or attempt activity 9 The patient did not perform the activity before the current illness or injury 88 Not attempted due to Medical conditions or safety concerns Toileting (FIM): 6 (Pt ambulated himself to bathroom with a hurri cane with Mod I. Pt able to use toilet while standing up. No assist from OT. ) Toileting Hygiene (QC): 6 Transfers (B, C, W/C) (FIM): 4 (Pt transferred from supine to sit on bed independently. Pt transferred from sit to stand with CGA to hurri cane. Pt transferred from stand to sit with CGA into chair. Pt transferred from sit to stand to hurri cane with CGA. Pt transferred from stand to sit on bed independently. ) Other Treatment Pt ambulated to therapy room with hurri cane with CGA. Required CGA due to his back "giving out" earlier in day. Pt. felt less stable on feet. Pt participated in 12 minutes of armbike using right UE only on mod resistance with no breaks. OT provided gentle stretch on L shoulder to approximately 110 degrees flexion x 2 with 20 second hold. Pt. guarded with this activity, and requires encouragement to participate before beginning. Pt ambulated back to his room with CGA. Pt transferred from standing with hurri cane to sit on bed MOD I. Pt asked for ice in his ice packs for his shoulder, OT provided. All needs met. Education OT Patient Education: Energy conservation, Home exercise program, Modified ADL techniques, Progress toward Goal/Update tx plan, Purpose of tx/functional activities, Reviewed precautions, Rehab process, Transfer techniques Teaching Recipient: Patient Teaching Methods: Demonstration, Discussion Response to Teaching: Verbalize Understanding, Return Demonstration OT Short Term Goals Short Term Goals Transfers (B,C,W/C) (FIM): 5 (met) 1=Demonstrate adherence to instructed precautions during ADL tasks. 2=Patient will verbalize/demonstrate understanding of assistive devices/ modifications for ADL. 3=Patient will improve strength/tolerance for activity to enable patient to perform ADL's. OT Care Home Goals Alarm Installation Technician Goals Time Frame: Aug 08, 2018 Eating (FIM): 6 Eating (QC): 6 Groomin Oral Hygiene (QC): 6 Bathing(FIM): 6 Shower/Bathe Self (QC): 6 Upper Body Dressing(FIM): 6 Upper Body Dressing (QC): 6 Lower Body Dressing(FIM): 6 Lower Body Dressing (QC): 6 On/Off Footwear (QC): 6 Toileting(FIM): 6 Toileting Hygiene (QC): 6 Transfers (B,C,W/C) (FIM): 6 Toilet/Commode Transfer(FIM): 6 Toilet/Commode Transfer (QC): 6 Shower Transfer(FIM): 6 Additional Goals: 1-Demonstrate ADL Tasks, 2-Verbalize Understanding, 3- ImproveStrength/Wilfrido 1=Demonstrate adherence to instructed precautions during ADL tasks. 2=Patient will verbalize/demonstrate understanding of assistive devices/ modifications for ADL. 3=Patient will improve strength/tolerance for activity to enable patient to perform ADL's. OT Education/Plan Problem List/Assessment Assessment: Decreased Activ Tolerance, Decreased UE Strength, Impaired I ADL's , Impaired Self-Care Skills, Restricted Funct UE ROM Discharge Recommendations Plan/Recommendations: Continue POC Therapy D/C Recommendations: Home w/ Family Support Treatment Plan/Plan of Care Treatment,Training & Education: Yes Patient would benefit from OT for education, treatment and training to promote independence in ADL's, mobility, safety and/or upper extremity function for ADL' s. Plan of Care: ADL Retraining, Functional Mobility, Group Exercise/Act as Ind Treatment Duration: Aug 08, 2018 Frequency: At least 5 of 7 days/Wk (IRF) Estimated Hrs Per Day: 1.5 hours per day Agreement: Yes Rehab Potential: Good Time/GCodes Start Time: 14:05 Stop Time: 14:35 Total Time Billed (hr/min): 30 Billed Treatment Time 1, EX x 30 minutes IMELDA FLORES OT Aug 06, 2018 14:54
--- NOTE | 2018-08-06 15:12 | Physical Therapy Daily Note ---
PT Daily Note-Current Subjective Pt was in bed upon arrival. Pt states he has no Pn. PT requested pt ambulate with no assistive device. Pain Numeric Pain Scale: 0-No Pain Location: No Pain Reported Mental Status Patient Orientation: Normal For Age Transfers Functional [place] Measure 0=Not Assessed/NA 4=Minimal Assistance 1=Total Assistance 5=Supervision or Setup 2=Maximal Assistance 6=Modified [place] 3=Moderate Assistance 7=Complete IndependenceIRFPAI Quality Coding Scale 6 Independent with activity with or without an assistive device 5 Patient requires set up or clean up by helper. Patient completes activity by themselves 4 Supervision or touching assist (CGA). [place] provide cues , steadying assist 3 The helper provides less than half the effort to complete the activity 2 The helper provides more than half the effort to complete the activity 1 Dependent. The helper does all the effort to complete an activity 7 Patient refused to complete or attempt activity 9 The patient did not perform the activity before the current illness or injury 88 Not attempted due to Medical conditions or safety concerns Transfers (B, C, W/C) (FIM): 6 Scootin Rollin Supine to/from Sit: 6 Sit to/from Stand: 6 Weight Bearing Right Lower Extremity: Right Full Weight Bearing Left Lower Extremity: Left Full Weight Bearing Gait Training Does the Patient Walk?: Yes Distance (FIM): 3=150 ft (200x2) Distance: >250' x 3 Walk 10 feet (QC): 6 Walk 50 ft with 2 Turns(QC): 6 Walk 150 ft (QC): 6 Gait Level of Assist: 6 Gait Persons Needed: 1 Pt ambulate 100ft w/o assistive device with CGA. Pt ambulates rest of Rx using hurrycane. Exercises Standing: Hip Abduction, Hamstring curls, Heel/toe raises, Marching, Sit to Stand Standing Reps: 20 Treatments Pt ambulated 100 ft w/o assistive device before continuing ambulation with hurrycane. Pt performed standing Ex at // bars at 20 reps each before ambulating back to his room. Pt requested he get in bed after Rx with needs were met. Assessment Pt stated he was nervous about not using an assistive device. After ambulating w /o device Pt stated "I feel like I can do it w/o the cane, I just like it there for security". Pt said he feels like he is stronger than when he first arrived and his excited for DC. PT Short Term Goals Short Term Goals Time Frame: Aug 01, 2018 Transfers (B,C,W/C) (FIM): 5 (met) Gait (FIM): 5 (met) Gait Distance Comment: 200' Gait Level of Assist: 5 Gait Assistive Device: FWW PT Well Driller Helper Goals Half-Way Goals PT Half-Way Goals Time Frame: Aug 15, 2018 Transfers (B,C,W/C) (FIM): 6 Sit to Lying (QC): 6 Lying-Sitting on Side/Bed(QC): 6 Sit to Stand (QC): 6 Rollin Roll Left to Right (QC): 6 Chair/Lqj-re-Tiyvi Xfer(QC): 6 Car Transfer (QC): 6 Gait (FIM): 6 Distance: 300' Walk 10 feet (QC): 6 Walk 10ft-Uneven Surface(QC): 6 Walk 50ft with 2 Turns (QC): 6 Walk 150 ft (QC): 6 Gait Level of Assist: 6 Gait Assistive Device: FWW Stairs (FIM): 6 # of Steps: 12 1 Step (curb) (QC): 6 4 Steps (QC): 6 12 Steps (QC): 6 Stairs Level Of Assist: 6 PT Plan Problem List Problem List: Activity Tolerance, Functional Strength Treatment/Plan Treatment Plan: Continue Plan of Care Treatment Plan: Bed Mobility, Education, Functional Activity Wilfr[place], Functional Strength, Group Therapy, Gait, Safety, Therapeutic Exercise, Transfers Treatment Duration: Aug 15, 2018 Frequency: At least 5 of 7 days/Wk (IRF) Estimated Hrs Per Day: 1.5 hours per day Patient and/or Family Agrees t: Yes Safety Risks/Education Patient Education: Gait Training, Correct Positioning, Safety Issues Teaching Recipient: Patient Teaching Methods: Demonstration, Discussion Response to Teaching: Verbalize Understanding, Return Demonstration Time/GCodes Time In: 1440 Time Out: 1510 Total Billed Treatment Time: 30 Total Billed Treatment 1, Gt (15m), Ex (15m) G Codes Necessary: SOHAIL Lutz PT Aug 06, 2018 15:11
[2018-08-06] MEDS ORDERED: QUET25TA73 PO (16:00)
[2018-08-06] MEDS ORDERED: OXYC1TAB12 PO (16:00)
[2018-08-06] MEDS ORDERED: GABA-488 PO (16:00)
[2018-08-06] MEDS ORDERED: NICO-588 TD (16:00)
[2018-08-06] MEDS ORDERED: CYCL10TA9 PO (16:00)
[2018-08-06] MEDS: ENOXAPARIN 40 MG/0.4 ML (LOVENOX) SYR SC SCH (16:14)
[2018-08-06] MEDS: CYCLOBENZAPRINE 10 MG (FLEXERIL) TAB PO PRN (16:14)
[2018-08-06 18:00] VITALS: BP 126/87
[2018-08-06] MEDS: QUEtiapine 25 MG (SEROquel) TAB IMMEDIATE RELEASE PO PRN (20:41)
[2018-08-07] MEDS: oxyCODONE/APAP 10/325MG (PERCOCET 10) TABLET PO PRN ×2 (00:35→06:46)
[2018-08-07 06:50] VITALS: BP 126/81
[2018-08-07] MEDS: GABAPENTIN 300 MG (NEURONTIN) CAP PO SCH ×2 (08:20→11:52)
[2018-08-07] MEDS: NICOTINE 21 MG (NICODERM) PATCH TD SCH (08:20)
[2018-08-07] MEDS: NICOTINE PATCH REMOVAL TP SCH (08:20)
--- NOTE | 2018-08-07 08:30 | Progress Note (SOAP) ---
Subjective Time Seen by a Provider: 08:29 Subjective/Events-last exam Patient to be discharged today. Patient's right leg doing better. [place]opedic [place] Objective Exam Vital Signs Date Time Temp Pulse Resp B/P (MAP) Pulse Ox O2 Delivery O2 Flow Rate FiO2 08/07/18 06:50 97.8 75 18 126/81 (96) 98 Room Air 08/06/18 21:00 Room Air 08/06/18 18:00 98.3 83 18 126/87 (100) 99 Room Air 08/06/18 09:00 Room Air I & O 08/07/18 07:00 Intake Total 2030 ml Output Total 900 ml Balance 1130 ml Capillary Refill : NONE General Appearance: No Apparent Distress, WD/WN Assessment/Plan Assessment/Plan Assess & Plan/Chief Complaint Lumbar radiculopathy. Elevated liver tests. Hypothyroid. Tobaccoism. . 07/27/18. Lumbar radiculopathy. Elevated liver tests. Hypothyroid. Tobaccoism. Patient having low back pain today. . 07/30/18. Lumbar radiculopathy. Elevated liver tests. Hypothyroid. Tobaccoism. Patient had pain in the left shoulder in a certain point. . 07/31/18. Lumbar radiculopathy. Elevated liver tests. Hypothyroid. Left shoulder pain. To have an MRI. Insomnia Patient received Seroquel. . 08/01/18. Lumbar radiculopathy. Elevated liver tests. Hypothyroid. Left shoulder pain due to care. Insomnia. . 08/02/18. Liver tests normal now. Lumbar radiculopathy. Hypothyroid. Left shoulder pain better. Patient still has limitation in movement. Insomnia. . 08/03/18. Patient doing better. Lumbar radiculopathy better. Hypothyroid. Left shoulder doing better. Liver tests better. Insomnia better 08/06/18. Lumbar radiculopathy. Hypothyroid. Left shoulder care. Patient seems more positive. . 08/07/18. Patient at home today. Lumbar radiculopathy. Hypothyroid. Left shoulder tear. Patient excited about going home Clinical Quality Measures DVT/VTE Risk/Contraindication: Risk Factor Score Per Nursin RFS Level Per Nursing on Admit: 2=Moderate CRISTHIAN DEL TORO DO Aug 07, 2018 08:30
--- NOTE | 2018-08-07 09:58 | Therapy Team Discharge Summary ---
Therapy Discharge Summary Discharge Recommendations Date of Discharge 08-07-18 Therapy D/C Recommendations: Home w/ Family Support Occupational Therapy Pt. has been seen by occupational therapy to increase overall strength and independence with daily tasks. Pt. has met most goals, but still requires CGA at times for ambulation, as he reports feeling that his back "may go out." Pt. has participated in activities to increase independence with laundry, kitchen safety, and bathing/dressing. Pt. has been fully educated in following back safety and back precautions. Pt. is discharging home with spouse and family assist. No AE required. Decreased Activ Tolerance, Decreased UE Strength, Restricted Funct UE ROM PT Optical Dispenser Goals Retirement Goals PT Optical Dispenser Goals Time Frame: Aug 15, 2018 Transfers (B,C,W/C) (FIM): 6 Roll Left to Right (QC): 6 Sit to Lying (QC): 6 Lying-Sitting on Side/Bed(QC): 6 Sit to Stand (QC): 6 Chair/Vfd-jo-Ozaor Xfer(QC): 6 Car Transfer (QC): 6 Gait (FIM): 6 Distance: 300' Walk 10 feet (QC): 6 Walk 10ft-Uneven Surface(QC): 6 Walk 50ft with 2 Turns (QC): 6 Walk 150 ft (QC): 6 Gait Level of Assist: 6 Gait Assistive Device: FWW Stairs (FIM): 6 # of Steps: 12 1 Step (curb) (QC): 6 4 Steps (QC): 6 12 Steps (QC): 6 Stairs Level Of Assist: 6 OT Retirement Goals Optical Dispenser Goals Time Frame: Aug 08, 2018 Eating (FIM): 6 (met) Eating (QC): 6 (met) Oral Hygiene (QC): 6 (not met) Grooming(FIM): 6 (not met) Bathing(FIM): 6 (met) Shower/Bathe Self (QC): 6 (met) Upper Body Dressing(FIM): 6 (met) Upper Body Dressing (QC): 6 (met) Lower Body Dressing(FIM): 6 (met) Lower Body Dressing (QC): 6 (met) On/Off Footwear (QC): 6 (met) Toileting(FIM): 6 (met) Toileting Hygiene (QC): 6 (met) Transfers (B,C,W/C) (FIM): 6 (not met) Toilet/Commode Transfer(FIM): 6 (met) Toilet/Commode Transfer (QC): 6 (met) Shower Transfer(FIM): 6 (not met) Additional Goals: 1-Demonstrate ADL Tasks, 2-Verbalize Understanding, 3- ImproveStrength/[place] 1=Demonstrate adherence to instructed precautions during ADL tasks. 2=Patient will verbalize/demonstrate understanding of assistive devices/ modifications for ADL. 3=Patient will improve strength/tolerance for activity to enable patient to perform ADL's. Speech Retirement Goals Retirement Goals No goals established as pt does not require skilled IMELDA CLARK OT Aug 07, 2018 09:58
--- NOTE | 2018-08-07 10:40 | PM & R (SOAP) Progress Note ---
Subjective This was a face to face visit with the patient. Date Seen by Provider: Aug 07, 2018 Time Seen by Provider: 07:30 Subjective/Events-last exam Patient was seen in his room this AM [place] for discharge Current meds reviewed and RXS provided Date Identified: Aug 07, 2018 Time Identified: 07:30 Medication Intervention: Discharge meds reviewed Objective Physician Exam Last Set of Vital Signs Vital Signs Date Time Temp Pulse Resp B/P (MAP) Pulse Ox O2 Delivery O2 Flow Rate FiO2 08/07/18 09:00 Room Air 08/07/18 06:50 97.8 75 18 126/81 (96) 98 Capillary Refill : NONE I&O Intake and Output 08/07/18 00:00 Intake Total 1650 ml Balance 1650 ml Intake Oral 1650 ml # Voids 6 # Bowel Movements 1 General: Alert, Oriented X3, Cooperative, No Acute Distress, Other (c/o rt leg weakness and pain) HEENT: Atraumatic, PERRLA, EOMI, Mucous Memb Moist/[place] Neck: Supple, No JVD Lungs: Clear to Auscultation Heart: Regular Rate Abdomen: Normal Bowel Sounds, Soft, No Tenderness Extremities: No Edema, Other (Left shoulder with diffuse tenderness with increased pain and guarding with movement) Skin: No Rashes, No Breakdown, No Significant Lesion Neuro: Other (and weakness RLE 1to 2/5 on the left 4/5) Psych/Mental Status: Mental Status NL Assessment/Plan Assessment and Plan Home today with spouse and outpatient PT F/U with PCP and ortho See orders Co-Morbidities that are continuing to impact the rehab process: (include details ) JEOVANY COUGHLIN MD Aug 07, 2018 10:40
--- NOTE | 2018-08-07 11:27 | Therapy Team Discharge Summary ---
Therapy Discharge Summary Discharge Recommendations Date of Discharge Therapy D/C Recommendations: Home w/ Family Support Physical Therapy Patient came to rehab with lumbar radiculopathy. Upon evaluation patient performed bed mobility with SBA, supine <-> sit with SBA, sit <-> stand with SBA , transfers with SBA, car transfer with SBA, ambulated 50' with a rolling walker with SBA (including 50' with at least 2 turns of 90 degrees and 10' over an uneven surface), and can go up and down 1 step using a rolling walker with CGA. Patient has been performing bed mobility and transfer training, balance and endurance training, functional strengthening, stair training, gait training , and education. Patient has made good progress and has met all of his fpc goals except for distance of ambulation. Now, patient performs bed mobility and transfers with mod I, ambulates 200' with a boyd walker with mod I (including 50' with at least 2 turns of 90 degrees and 10' over an uneven surface), car transfer mod I, and can go up and down 12 steps using 1 handrail with mod I. Patient is being discharged from this facility today and will be discharged from PT at this time. Occupational Therapy Decreased Activ Tolerance, Decreased UE Strength, Restricted Funct UE ROM PT Longterm Goals Huc Ob Goals PT Longterm Goals Time Frame: Aug 15, 2018 Transfers (B,C,W/C) (FIM): 6 Roll Left to Right (QC): 6 Sit to Lying (QC): 6 Lying-Sitting on Side/Bed(QC): 6 Sit to Stand (QC): 6 Chair/Hum-gt-Ovmyc Xfer(QC): 6 Car Transfer (QC): 6 Gait (FIM): 6 Distance: 300' Walk 10 feet (QC): 6 Walk 10ft-Uneven Surface(QC): 6 Walk 50ft with 2 Turns (QC): 6 Walk 150 ft (QC): 6 Gait Level of Assist: 6 Gait Assistive Device: FWW Stairs (FIM): 6 # of Steps: 12 1 Step (curb) (QC): 6 4 Steps (QC): 6 12 Steps (QC): 6 Stairs Level Of Assist: 6 OT Longterm Goals Longterm Goals Time Frame: Aug 08, 2018 Eating (FIM): 6 (met) Eating (QC): 6 (met) Oral Hygiene (QC): 6 (not met) Grooming(FIM): 6 (not met) Bathing(FIM): 6 (met) Shower/Bathe Self (QC): 6 (met) Upper Body Dressing(FIM): 6 (met) Upper Body Dressing (QC): 6 (met) Lower Body Dressing(FIM): 6 (met) Lower Body Dressing (QC): 6 (met) On/Off Footwear (QC): 6 (met) Toileting(FIM): 6 (met) Toileting Hygiene (QC): 6 (met) Transfers (B,C,W/C) (FIM): 6 (not met) Toilet/Commode Transfer(FIM): 6 (met) Toilet/Commode Transfer (QC): 6 (met) Shower Transfer(FIM): 6 (not met) Additional Goals: 1-Demonstrate ADL Tasks, 2-Verbalize Understanding, 3- ImproveStrength/[place] 1=Demonstrate adherence to instructed precautions during ADL tasks. 2=Patient will verbalize/demonstrate understanding of assistive devices/ modifications for ADL. 3=Patient will improve strength/tolerance for activity to enable patient to perform ADL's. Speech Longterm Goals Longterm Goals No goals established as pt does not require skilled ST DIMITRIS CONTRERAS PT Aug 07, 2018 11:26
[2018-08-07] MEDS: CYCLOBENZAPRINE 10 MG (FLEXERIL) TAB PO PRN (11:52)
[2018-08-07] MEDS ORDERED: oxyCODONE/APAP 5/325MG (PERCOCET 5) TABLET PO NR (12:00)
== END 2018-08-07 12:23 | disposition home or self-care (01) | DRG 552 ==
PROVIDERS: ADMIT Physical Medicine & Rehabilitation; ATTEND Physical Medicine & Rehabilitation
DX: M51.16 Intervertebral disc disorders with radiculopathy, lumbar region (principal); F17.210 Nicotine dependence, cigarettes, uncomplicated; E03.9 Hypothyroidism, unspecified; R79.89 Other specified abnormal findings of blood chemistry
CPT/HCPCS: 36415; 73030; 73221; 80053; 80076; 85007; 85027